=== PATIENT | male | born 1945 | race Caucasian/White ===

== ENCOUNTER 2016-04-25 14:23 | Emergency (ER) ==
[2016-04-25 14:31] VITALS: BP 128/67; TEMP 98.4; BMI 18.6
--- NOTE | 2016-04-25 15:26 | CT ---
EXAM: CT of the chest without contrast History: Right chest wall pain and cough. Comparison: Chest radiograph 02/09/2016, chest CT 02/06/2016 Technique: Multiplanar CT images through the thorax were obtained without the administration of IV contrast. 3-D reconstructions were also provided. Findings: Heart size is within normal limits. No pericardial effusion. Coronary calcifications. Ectatic ascending aorta again noted. No pathologically enlarged axillary or mediastinal lymph nodes . Limited evaluation for hilar lymph nodes without IV contrast but no bulky hilar adenopathy is see n. Calcified granulomas again seen within the thorax. Emphysema again noted. Resolved left lower lobe infiltrate. Interval development of mild right lower lobe infiltrate. No pneumothorax. No pl eural fluid. Within the visualized upper abdomen, calcified granulomas within the liver and spleen. Cholecystect [place]. Left adrenal adenoma again noted. Scattered colonic stool. Tiny hiatal hernia. Mid th oracic compression deformity is not significantly changed and no significant interval change in the compression deformity within the lower thoracic and visualized lumbar spine. A few old healed right -sided rib fractures. Subacute appearing right posterior 11th rib fracture with callus formation. Impression: 1. Interval development of mild right lower lobe infiltrate. Resolved left lower lobe infiltrate. 2. Emphysema. 3. Ectatic ascending aorta. 4. Coronary artery disease. 5. Subacute right posterior 11th rib fracture.
--- NOTE | 2016-04-25 15:34 | ED.PDOC ---
General ED Provider: Dr. AWA OCONNOR-ER Chief Complaint: Chest Wall Injury/Pain Stated Complaint: i coughed and i hurt Time Seen by Physician: 14:30 Mode of Arrival: Walk-In Information Source: Patient Exam Limitations: No limitations [facility] Nursing and Triage Documentation Reviewed and Agree: Yes Trauma/Injury Complaint Exam - Truncal Trauma Complaint/Exam Location of Pain: Reports: Right, Lower, Posterior Onset: 2 days Symptoms Are: Still present Onset of Pain: Reports: Immediate Initial Severity: Mild Current Severity: Mild Mechanism: Reports: Other Aggravating: Reports: Deep breathing, Cough Alleviating: Reports: None Associated Signs and Symptoms: Denies: Short of air, Chest pain, Cough, Hematuria, Abdominal pain, Fever, Nausea, Vomiting Immobilization Removed Post Exam: No Vertebral Tenderness Present: No Vertebral Deformity Present: No Trachial Deviation Present: No JVD Present: No Crepitus Present: No Diminished Breath Sounds: No Reproducible Pain at: right chest wall Muffled Heart Sounds Present: No Paradoxical Chest Wall Movement Present: No Abdominal Guarding Present: No Abdominal Rigidity Present: No Referred Shoulder Pain (Kehr's Sign) Present: No Skin Findings: Present: Normal findings Differential Diagnoses: Chest Wall Contusion, Rib Fracture Review of Systems - Review Of Systems Constitutional: Reports: No symptoms Eyes: Reports: No symptoms Ears, Nose, Mouth, Throat: Reports: No symptoms Respiratory: Reports: Cough Cardiac: Reports: Chest pain (chest wall pain with coughing) GI: Reports: No symptoms : Reports: No symptoms Musculoskeletal: Reports: No symptoms Skin: Reports: No symptoms Neurological: Reports: No symptoms Endocrine: Reports: No symptoms Hematologic/Lymphatic: Reports: No symptoms All Other Systems: Reviewed and Negative Past Medical History - Past Medical History Previously Healthy: No Endocrine: Reports: Dyslipidemia Cardiovascular: Reports: Hypertension Respiratory: Reports: COPD Hematological: Reports: None Gastrointestinal: Reports: GERD Genitourinary: Reports: None Neuro/Psych: Reports: None Musculoskeletal: Reports: Back Pain, Other Cancer: Reports: None Other Pertinent Past Medical History: BACK PROBLEMS, EMPHESEMA: 12/06/15 hospitalized 12/04/15. with back pain. - Surgical History General Surgical History: Reports: Cholecystectomy, Orthopedic (right hipSEVERAL PAST OPERATIONS ON RIGHT HIP IN THE PAST), Back Surgery - Family History Family History: Reports: None - Social History Smoking Status: Current every day smoker, Heavy tobacco smoker Hx Substance Use: No Alcohol Screening: None Lives: With family - Immunizations Influenza Vaccine within 12 Months: No Pneumococcal Vaccine up to Date: Yes (LAST YEAR) Physical Exam - Physical Exam Appearance: Well-appearing Pain Distress: Mild Eyes: NEYDA, EOMI, Conjunctiva clear ENT: Ears normal, Nose normal, Oropharynx normal Neck: Supple Respiratory: Airway patent, Breath sounds clear, Breath sounds equal, Respirations nonlabored Cardiovascular: RRR (noted right chest wall pain to palpation), Pulses normal, No rub, No murmur GI/: Soft Musculoskeletal: Normal strength Skin: Warm, Dry, Normal color Neurological: Sensation intact, Motor intact, Reflexes intact, Cranial nerves intact, Alert, Oriented Psychiatric: Affect appropriate, Mood appropriate Interpretation - Radiology Interpretation Radiology Interpretation By: Radiologist Radiology Results: Negative Exam Interpreted: CT Scan Critical Care Note - Critical Care Note Total Time (mins): 0 Course - Course Orders, Labs, Meds: Orders Category Date Time Status CT CHEST W/O CONTRAST Stat RADS 04/25/16 14:41 Completed Vital Signs: Temp Pulse Resp BP Pulse Ox 04/25/16 14:24 98.4 F 86 20 128/67 96 Departure - Departure Time of Disposition: 15:34 Disposition: HOME SELF-CARE Discharge Problem: Chest wall pain Instructions: Chest Wall Pain (ED) Condition: Good Pt referred to PMD for follow-up: Yes Additional Instructions: norco 7.5mg q 4hrs prn pain #15--levaquin 500mg #7---f/u with pcp Allergies/Adverse Reactions: Allergies No Known Allergies Allergy (Verified 04/25/16 14:35) Home Medications: Ambulatory Orders Morphine Sulfate [Morphine Sulfate ER] 30 mg PO BID PRN #30 cap.er.pel 01/24/16 Gabapentin [Neurontin] 300 mg PO QID #1 02/09/16 Oxycodone-Acetaminophen 10-325 [Percocet 10-325] 1 tab PO Q4H #1 tablet Polyethylene Glycol 3350 [Miralax] 17 gm PO DAILY PRN #1 delmi 03/02/16 Disposition Discussed With: Patient
== END 2016-04-25 15:44 | disposition home or self-care (01) ==
LOC: ED 14:23
DX: R07.89 Other chest pain (principal); R05 Cough; F17.210 Nicotine dependence, cigarettes, uncomplicated
CPT/HCPCS: 99282

== ENCOUNTER 2016-05-03 17:55 | Emergency (ER) | payer OTHER ==
[2016-05-03 18:04] VITALS: BP 160/74; TEMP 98; BMI 19.1
--- NOTE | 2016-05-03 18:17 | ED.PDOC ---
General Stated Complaint: Patient iis a 71 year old male who come to the Er with shortness of breath admits to smoking, He states he was recently treated for pneumonia. Took last antibiotic yesterday. Also c/o swelling both legs x 4 months. Does have rib pain Fracture on the left that happened from couging. Time Seen by Physician: 19:21 Exam Limitations: No limitations Nursing and Triage Documentation Reviewed and Agree: Yes <PAULY BAEZA - Last Filed: 05/03/16 21:45> Mode of Arrival: Walk-In Information Source: Patient <USMAN HERNANDEZ JR - Last Filed: 05/04/16 07:04> ED Provider: Dr. USMAN HERNANDEZ JR (PAULY BAEZA) (USMAN HERNANDEZ JR) Chief Complaint: Respiratory Complaint Primary Care Provider: (PAULY BAEZA) Review of Systems - Review Of Systems Constitutional: Reports: No symptoms Eyes: Reports: No symptoms Ears, Nose, Mouth, Throat: Reports: No symptoms Respiratory: Reports: Cough, Short of air, Wheezing Cardiac: Reports: No symptoms GI: Reports: No symptoms : Reports: No symptoms Musculoskeletal: Reports: Joint swelling Skin: Reports: No symptoms Neurological: Reports: No symptoms Endocrine: Reports: No symptoms Hematologic/Lymphatic: Reports: No symptoms All Other Systems: Reviewed and Negative <PAULY BAEZA - Last Filed: 05/03/16 21:45> Past Medical History - Past Medical History Previously Healthy: No Endocrine: Reports: Dyslipidemia Cardiovascular: Reports: Hypertension Respiratory: Reports: COPD Hematological: Reports: None Gastrointestinal: Reports: GERD Genitourinary: Reports: None Neuro/Psych: Reports: None Musculoskeletal: Reports: Back Pain, Other Cancer: Reports: None Other Pertinent Past Medical History: BACK PROBLEMS, EMPHESEMA: 12/06/15 hospitalized 12/04/15. with back pain. - Surgical History General Surgical History: Reports: Cholecystectomy, Orthopedic (right hipSEVERAL PAST OPERATIONS ON RIGHT HIP IN THE PAST), Back Surgery - Family History Family History: Reports: None - Social History Smoking Status: Current every day smoker Hx Substance Use: No Alcohol Screening: None - Immunizations Tetanus Shot up to Date: (unknown) Influenza Vaccine within 12 Months: No Pneumococcal Vaccine up to Date: Yes (LAST YEAR) <USMAN HERNANDEZ JR - Last Filed: 05/04/16 07:04> Physical Exam - Physical Exam Appearance: Ill-appearing Ill-appearing: Mild Pain Distress: Mild Neck: Supple Respiratory: Airway patent Musculoskeletal: Edema Psychiatric: Affect appropriate, Mood appropriate <USMAN HERNANDEZ JR - Last Filed: 05/04/16 07:04> Interpretation - Radiology Interpretation Radiology Interpretation By: Radiologist Radiology Results: Negative Exam Interpreted: CXR <PAULY BAEZA - Last Filed: 05/03/16 21:45> Re-Evaluation - Re-Evaluation Time of Re-Evaluation: 21:42 Status: Improved (feel better after breathing treatments. ) <PAULY BAEZA - Last Filed: 05/03/16 21:45> Physician Notification - Case Discussed Endorsed To/Discussed With: DR BAEZA Time of Discussion: 19:20 <USMAN HERNANDEZ JR - Last Filed: 05/04/16 07:04> Critical Care Note - Critical Care Note Total Time (mins): 0 <PAULY BAEZA - Last Filed: 05/03/16 21:45> Course - Course Hematology/Chemistry: 05/03/16 19:20 05/03/16 19:30 <PAULY BAEZA - Last Filed: 05/03/16 21:45> - Course Hematology/Chemistry: 05/03/16 19:20 05/03/16 19:30 <USMAN HERNANDEZ JR - Last Filed: 05/04/16 07:04> - Course Orders, Labs, Meds: Lab Review 05/03/16 05/03/16 19:20 19:30 WBC 11.10 H RBC 4.09 L Hgb 11.8 L Hct 37.3 L MCV 91.2 MCH 28.9 MCHC 31.6 L RDW Coeff of Nino 15.7 H Plt Count 371 Immature Gran % (Auto) 0.2 Neut % (Auto) 67.9 Lymph % (Auto) 24.1 [place] % (Auto) 6.9 Eos % (Auto) 0.0 Baso % (Auto) 0.9 Immature Gran # (Auto) 0.0 Neut # 7.5 H Lymph # 2.7 [place] # 0.8 Eos # 0.0 Baso # 0.1 Puncture Site Rb O2 Saturation 94.0 L ABG pH 7.442 ABG pCO2 40.8 ABG pO2 69.0 L ABG HCO3 27.8 H ABG Total CO2 29 H ABG Base Excess 4 H Braulio Test + FiO2 % 21.0 Sodium 137 Potassium 3.8 Chloride 98 Carbon Dioxide 28 Anion Gap 14.8 BUN 20 H Creatinine 0.88 Estimated GFR (MDRD) 85.00 BUN/Creatinine Ratio 22.72 Glucose 90 Calcium 9.6 Total Bilirubin 0.43 AST 23 ALT 14 Alkaline Phosphatase 108 Total Creatine Kinase 329 CK-MB (CK-2) 10.4 H* CK-MB (CK-2) % 3.94282 Troponin I 0.0140 B-Natriuretic Peptide 84 Total Protein 7.9 Albumin 3.8 Globulin 4.1 Albumin/Globulin Ratio 0.93 Orders Category Date Time Status ABG DRAW REQUEST Stat CARDIO 05/03/16 19:12 Completed EKG-(ED ONLY) Stat CARDIO 05/03/16 19:11 Completed NEBULIZER TREATMENT Stat CARDIO 05/03/16 20:11 Completed ED IV/MEDIPORT/POWERPORT .ONCE EMERGENCY 05/03/16 20:11 Active ABG Stat LAB 05/03/16 19:30 Completed B-TYPE NATRIURETIC PEPTIDE Stat LAB 05/03/16 19:30 Completed BLOOD CULTURE Stat LAB 05/03/16 19:30 Received CBC W/ AUTO DIFF Stat LAB 05/03/16 19:20 Completed COMPREHENSIVE METABOLIC PANEL Stat LAB 05/03/16 19:30 Completed CREATINE KINASE Stat LAB 05/03/16 19:30 Completed TROPONIN I Stat LAB 05/03/16 19:30 Completed 0.9 % Sodium Chloride [Saline Flush] MEDS 05/03/16 20:11 Discontinued 1 syr IVF PRN PRN Ipratropium/Albuterol Neb [Duoneb] MEDS 05/03/16 20:11 Discontinued 1 vial NEB ONCE STA Morphine Sulfate [Morphine 2 mg/ml Syringe] MEDS 05/03/16 21:35 Discontinued 2 mg IM ONCE STA CHEST, 1V AP ONLY Stat RADS 05/03/16 19:11 Completed Medications Discontinued Medications Generic Name Dose Route Start Last Admin Trade Name Freq PRN Reason Stop Dose Admin Albuterol/Ipratropium 1 vial 05/03/16 20:11 05/03/16 20:22 Duoneb NEB 05/03/16 20:12 1 vial ONCE STA Administration Morphine Sulfate 2 mg 05/03/16 21:35 05/03/16 21:41 Morphine 2 Mg/Ml Syringe IM 05/03/16 21:36 2 mg ONCE STA Administration Sodium Chloride 1 syr 05/03/16 20:11 Saline Flush IVF PRN PRN To flush IV (PAULY BAEZA) Vital Signs: Temp Pulse Resp BP Pulse Ox 05/03/16 17:56 98 F 85 24 160/74 H 97 (PAULY BAEZA) (USMAN HERNANDEZ JR) Departure - Departure Time of Disposition: 21:36 Disposition Discussed With: Patient <PAULY BAEZA - Last Filed: 05/03/16 21:45> - Departure Pt referred to PMD for follow-up: No (DEFER TO DR BAEZA) <USMAN HERNANDEZ JR - Last Filed: 05/04/16 07:04> - Departure Disposition: HOME SELF-CARE Discharge Problem: Bilateral lower extremity edema, Rib pain on right side Instructions: Rib Contusion (ED), Chest Wall Pain (ED), Leg Edema (ED) Condition: Stable Additional Instructions: increase you Lasix to 40mg daily Call PCP in the morning and let them know that you have increased the Lasix medications Allergies/Adverse Reactions: Allergies No Known Allergies Allergy (Verified 05/03/16 18:07) Home Medications: Ambulatory Orders Morphine Sulfate [Morphine Sulfate ER] 30 mg PO BID PRN #30 cap.er.pel 01/24/16 Gabapentin [Neurontin] 300 mg PO QID #1 02/09/16 Oxycodone-Acetaminophen 10-325 [Percocet 10-325] 1 tab PO Q4H #1 tablet Polyethylene Glycol 3350 [Miralax] 17 gm PO DAILY PRN #1 delmi 03/02/16
[2016-05-03 19:39] LABS: BASOPHILS # (AUTO) 0.1 K/uL (0-0.2); BASOPHILS % (AUTO) 0.9 % (0.0-3.0); HEMATOCRIT 37.3 % (42.0-52.0); HEMOGLOBIN 11.8 g/dl (14.0-18.0); IMMATURE GRANULOCYTE % (AUTO) 0.2 % (0.0-5.0); LYMPHOCYTES # (AUTO) 2.7 K/uL (0.60-3.4); LYMPHOCYTES % (AUTO) 24.1 (10.0-50.0); MEAN CORPUSCULAR HEMOGLOBIN 28.9 pg (27.0-31.0); MEAN CORPUSCULAR HGB CONC 31.6 (31.8-35.4); MEAN CORPUSCULAR VOLUME 91.2 fl (80.0-94.0); MONOCYTES # (AUTO) 0.8 K/uL (0.4-2.0); MONOCYTES % (AUTO) 6.9 (0-10); NEUTROPHILS # (AUTO) 7.5 K/ul (2.0-6.9); NEUTROPHILS % (AUTO) 67.9; PLATELET COUNT 371 10^3/uL (140-440); RED BLOOD COUNT 4.09 10^6/ul (4.70-6.10)
[2016-05-03 19:52] LABS: ABG BASE EXCESS 4 (-2.0-2.0); ABG HCO3 27.8 (22.0-26.0); ABG PCO2 40.8 mmHg (35-45); ABG PH 7.442 (7.35-7.45); ABG TCO2 29 (22.0-28.0)
[2016-05-03] MEDS ORDERED: DUONEB NEB STA (20:11)
[2016-05-03] MEDS ORDERED: MORPHINE 4 MG/ML SYRINGE IVP STA (20:11)
[2016-05-03] MEDS ORDERED: ZOFRAN 4 MG/2 ML IVP STA (20:11)
[2016-05-03 20:25] LABS: ALBUMIN 3.8 g/dL (3.4-5.0); ALBUMIN/GLOBULIN RATIO 0.93; ANION GAP 14.8; BILIRUBIN,TOTAL 0.43 mg/dL (0.00-1.20); BUN/CREATININE RATIO 22.72; CALCIUM 9.6 mg/dL (8.2-10.2); CREATININE 0.88 mg/dL (0.60-1.10); POTASSIUM 3.8 mmol/L (3.5-5.1); TOTAL PROTEIN 7.9 g/dL (5.8-8.1); TROPONIN I 0.014 ng/ml (0.0000-0.4000)
[2016-05-03 20:29] LABS: CREATINE KINASE MB 10.4 ng/ml (0.0-3.6)
--- NOTE | 2016-05-03 20:39 | DI ---
EXAM: Chest two views HISTORY: Shortness of breath COMPARISON: 02/09/2016 TECHNIQUE: Two views of the chest were performed FINDINGS: The lungs are clear. There is no pleural effusion or pneumothorax. The heart is normal in size. The mediastinal contour is normal. Old fourth right rib fracture. There are no acute abno rmalities of the bones. IMPRESSION: 1. No acute cardiopulmonary process. 2. Chronic obstructive pulmonary disease
[2016-05-03] MEDS ORDERED: MORPHINE 2 MG/ML SYRINGE IM STA (21:35)
== END 2016-05-03 22:00 | disposition home or self-care (01) ==
LOC: ED 17:55
DX: R60.0 Localized edema (principal); R07.81 Pleurodynia; R06.02 Shortness of breath; I10 Essential (primary) hypertension; J44.9 Chronic obstructive pulmonary disease, unspecified; F17.210 Nicotine dependence, cigarettes, uncomplicated; E78.5 Hyperlipidemia, unspecified; Z79.899 Other long term (current) drug therapy
CPT/HCPCS: 36415; 80053; 82550; 82553; 82803; 83880; 84484; 85025; 87040; 93005; 93010; 94640; 96372; 99283

== ENCOUNTER 2016-05-23 11:35 | Emergency (ER) ==
[2016-05-23 11:40] VITALS: BP 151/93; TEMP 97.1; BMI 17.9
--- NOTE | 2016-05-23 11:53 | ED.PDOC ---
General ED Provider: Dr. USMAN HERNANDEZ JR Chief Complaint: Chest Wall Injury/Pain Stated Complaint: states he has a fractured posterior lower right rib 2-3 weeks ago. states now having anterior pain to anterior right lower ribs. patient states there is "something in there." states that he coughed and that's what fractured posterior rib. patient thinks now has a fracture in the front. 1 WEEK 97.1 84 16 98% 151/93 10 TOOK PERCOCET. SMOKER Time Seen by Physician: 11:51 Mode of Arrival: Walk-In Information Source: Patient Exam Limitations: No limitations Primary Care Provider: BON LE Nursing and Triage Documentation Reviewed and Agree: No Review of Systems - Review Of Systems Constitutional: Reports: No symptoms Eyes: Reports: No symptoms Ears, Nose, Mouth, Throat: Reports: Throat pain Respiratory: Reports: Cough, Short of air Cardiac: Reports: Chest pain GI: Reports: No symptoms : Reports: No symptoms Musculoskeletal: Reports: Muscle pain, Other (RIGHT RIBS) Skin: Reports: No symptoms Neurological: Reports: No symptoms Endocrine: Reports: No symptoms Hematologic/Lymphatic: Reports: No symptoms All Other Systems: Other Past Medical History - Past Medical History Previously Healthy: No Endocrine: Reports: Dyslipidemia, Other (rheumatic fever as a child) Cardiovascular: Reports: Hypertension, A-Fib Respiratory: Reports: COPD Hematological: Reports: None Gastrointestinal: Reports: GERD, Liver Genitourinary: Reports: None Neuro/Psych: Reports: None, Migraine Musculoskeletal: Reports: Arthritis, Back Pain, Other Cancer: Reports: None Other Pertinent Past Medical History: BACK PROBLEMS, EMPHESEMA: 12/06/15 hospitalized 12/04/15. with back pain. - Surgical History General Surgical History: Reports: Cholecystectomy, Orthopedic (right hipSEVERAL PAST OPERATIONS ON RIGHT HIP IN THE PAST), Back Surgery - Family History Family History: Reports: None - Social History Smoking Status: Current every day smoker Hx Substance Use: No Alcohol Screening: None - Immunizations Influenza Vaccine within 12 Months: No Pneumococcal Vaccine up to Date: Yes (LAST YEAR) Physical Exam - Physical Exam Appearance: Well-appearing Pain Distress: Moderate Eyes: NEYDA, EOMI, Conjunctiva clear ENT: Ears normal, Nose normal, Oropharynx normal Neck: Supple Respiratory: Airway patent, Breath sounds clear, Breath sounds equal, Respirations nonlabored Cardiovascular: RRR, Pulses normal, No rub, No murmur GI/: Soft, Nontender, No masses, Bowel sounds normal, No Organomegaly Musculoskeletal: Normal strength, ROM intact, No edema, No calf tenderness ( [id number] RIGHT CHEST RIB9-10) Skin: Warm, Dry, Normal color Neurological: Sensation intact, Motor intact, Reflexes intact, Cranial nerves intact, Alert, Oriented Psychiatric: Affect appropriate, Mood appropriate Critical Care Note - Critical Care Note Total Time (mins): 0 Course - Course Hematology/Chemistry: 05/23/16 12:20 05/23/16 12:20 Orders, Labs, Meds: Lab Review 05/23/16 05/23/16 12:20 14:10 WBC 9.52 RBC 3.97 L Hgb 11.5 L Hct 35.4 L MCV 89.2 MCH 29.0 MCHC 32.5 RDW Coeff of Nino 15.3 H Plt Count 335 Immature Gran % (Auto) 0.3 Neut % (Auto) 69.8 Lymph % (Auto) 23.3 [place] % (Auto) 5.9 Eos % (Auto) 0.1 Baso % (Auto) 0.6 Immature Gran # (Auto) 0.0 Neut # 6.6 Lymph # 2.2 [place] # 0.6 Eos # 0.0 Baso # 0.1 Sodium 136 Potassium 3.9 Chloride 97 L Carbon Dioxide 26 Anion Gap 16.9 BUN 21 H Creatinine 0.82 Estimated GFR (MDRD) 92.00 BUN/Creatinine Ratio 25.60 Glucose 99 Calcium 9.5 Total Bilirubin 0.31 AST 43 H ALT 25 Alkaline Phosphatase 87 Total Protein 7.3 Albumin 3.6 Globulin 3.7 Albumin/Globulin Ratio 0.97 Amylase 33 Lipase 11 Urine Color Yellow Urine Clarity Clear Urine pH 7.0 Ur Specific [place] 1.015 Urine Protein Negative Urine Glucose (UA) Negative Urine Ketones Negative Urine Blood Trace-intact Urine Nitrite Negative Urine Bilirubin Negative Urine Urobilinogen 0.2 Ur Leukocyte Esterase Negative Urine Microscopic RBC 0-2 Urine Microscopic WBC 0-2 Ur Squamous Epith Cells Not present H. pylori IgG Antibody Negative Orders Category Date Time Status AMYLASE Stat LAB 05/23/16 12:20 Completed CBC W/ AUTO DIFF Stat LAB 05/23/16 12:20 Completed COMPREHENSIVE METABOLIC PANEL Stat LAB 05/23/16 12:20 Completed H. PYLORI SCREEN Stat LAB 05/23/16 12:20 Completed LIPASE Stat LAB 05/23/16 12:20 Completed URINALYSIS C & S IF INDICATED Stat LAB 05/23/16 14:10 Completed Hydromorphone HCl [Dilaudid 1 mg/ml Syringe] MEDS 05/23/16 14:19 Discontinued 1 mg IM ONCE STA Ondansetron HCl/Pf [Zofran 4 mg/2 ml] MEDS 05/23/16 14:20 Discontinued 4 mg IM ONCE STA CT ABDOMEN/PELVIS WO CONTRAST Stat RADS 05/23/16 11:58 Completed Medications Discontinued Medications Generic Name Dose Route Start Last Admin Trade Name Freq PRN Reason Stop Dose Admin Hydromorphone HCl 1 mg 05/23/16 14:19 05/23/16 14:36 Dilaudid 1 Mg/Ml Syringe IM 05/23/16 14:20 1 mg ONCE STA Administration Ondansetron HCl 4 mg 05/23/16 14:20 05/23/16 14:36 Zofran 4 Mg/2 Ml IM 05/23/16 14:21 4 mg ONCE STA Administration Vital Signs: Temp Pulse Resp BP Pulse Ox 05/23/16 11:35 97.1 F L 84 16 151/93 H 98 Departure - Departure Time of Disposition: 14:16 Disposition: HOME SELF-CARE Discharge Problem: Ribs, multiple fractures Instructions: Rib Fracture (ED) Condition: Fair Pt referred to PMD for follow-up: Yes Additional Instructions: CALL PMD FOR REFILL ON PAIN MEDICATION MAY ADD BENADRYL FOR BETTER PAIN CONTROL ADD COUGH MEDICATION FOUR TIMES A DAY (MAY USE ROBITUSSIN WITH CODEINE IF NOT DROWSY) MAY CONTINUE GABAPENTIN FOR PAIN Prescriptions: Diphenhydramine HCl [Benadryl] 25 mg PO QID PRN #30 capsule PRN Reason: Severe Pain Gabapentin 300 mg PO TID PRN #30 capsule PRN Reason: PAIN Guaifenesin/Codeine Phosphate [Robitussin AC Syrup] 10 ml PO Q6H PRN #240 ml PRN Reason: Cough Allergies/Adverse Reactions: Allergies No Known Allergies Allergy (Verified 05/23/16 11:40) Home Medications: Ambulatory Orders Morphine Sulfate [Morphine Sulfate ER] 30 mg PO BID PRN #30 cap.er.pel 01/24/16 Gabapentin [Neurontin] 300 mg PO QID #1 02/09/16 Oxycodone-Acetaminophen 10-325 [Percocet 10-325] 1 tab PO Q4H #1 tablet Polyethylene Glycol 3350 [Miralax] 17 gm PO DAILY PRN #1 delmi 03/02/16 Diphenhydramine HCl [Benadryl] 25 mg PO QID PRN #30 capsule 05/23/16 Gabapentin 300 mg PO TID PRN #30 capsule 05/23/16 Guaifenesin/Codeine Phosphate [Robitussin AC Syrup] 10 ml PO Q6H PRN #240 ml 05/08
[2016-05-23 12:25] LABS: BASOPHILS # (AUTO) 0.1 K/uL (0-0.2); BASOPHILS % (AUTO) 0.6 % (0.0-3.0); EOSINOPHILS % (AUTO) 0.1 % (0.0-7.0); HEMATOCRIT 35.4 % (42.0-52.0); HEMOGLOBIN 11.5 g/dl (14.0-18.0); IMMATURE GRANULOCYTE % (AUTO) 0.3 % (0.0-5.0); LYMPHOCYTES # (AUTO) 2.2 K/uL (0.60-3.4); LYMPHOCYTES % (AUTO) 23.3 (10.0-50.0); MEAN CORPUSCULAR HGB CONC 32.5 (31.8-35.4); MEAN CORPUSCULAR VOLUME 89.2 fl (80.0-94.0); MONOCYTES # (AUTO) 0.6 K/uL (0.4-2.0); MONOCYTES % (AUTO) 5.9 (0-10); NEUTROPHILS # (AUTO) 6.6 K/ul (2.0-6.9); NEUTROPHILS % (AUTO) 69.8; PLATELET COUNT 335 10^3/uL (140-440); RED BLOOD COUNT 3.97 10^6/ul (4.70-6.10); WHITE BLOOD COUNT 9.52 K/ul (4.2-10.2)
[2016-05-23 12:35] LABS: H. PYLORI ANTIBODY NEGATIVE (NEGATIVE); H.PYLORI INTERNAL QC INTERNAL QC VALID
--- NOTE | 2016-05-23 12:39 | CT ---
EXAM: CT abdomen pelvis without contrast HISTORY: Vomiting with right upper quadrant tenderness and right rib tenderness COMPARISON: CT abdomen pelvis 02/06/2016 and 11/21/2012 TECHNIQUE: Serial axial images of the abdomen pelvis were performed from the lung bases through the inferior pelvis without contrast. These were viewed in multiple planes. FINDINGS: The lungs demonstrate mild emphysema and right basilar atelectasis. The heart is unremar kable. There are minimally displaced fractures at the anterior right ninth, tenth and eleventh ribs . Evaluation is limited due to lack of contrast. The liver demonstrates numerous calcified granuloma. There is no focal hepatic lesion identified. There is no evidence of traumatic liver injury or he morrhage. The gallbladder has been removed. The spleen demonstrates numerous calcified granulomas. Low attenuation right adrenal lesion is stable since 2012. The left adrenal gland is normal. The kidneys demonstrate no stones or hydronephrosis or proximal hydroureter. There is artifact from po sterior fusion hardware in the lower lumbar spine and right hip arthroplasty, limiting evaluation of the distal ureters and bladder. The pancreas is unremarkable. The common duct is prominent and un changed. Small bowel in the abdomen and pelvis demonstrates minimal fluid filled loops of small bowel in the abdomen. The colon demonstrates few diverticuli without diverticulitis. The appendix is not identi fied with streak artifact obscuring this region. There is a nonobstructing loop of bowel in the lef t inguinal canal. The osseous structures demonstrate posterior fusion hardware from the L4-S1 with no significant inte rval change or evidence of hardware fracture or loosening. Disc spacer material is present with deg enerative change and postoperative changes present. Compression deformity at L3 is unchanged. L2 v ertebraplasty/kyphoplasty with material in the disc spaces also unchanged. T12 compression fracture is unchanged from prior exam as well. There is a probable subtle left sacral insufficiency fractur e present. IMPRESSION: 1. Acute right-sided rib fractures from the right 9th through 11th ribs. No underlying liver injur y or hemorrhage is identified on this limited evaluation. 2. No change in multiple compression deformities and kyphoplasty/vertebraplasty in the lumbar spine with probable left sacral insufficiency fracture. Posterior spinal hardware and right hip arthropl asty hardware are unchanged and stable in appearance. 3. Nonobstructing loop of bowel is noted in the left inguinal hernia. 4. Stable emphysematous disease and right basilar atelectasis.
[2016-05-23 12:44] LABS: ALBUMIN 3.6 g/dL (3.4-5.0); ALBUMIN/GLOBULIN RATIO 0.97; ANION GAP 16.9; BILIRUBIN,TOTAL 0.31 mg/dL (0.00-1.20); BUN/CREATININE RATIO 25.6; CALCIUM 9.5 mg/dL (8.2-10.2); CREATININE 0.82 mg/dL (0.60-1.10); POTASSIUM 3.9 mmol/L (3.5-5.1); TOTAL PROTEIN 7.3 g/dL (5.8-8.1)
[2016-05-23] MEDS ORDERED: DILAUDID 1 MG/ML SYRINGE IM STA (14:19)
[2016-05-23] MEDS ORDERED: ZOFRAN 4 MG/2 ML IM STA (14:20)
[2016-05-23 14:34] LABS: BILIRUBIN,URINE Negative (NEGATIVE); KETONES,URINE Negative (NEGATIVE); LEUKOCYTE ESTERASE ,URINE Negative (NEGATIVE); NITRITE,URINE Negative (NEGATIVE); PROTEIN,URINE Negative (NEGATIVE); URINE, BLOOD Trace-intact (NEGATIVE)
[2016-05-23 14:39] LABS: ADD URINE MICROSCOPIC YES
== END 2016-05-23 14:58 | disposition home or self-care (01) ==
LOC: ED 11:35
DX: S22.41XA Multiple fractures of ribs, right side, initial encounter for closed fracture (principal); R05 Cough; I10 Essential (primary) hypertension; I48.91 Unspecified atrial fibrillation; F17.210 Nicotine dependence, cigarettes, uncomplicated; X58.XXXA Exposure to other specified factors, initial encounter; Z79.899 Other long term (current) drug therapy
CPT/HCPCS: 36415; 80053; 81001; 82150; 83690; 85025; 86677; 96372; 99283

== ENCOUNTER 2016-06-24 13:01 | Emergency (ER) ==
[2016-06-24 13:06] VITALS: BP 146/77; TEMP 98.8; BMI 17.2
--- NOTE | 2016-06-24 13:12 | ED.PDOC ---
General ED Provider: Dr. USMAN HERNANDEZ JR Chief Complaint: Back Pain Stated Complaint: pt states he has broke his back. denies any injury or fall. states he has been picking walker up to get over doorways and thinks this is what has hurt his back. has pain to right lower lumbar area [End]2 days 98.8 97 20 99% 146/77 01/29 Time Seen by Physician: 13:10 Mode of Arrival: Wheelchair Information Source: Patient Exam Limitations: No limitations Primary Care Provider: B[facility] LE Nursing and Triage Documentation Reviewed and Agree: No Review of Systems - Review Of Systems Constitutional: Reports: Malaise Eyes: Reports: No symptoms Ears, Nose, Mouth, Throat: Reports: No symptoms Respiratory: Reports: No symptoms Cardiac: Reports: No symptoms, Edema (chronic) GI: Reports: No symptoms : Reports: No symptoms Musculoskeletal: Reports: Back pain (worse past three days) Skin: Reports: No symptoms Neurological: Reports: No symptoms Endocrine: Reports: No symptoms Hematologic/Lymphatic: Reports: No symptoms All Other Systems: Other Past Medical History - Past Medical History Previously Healthy: No Endocrine: Reports: Dyslipidemia, Other (rheumatic fever as a child) Cardiovascular: Reports: Hypertension, A-Fib Respiratory: Reports: COPD Hematological: Reports: None, Other (as a child) Gastrointestinal: Reports: GERD, Liver Genitourinary: Reports: None Neuro/Psych: Reports: None, Migraine Musculoskeletal: Reports: Arthritis, Back Pain, Other Cancer: Reports: None Other Pertinent Past Medical History: BACK PROBLEMS, EMPHESEMA: 12/06/15 hospitalized 12/04/15. with back pain. - Surgical History General Surgical History: Reports: Cholecystectomy, Orthopedic (right hipSEVERAL PAST OPERATIONS ON RIGHT HIP IN THE PAST), Back Surgery - Family History Family History: Reports: None - Social History Smoking Status: Current every day smoker, Heavy tobacco smoker Hx Substance Use: No Alcohol Screening: None - Immunizations Influenza Vaccine within 12 Months: No Pneumococcal Vaccine up to Date: Yes (LAST YEAR) Physical Exam - Physical Exam Appearance: Well-appearing, Thin, Cachectic Pain Distress: Moderate Neck: Supple Respiratory: Airway patent Musculoskeletal: No calf tenderness (tender right back "It goes all the way across"), Limited ROM, Limited strength, Edema Critical Care Note - Critical Care Note Total Time (mins): 0 Course - Course Orders, Labs, Meds: Orders Category Date Time Status Hydrocodone Bit/Acetaminophen [[place] 10-325] MEDS 06/24/16 13:43 Discontinued 1 tab PO ONCE STA CT LUMBAR SPINE W/O CONTRAST Stat RADS 06/24/16 13:12 Completed Medications Discontinued Medications Generic Name Dose Route Start Last Admin Trade Name Freq PRN Reason Stop Dose Admin Acetaminophen/Hydrocodone Bitart 1 tab 06/24/16 13:43 06/24/16 14:00 [place] 10-325 PO 06/24/16 13:44 1 tab ONCE STA Administration Vital Signs: Temp Pulse Resp BP Pulse Ox 06/24/16 13:01 98.8 F 97 H 20 146/77 H 99 Departure - Departure Time of Disposition: 14:38 Disposition: HOME SELF-CARE Discharge Problem: Backache Instructions: Chronic Back Pain (ED), Acute Low Back Pain (ED) Condition: Good Pt referred to PMD for follow-up: Yes Additional Instructions: NO FRACTURES SEEN ONE TIME ONLY MEDICATION REFILL MUST FOLLOW UP WITH PMD NO FURTHER PAIN MEDICATIONS FOR THIS PROBLEM THROUGH THE ER Prescriptions: Oxycodone HCl/Acetaminophen [Percocet 10-325 mg Tablet] 1 each PO Q4HR PRN #30 tablet PRN Reason: Severe Pain Morphine Sulfate [Morphine Sulfate ER] 30 mg PO BID PRN #30 cap.er.pel PRN Reason: Severe Pain Allergies/Adverse Reactions: Allergies No Known Allergies Allergy (Verified 06/24/16 13:06) Home Medications: Ambulatory Orders Morphine Sulfate [Morphine Sulfate ER] 30 mg PO BID PRN #30 cap.er.pel 01/24/16 Oxycodone-Acetaminophen 10-325 [Percocet 10-325] 1 tab PO Q4H #1 tablet Polyethylene Glycol 3350 [Miralax] 17 gm PO DAILY PRN #1 delmi 03/02/16 Diphenhydramine HCl [Benadryl] 25 mg PO QID PRN #30 capsule 05/23/16 Gabapentin 300 mg PO TID PRN #30 capsule 05/23/16 Morphine Sulfate [Morphine Sulfate ER] 30 mg PO BID PRN #30 cap.er.pel 06/24/16 Oxycodone HCl/Acetaminophen [Percocet 10-325 mg Tablet] 1 each PO Q4HR PRN #30 tablet 06/24/16
[2016-06-24] MEDS ORDERED: NORCO 10-325 PO STA (13:43)
--- NOTE | 2016-06-24 13:57 | CT ---
EXAM: CT lumbar spine without contrast HISTORY: Pain COMPARISON: 02/06/2016 TECHNIQUE: CT lumbar spine performed without intravenous contrast. Coronal and sagittal reformatte d images obtained. FINDINGS: Bones are markedly demineralized. There is posterior spinal fusion hardware at L4 - L5-S 1. There are. Hardware appears intact. Redemonstration of compression fractures of T12, L2, L3, and L5, ranging from moderate to severe and unchanged with vertebral plasty change at L2. No new compr ession deformity is identified. Redemonstration of bilateral sacral ala fractures and S2 fracture w ith interval partial sclerotic healing changes. No new fracture identified. Grade 1 anterolisthesis L4 on L5 and L5 on S1, unchanged. Redemonstration of severe diffuse chronic discogenic disease and facet arthrosis with multilevel central canal and neural foraminal narrowing that appears unchange d from prior examinations. Right hip arthroplasty, incompletely imaged. Aorta normal in caliber. Extensive atherosclerosis. Small hiatal hernia. Emphysema with fibrotic change at the right lung b ase. Moderate fecal retention. IMPRESSION: 1. Multiple chronic fractures of the lumbar spine and sacrum that appear unchanged. No new fractur e visualized 2. Redemonstration of severe diffuse chronic discogenic disease and facet arthrosis. 3. Posterior spinal fusion L4-S1. 4. Markedly demineralized bones.
== END 2016-06-24 14:53 | disposition home or self-care (01) ==
LOC: ED 13:01
DX: M54.5 Low back pain (principal); F17.210 Nicotine dependence, cigarettes, uncomplicated
CPT/HCPCS: 99282

== ENCOUNTER 2016-07-10 17:20 | Outpatient (CLI) | END 2016-07-10 17:21 | LOC: AMBL 17:20 | PROVIDERS: ATTEND Emergency Medicine | DX: M54.9 Dorsalgia, unspecified (principal); M79.606 Pain in leg, unspecified; M81.0 Age-related osteoporosis without current pathological fracture ==

== ENCOUNTER 2016-07-20 08:04 | Outpatient (CLI) ==
--- NOTE | 2016-07-20 09:29 | CT ---
Examination: Noncontrasted CT imaging of the abdomen pelvis. Comparison: 05/23/2016. Reason for study: Unilateral inguinal hernia. FINDINGS: No pneumothorax, pleural effusion, or focal consolidation. Similar appearing parenchymal changes are seen in the right lung base. There are similar appearing right-sided rib fractures. T he heart is not enlarged. Image interpretation is limited by the lack of intravenous contrast. Granulomatous disease is seen throughout the liver and spleen without focal lesion. The gallbladder has been removed. Atherosclerotic disease is seen within the aorta and distal arterial vasculature . Low-density right adrenal nodule is unchanged. The left adrenal gland is unremarkable. No hydronephrosis, hydroureter, or nephrolithiasis. The common bile duct is prominent in size but not significantly changed from the prior study. Similar appearing operative changes are seen after L2 vertebral plasties/kyphoplasty with interverte bral body graft spacer and pedicle screw and rita fixation spanning L4-S1. Similar appearing healing /healed fracture of the sacrum. Left-sided bowel containing inguinal hernia without evidence of obstruction. No focal small bowel d ilatation or transition point. No intra-abdominal free air. Operative changes after right hip arthroplasty obscure the fine detail in the pelvis. Impression: 1. Uncomplicated bowel containing left inguinal hernia. 2. Healing right-sided rib fractures. 3. Similar appearing compression deformities and operative changes in the lumbar spine. 4. Similar appearing emphysematous disease.
== END 2016-07-20 08:05 | disposition home or self-care (01) ==
LOC: RAD 08:04
PROVIDERS: ATTEND Nurse Practitioner Family
DX: K40.90 Unilateral inguinal hernia, without obstruction or gangrene, not specified as recurrent (principal); R30.0 Dysuria; Z12.5 Encounter for screening for malignant neoplasm of prostate
CPT/HCPCS: 36415

== ENCOUNTER 2016-08-11 12:13 | Emergency (ER) ==
[2016-08-11 12:13] VITALS: BMI 17.2
[2016-08-11 12:43] VITALS: BP 165/81; TEMP 96.2
[2016-08-11] MEDS ORDERED: TORADOL IM STA (13:36)
[2016-08-11] MEDS ORDERED: MORPHINE 4 MG/ML SYRINGE IM STA (13:36)
--- NOTE | 2016-08-11 13:41 | ED.PDOC ---
General ED Provider: Dr. PAULY BAEZA Chief Complaint: Back Pain Stated Complaint: Patient compaints of chronic back pain with history of multiple lumber fractures. Has not been able to get to the pain managment clinic. Time Seen by Physician: 13:00 Mode of Arrival: Walk-In Information Source: Patient Primary Care Provider: BON LE Nursing and Triage Documentation Reviewed and Agree: Yes Musculoskeletal Complaint Exam - Back Pain Complaint/Exam Mechanism of Injury: Reports: No known trauma Onset/Duration: Chronic weeks to months Symptoms Are: Still present Timing: Constant Initial Severity: Moderate Current Severity: Severe Location: Reports: Diffuse (lower back ) Character: Reports: Dull, Aching, Throbbing Aggravating: Reports: Movements, Lifting, Bending, Walking Associated Signs and Symptoms: Denies: Swelling, Numbness, Bladder incontinence , Bowel incontinence Related History: Reports: Similar episode TAD Risk Factors: Reports: None AAA Risk Factors: Reports: None Focal Tenderness: Yes Paraspinal Muscle Tenderness: Yes Paraspinal Muscle Spasm: Yes Scoliosis: No Lordosis: No Kyphosis: No SLR Test: Right Negative, Left Negative Hip Motion Testing Pain: Right Negative, Left Negative Focal Weakness: Present: None Focal Sensory Loss: Present: None Gait: Present: Normal Back Picture: 1 - back tenderness Differential Diagnoses: Strain, Sprain Review of Systems - Review Of Systems Constitutional: Reports: No symptoms Eyes: Reports: No symptoms Ears, Nose, Mouth, Throat: Reports: No symptoms Respiratory: Reports: No symptoms Cardiac: Reports: No symptoms GI: Reports: No symptoms : Reports: Other (Left inguinal hernia. Not strangulating. ) Musculoskeletal: Reports: Back pain, Joint pain Skin: Reports: No symptoms Neurological: Reports: Anxiety Endocrine: Reports: No symptoms Hematologic/Lymphatic: Reports: No symptoms All Other Systems: Reviewed and Negative Past Medical History - Past Medical History Previously Healthy: No Endocrine: Reports: Dyslipidemia, Other (rheumatic fever as a child) Cardiovascular: Reports: Hypertension, A-Fib Respiratory: Reports: COPD Hematological: Reports: None, Other (as a child) Gastrointestinal: Reports: GERD, Liver Genitourinary: Reports: None Neuro/Psych: Reports: None, Migraine Musculoskeletal: Reports: Arthritis, Back Pain, Other Cancer: Reports: None Other Pertinent Past Medical History: BACK PROBLEMS, EMPHESEMA: 12/06/15 hospitalized 12/04/15. with back pain. - Surgical History General Surgical History: Reports: Cholecystectomy, Orthopedic (right hipSEVERAL PAST OPERATIONS ON RIGHT HIP IN THE PAST), Back Surgery - Family History Family History: Reports: None - Social History Smoking Status: Current every day smoker, Heavy tobacco smoker Hx Substance Use: No Alcohol Screening: None - Immunizations Tetanus Shot up to Date: Yes Influenza Vaccine within 12 Months: No Pneumococcal Vaccine up to Date: Yes (LAST YEAR) Physical Exam - Physical Exam Appearance: Well-appearing, No pain distress, Well-nourished Eyes: NEYDA, EOMI, Conjunctiva clear ENT: Ears normal, Nose normal, Oropharynx normal Respiratory: Airway patent, Breath sounds clear, Breath sounds equal, Respirations nonlabored Cardiovascular: RRR, Pulses normal, No rub, No murmur GI/: Soft, Nontender, No masses, Bowel sounds normal, No Organomegaly Musculoskeletal: Normal strength, ROM intact, No edema, No calf tenderness, Limited ROM (straight leg raising ) Skin: Warm, Dry, Normal color Neurological: Sensation intact, Motor intact, Reflexes intact, Cranial nerves intact, Alert, Oriented Psychiatric: Affect appropriate, Mood appropriate, Anxious Critical Care Note - Critical Care Note Total Time (mins): 0 Course - Course Orders, Labs, Meds: Orders Category Date Time Status Ketorolac Tromethamine [Toradol] MEDS 08/11/16 13:36 Discontinued 30 mg IM ONCE STA Morphine Sulfate [Morphine 4 mg/ml Syringe] MEDS 08/11/16 13:36 Discontinued 4 mg IM ONCE STA Medications Discontinued Medications Generic Name Dose Route Start Last Admin Trade Name Freq PRN Reason Stop Dose Admin Ketorolac Tromethamine 30 mg 08/11/16 13:36 08/11/16 13:48 Toradol IM 08/11/16 13:37 30 mg ONCE STA Administration Morphine Sulfate 4 mg 08/11/16 13:36 08/11/16 13:49 Morphine 4 Mg/Ml Syringe IM 08/11/16 13:37 4 mg ONCE STA Administration Vital Signs: Temp Pulse Resp BP Pulse Ox 08/11/16 12:14 96.2 F L 88 16 165/81 H 98 Departure - Departure Time of Disposition: 13:59 Disposition: HOME SELF-CARE Discharge Problem: Backache, Chronic back pain Instructions: Inguinal Hernia (ED), Lower Back Exercises (ED), Chronic Back Pain (ED) Condition: Stable Pt referred to PMD for follow-up: Yes Additional Instructions: continue home medications Follow up with PCP in 3 days. Stop taking Benadryl Prescriptions: Hydrocodone Bit/Acetaminophen [[place] 5-325] 1 each PO Q4HR #15 tablet Allergies/Adverse Reactions: Allergies No Known Allergies Allergy (Verified 06/24/16 13:06) Home Medications: Ambulatory Orders Gabapentin 300 mg PO TID PRN #30 capsule 05/23/16 Morphine Sulfate [Morphine Sulfate ER] 30 mg PO BID PRN #30 cap.er.pel 06/24/16 Ipratropium/Albuterol Sulfate [Iprat-Albut 0.5-3(2.5) Mg/3 Ml] 3 ml IH PRN PRN 07/17/16 Prednisone 10 mg PO DIRECTED 07/17/16 Diphenhydramine HCl [Benadryl] 25 mg PO PRN PRN 08/11/16 Hydrocodone Bit/Acetaminophen [[place] 5-325] 1 each PO Q4HR #15 tablet 08/11/16 Disposition Discussed With: Patient, Family
== END 2016-08-11 15:22 | disposition home or self-care (01) ==
LOC: ED 12:13
DX: M54.5 Low back pain (principal); G89.29 Other chronic pain; K40.90 Unilateral inguinal hernia, without obstruction or gangrene, not specified as recurrent; F17.210 Nicotine dependence, cigarettes, uncomplicated
CPT/HCPCS: 96372; 99282

== ENCOUNTER 2016-08-16 16:39 | Outpatient (CLI) ==
[2016-08-16 16:50] VITALS: BMI 17.2
== END 2016-08-16 16:40 | disposition home or self-care (01) ==
LOC: AMBL 16:39
PROVIDERS: ATTEND Family Medicine
DX: R06.9 Unspecified abnormalities of breathing (principal); M54.5 Low back pain

== ENCOUNTER 2016-08-16 16:48 | Emergency (ER) ==
[2016-08-16 16:50] VITALS: BMI 17.2
[2016-08-16 17:02] VITALS: BP 145/76; TEMP 98
[2016-08-16] MEDS ORDERED: ZOFRAN 4 MG/2 ML IM STA (17:16)
[2016-08-16] MEDS ORDERED: DILAUDID 1 MG/ML SYRINGE IM STA (17:16)
--- NOTE | 2016-08-16 17:18 | ED.PDOC ---
General ED Provider: Dr. AWA OCONNOR-ER Chief Complaint: Back Pain Stated Complaint: my back hurts--im waiting on a call from pain managment Time Seen by Physician: 16:55 Mode of Arrival: Stretcher Information Source: Patient Exam Limitations: No limitations [facility] T[facility] Documentation Reviewed and Agree: Yes Musculoskeletal Complaint Exam - Back Pain Complaint/Exam Mechanism of Injury: Reports: No known trauma Onset/Duration: several weeks Symptoms Are: Still present Timing: Constant Initial Severity: Mild Current Severity: Moderate Location: Reports: Discrete Character: Reports: Dull, Aching Aggravating: Reports: Movements, Lifting, Bending, Walking Alleviating: Reports: None Associated Signs and Symptoms: Denies: Swelling, Redness, Bruising, Fever, Weakness, Numbness, Tingling, Abdominal pain, Flank pain, Bladder incontinence, Bowel incontinence, Weight loss, Pain with weight bearing Related History: Reports: Previous back injury TAD Risk Factors: Reports: Hypertension AAA Risk Factors: Reports: None Cauda Equina Risk Factors: Reports: None Epidural Abcess Risk Factors: Reports: None Focal Tenderness: Yes Paraspinal Muscle Tenderness: Yes Paraspinal Muscle Spasm: No Scoliosis: No Lordosis: No Kyphosis: No SLR Test: Right Negative, Left Negative Hip Motion Testing Pain: Right Negative, Left Negative Focal Weakness: Present: None Focal Sensory Loss: Present: None Gait: Present: Normal Differential Diagnoses: Fracture, Strain, Sprain, Other Review of Systems - Review Of Systems Constitutional: Reports: No symptoms Eyes: Reports: No symptoms Ears, Nose, Mouth, Throat: Reports: No symptoms Respiratory: Reports: No symptoms Cardiac: Reports: No symptoms GI: Reports: No symptoms : Reports: No symptoms Musculoskeletal: Reports: Back pain, Muscle stiffness Skin: Reports: No symptoms Neurological: Reports: No symptoms Endocrine: Reports: No symptoms Hematologic/Lymphatic: Reports: No symptoms All Other Systems: Reviewed and Negative Past Medical History - Past Medical History Previously Healthy: No Endocrine: Reports: Dyslipidemia, Other (rheumatic fever as a child) Cardiovascular: Reports: Hypertension, A-Fib Respiratory: Reports: COPD Hematological: Reports: None, Other (as a child) Gastrointestinal: Reports: GERD, Liver Genitourinary: Reports: None Neuro/Psych: Reports: None, Migraine Musculoskeletal: Reports: Arthritis, Back Pain, Other Cancer: Reports: None Other Pertinent Past Medical History: BACK PROBLEMS, EMPHESEMA: 12/06/15 hospitalized 12/04/15. with back pain. - Surgical History General Surgical History: Reports: Cholecystectomy, Orthopedic (right hipSEVERAL PAST OPERATIONS ON RIGHT HIP IN THE PAST), Back Surgery - Family History Family History: Reports: None - Social History Smoking Status: Current every day smoker, Heavy tobacco smoker Hx Substance Use: No Alcohol Screening: None - Immunizations Influenza Vaccine within 12 Months: No Pneumococcal Vaccine up to Date: Yes (LAST YEAR) Physical Exam - Physical Exam Appearance: Well-appearing Pain Distress: Moderate Eyes: NEYDA, EOMI, Conjunctiva clear ENT: Ears normal, Nose normal, Oropharynx normal Neck: Supple Respiratory: Airway patent Cardiovascular: RRR GI/: Soft, Nontender, No masses, Bowel sounds normal, No Organomegaly Musculoskeletal: Limited ROM Skin: Warm Neurological: Sensation intact, Motor intact, Reflexes intact, Cranial nerves intact, Alert, Oriented Psychiatric: Affect appropriate Critical Care Note - Critical Care Note Total Time (mins): 0 Course - Course Orders, Labs, Meds: Orders Category Date Time Status Hydromorphone HCl [Dilaudid 1 mg/ml Syringe] MEDS 08/16/16 17:16 Stat 1 mg IM ONCE STA Ondansetron HCl/Pf [Zofran 4 mg/2 ml] MEDS 08/16/16 17:16 Stat 4 mg IM ONCE STA Vital Signs: Temp Pulse Resp BP Pulse Ox 08/16/16 16:51 98 F 84 20 145/76 H 99 Departure - Departure Time of Disposition: 17:18 Disposition: HOME SELF-CARE Discharge Problem: Chronic back pain Qualifiers: Back pain location: low back pain Back pain laterality: midline Sciatica presence: without sciatica Qualifier Code: (M54.5) Low back pain Instructions: Chronic Back Pain (ED) Condition: Good Pt referred to PMD for follow-up: Yes Additional Instructions: percocet 5mg q 4hrs prn pain #10--f/u with pcp Allergies/Adverse Reactions: Allergies No Known Allergies Allergy (Verified 08/16/16 17:04) Home Medications: Ambulatory Orders Gabapentin 300 mg PO TID PRN #30 capsule 05/23/16 Ipratropium/Albuterol Sulfate [Iprat-Albut 0.5-3(2.5) Mg/3 Ml] 3 ml IH PRN PRN 07/17/16 Prednisone 10 mg PO DIRECTED 07/17/16 Diphenhydramine HCl [Benadryl] 25 mg PO PRN PRN 08/11/16 Disposition Discussed With: Patient
== END 2016-08-16 18:37 | disposition home or self-care (01) ==
LOC: ED 16:48
DX: M54.5 Low back pain (principal); G89.29 Other chronic pain; I10 Essential (primary) hypertension; F17.210 Nicotine dependence, cigarettes, uncomplicated
CPT/HCPCS: 96372; 99282

== ENCOUNTER 2016-09-05 19:06 | Inpatient (IN) ==
[2016-09-05] MEDS ORDERED: PERCOCET 7.5-325 PO STA (19:10)
--- NOTE | 2016-09-05 19:57 | CT ---
EXAM: CT lumbar spine without intravenous contrast 09/05/2016. Sagittal and coronal reformatted im ages obtained HISTORY: Back pain COMPARISON: 06/24/2016 FINDINGS: Posterior lumbar interbody fusion is present at L4-L5-S1. Stable partial compression fracture of L3. Stable post kyphoplasty appearance of L2. Stable partial compression fracture of T12. There is a new compression fracture at the L1 level. There is depression at the superior and inferi or end plate with internal sclerosis. There is approximately 30% loss of vertebral body height. Partial compression fracture within the S2 level appears chronic. Stable sclerosis within the sacru m. IMPRESSION: 1. There is a new partial compression fracture of the L1 vertebral body with approximately 30% loss of vertebral body height. 2. Loss vertebral body height at T12, L2 and L3 appears stable. 3. Stable postoperative changes at L4-S1.
--- NOTE | 2016-09-05 20:01 | CT ---
Examination: CT thoracic spine without contrast 09/05/2016 Clinical information: Thoracic back pain. Comparison: 02/06/2016. TECHNIQUE: Noncontrast helical imaging was performed through the thoracic spine. 2 mm sagittal, 2 mm coronal and 3 mm axial images are submitted for review. FINDINGS: The osseous structures are diffusely demineralized. There are mild chronic superior T1 an d T2 endplate depressions. There is a mild chronic superior T4 vertebral body endplate compression fracture. There is a moderate chronic anterior wedge compression fracture of T7. There is a modera te chronic biconcave T12 vertebral body compression fracture. There is an acute L1 vertebral body c ompression fracture with posterior cortical buckling. The L1 vertebral body compression fracture is new when compared to the 02/06/2016 exam. The other chronic compression deformities were present p reviously. The thoracic vertebrae are otherwise normal in height and AP alignment. There is an acc entuated thoracic kyphosis. There is a minimal S-shaped thoracic scoliosis. There is lower cervica l degenerative spondylosis. There is right greater than left T2-T3, T3-T4 and T4-T5 hypertrophic facet arthropathy. There is no osseous central spinal canal stenosis. There is T7-T8 through T12-L1 foraminal stenosis. There is a chronic L2 vertebral body compression fracture with post vertebral augmentation treatment changes . There are emphysematous changes within both lungs. There is atherosclerotic calcification of the thoracoabdominal aorta. There is a granulomatous calcification within the posterior right upper lo be. There are granulomatous calcifications within the liver and spleen. There are cholecystectomy clips within the gallbladder fossa. Impression: 1. Chronic osteoporotic T1, T2, T4, T7, T12 and L1 vertebral body compression fractures without ret ropulsion. Acute L1 vertebral body compression fracture. Chronic L2 vertebral body compression fra cture with post vertebral augmentation treatment changes. 2. Accentuated thoracic kyphosis. 3. No significant central spinal canal stenosis. 4. Multilevel foraminal stenosis. 5. ASVD. 6. Emphysema.
--- NOTE | 2016-09-05 20:09 | ED.PDOC ---
General ED Provider: Dr. AWA OCONNOR-ER Chief Complaint: Back Pain Stated Complaint: my back hurts and i cant move Time Seen by Physician: 19:10 Mode of Arrival: Walk-In Information Source: Patient Exam Limitations: No limitations [facility] and Triage Documentation Reviewed and Agree: Yes Musculoskeletal Complaint Exam - Back Pain Complaint/Exam Mechanism of Injury: Reports: No known trauma Onset/Duration: 12hrs Symptoms Are: Still present Timing: Constant Episodes Lasting: Hours Initial Severity: Mild Current Severity: Moderate Location: Reports: Discrete (lower back) Character: Reports: Aching, Throbbing, Spasmodic, Stiffness Aggravating: Reports: Movements, Lifting Alleviating: Reports: None Associated Signs and Symptoms: Denies: Swelling, Redness, Bruising, Fever, Weakness, Numbness, Tingling, Abdominal pain, Flank pain, Bladder incontinence, Bowel incontinence, Weight loss, Pain with weight bearing Related History: Reports: Previous back injury Focal Tenderness: Yes Paraspinal Muscle Tenderness: Yes Paraspinal Muscle Spasm: No Scoliosis: No Lordosis: No Kyphosis: No SLR Test: Right Negative, Left Negative Hip Motion Testing Pain: Right Negative, Left Negative Focal Weakness: Present: None Focal Sensory Loss: Present: None Gait: Present: Abnormal Differential Diagnoses: Fracture Review of Systems - Review Of Systems Constitutional: Reports: No symptoms Eyes: Reports: No symptoms Ears, Nose, Mouth, Throat: Reports: No symptoms Respiratory: Reports: No symptoms Cardiac: Reports: No symptoms GI: Reports: No symptoms : Reports: No symptoms Musculoskeletal: Reports: Back pain Skin: Reports: No symptoms Neurological: Reports: No symptoms Endocrine: Reports: No symptoms Hematologic/Lymphatic: Reports: No symptoms All Other Systems: Reviewed and Negative Past Medical History - Past Medical History Previously Healthy: No Endocrine: Reports: Dyslipidemia, Other (rheumatic fever as a child) Cardiovascular: Reports: Hypertension, A-Fib Respiratory: Reports: COPD Hematological: Reports: None, Other (as a child) Gastrointestinal: Reports: GERD, Liver Genitourinary: Reports: None Neuro/Psych: Reports: None, Migraine Musculoskeletal: Reports: Arthritis, Back Pain, Other Cancer: Reports: None Other Pertinent Past Medical History: BACK PROBLEMS, EMPHESEMA: 12/06/15 hospitalized 12/04/15. with back pain. - Surgical History General Surgical History: Reports: Cholecystectomy, Orthopedic (right hipSEVERAL PAST OPERATIONS ON RIGHT HIP IN THE PAST), Back Surgery - Family History Family History: Reports: None - Social History Smoking Status: Current every day smoker, Heavy tobacco smoker Hx Substance Use: No Alcohol Screening: None Lives: With family - Immunizations Tetanus Shot up to Date: No Influenza Vaccine within 12 Months: No Pneumococcal Vaccine up to Date: Yes (LAST YEAR) Physical Exam - Physical Exam Appearance: Well-appearing, No pain distress, Well-nourished Pain Distress: Moderate Eyes: NEYDA, EOMI, Conjunctiva clear ENT: Ears normal, Nose normal, Oropharynx normal Neck: Supple Respiratory: Airway patent Cardiovascular: RRR GI/: Soft, Nontender, No masses, Bowel sounds normal, No Organomegaly Musculoskeletal: Normal strength Skin: Warm, Dry, Normal color Neurological: Sensation intact, Motor intact, Reflexes intact, Cranial nerves intact, Alert, Oriented Psychiatric: Affect appropriate, Mood appropriate Interpretation - Radiology Interpretation Radiology Interpretation By: Radiologist Radiology Results: Positive Exam Interpreted: CT Scan Physician Notification - Case Discussed Physician Notified: dr paul Time of Notification: 20:12 Critical Care Note - Critical Care Note Total Time (mins): 0 Course - Course Orders, Labs, Meds: Orders Category Date Time Status Oxycodone-Acetaminophe 7.5-325 [Percocet 7.5-325] MEDS 09/05/16 19:10 Discontinued 1 tab PO ONCE STA CT LUMBAR SPINE W/O CONTRAST Stat RADS 09/05/16 19:[address] THORACIC SPINE W/O CONTRAST Stat RADS 09/05/16 19:11 Completed Medications Discontinued Medications Generic Name Dose Route Start Last Admin Trade Name Freq PRN Reason Stop Dose Admin Oxycodone/Acetaminophen 1 tab 09/05/16 19:10 Percocet 7.5-325 PO 09/05/16 19:11 ONCE STA Vital Signs: Temp Pulse Resp BP Pulse Ox 09/05/16 19:07 99.2 F 100 H 16 171/83 H 95 Departure - Departure Time of Disposition: 20:12 Disposition: HOME SELF-CARE Discharge Problem: Compression fracture Instructions: Vertebral Compression Fracture (ED) Condition: Stable Pt referred to PMD for follow-up: No Allergies/Adverse Reactions: Allergies No Known Allergies Allergy (Verified 09/05/16 19:12) Home Medications: Ambulatory Orders Gabapentin 300 mg PO TID PRN #30 capsule 05/23/16 Diphenhydramine HCl [Benadryl] 25 mg PO PRN PRN 08/11/16 Disposition Discussed With: Patient
[2016-09-05] MEDS ORDERED: ZOFRAN 4 MG/2 ML IVP PRN (20:17)
[2016-09-05] MEDS ORDERED: ALBUTEROL 0.083% NEB NEB PRN (20:18)
[2016-09-05] MEDS: SODIUM CHLORIDE 1,000 ML IV SCH (20:31)
[2016-09-05 20:33] LABS: BASOPHILS # (AUTO) 0.1 K/uL (0-0.2); BASOPHILS % (AUTO) 0.8 % (0.0-3.0); HEMATOCRIT 37.8 % (42.0-52.0); HEMOGLOBIN 12.6 g/dl (14.0-18.0); IMMATURE GRANULOCYTE % (AUTO) 0.4 % (0.0-5.0); LYMPHOCYTES # (AUTO) 2.1 K/uL (0.60-3.4); LYMPHOCYTES % (AUTO) 18.8 (10.0-50.0); MEAN CORPUSCULAR HEMOGLOBIN 29.6 pg (27.0-31.0); MEAN CORPUSCULAR HGB CONC 33.3 (31.8-35.4); MEAN CORPUSCULAR VOLUME 88.7 fl (80.0-94.0); MONOCYTES # (AUTO) 1.3 K/uL (0.4-2.0); MONOCYTES % (AUTO) 11.2 (0-10); NEUTROPHILS # (AUTO) 7.7 K/ul (2.0-6.9); NEUTROPHILS % (AUTO) 68.8; PLATELET COUNT 295 10^3/uL (140-440); RED BLOOD COUNT 4.26 10^6/ul (4.70-6.10); WHITE BLOOD COUNT 11.16 K/ul (4.2-10.2)
[2016-09-05 20:53] LABS: ALBUMIN 3.6 g/dL (3.4-5.0); ALBUMIN/GLOBULIN RATIO 1.09; ANION GAP 14.7; BILIRUBIN,TOTAL 0.4 mg/dL (0.00-1.20); BUN/CREATININE RATIO 21.68; CALCIUM 8.3 mg/dL (8.2-10.2); CREATININE 0.83 mg/dL (0.60-1.10); POTASSIUM 3.7 mmol/L (3.5-5.1); TOTAL PROTEIN 6.9 g/dL (5.8-8.1)
--- NOTE | 2016-09-05 20:57 | DI ---
EXAM: PA and lateral views of the chest HISTORY: Back pain COMPARISON: 05/03/2016 FINDINGS: The lungs are hyperexpanded. A right upper lung zone calcified granuloma is present. No focal consol idation, pleural effusion or pneumothorax is identified. The cardiomediastinal silhouette is within normal limits. Calcified mediastinal lymph nodes are see n. Remote right rib fractures are seen. IMPRESSION: No acute cardiopulmonary findings. Evidence of prior granulomatous infection. Hyperexpanded lungs suggesting chronic obstructive pulmonary disease. Please see spine CT report for spinal findings.
[2016-09-05] MEDS: MORPHINE 2 MG/ML SYRINGE IVP PRN (21:08)
[2016-09-05] MEDS: NICODERM 21 MG TD SCH (21:14)
[2016-09-05 21:48] VITALS: BMI 19.0
[2016-09-05 23:21] LABS: BILIRUBIN,URINE Negative (NEGATIVE); KETONES,URINE Trace (NEGATIVE); LEUKOCYTE ESTERASE ,URINE Negative (NEGATIVE); NITRITE,URINE Negative (NEGATIVE); PH,URINE 5.5 (5-9); PROTEIN,URINE Negative (NEGATIVE); URINE, BLOOD Negative (NEGATIVE)
[2016-09-05 23:22] LABS: ADD URINE MICROSCOPIC NO
[2016-09-05] MEDS: PERCOCET 7.5-325 PO PRN (23:42)
[2016-09-05] MEDS: NEURONTIN PO PRN (23:42)
[2016-09-06 04:41] LABS: BASOPHILS # (AUTO) 0.1 K/uL (0-0.2); BASOPHILS % (AUTO) 1.5 % (0.0-3.0); HEMATOCRIT 34.3 % (42.0-52.0); HEMOGLOBIN 11.2 g/dl (14.0-18.0); IMMATURE GRANULOCYTE % (AUTO) 0.6 % (0.0-5.0); LYMPHOCYTES # (AUTO) 1.7 K/uL (0.60-3.4); LYMPHOCYTES % (AUTO) 24.7 (10.0-50.0); MEAN CORPUSCULAR HEMOGLOBIN 28.9 pg (27.0-31.0); MEAN CORPUSCULAR HGB CONC 32.7 (31.8-35.4); MEAN CORPUSCULAR VOLUME 88.6 fl (80.0-94.0); MONOCYTES # (AUTO) 1.1 K/uL (0.4-2.0); MONOCYTES % (AUTO) 15.6 (0-10); NEUTROPHILS # (AUTO) 3.9 K/ul (2.0-6.9); NEUTROPHILS % (AUTO) 57.6; PLATELET COUNT 241 10^3/uL (140-440); RED BLOOD COUNT 3.87 10^6/ul (4.70-6.10); WHITE BLOOD COUNT 6.84 K/ul (4.2-10.2)
[2016-09-06] MEDS: MORPHINE 2 MG/ML SYRINGE IVP PRN ×5 (04:45→22:57)
[2016-09-06 04:57] LABS: ALBUMIN 3.4 g/dL (3.4-5.0); ALBUMIN/GLOBULIN RATIO 1.17; ANION GAP 13.6; BILIRUBIN,TOTAL 0.67 mg/dL (0.00-1.20); CREATININE 0.8 mg/dL (0.60-1.10); POTASSIUM 3.6 mmol/L (3.5-5.1); TOTAL PROTEIN 6.3 g/dL (5.8-8.1)
[2016-09-06] MEDS: PRILOSEC PO SCH ×2 (05:31→18:15)
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
[2016-09-06] MEDS ORDERED: VITAMIN D PO SCH (09:00)
--- NOTE | 2016-09-06 09:01 | PN ---
DATE OF VISIT: 09/06/16 The patient is in bed asleep. I did call his name and he did wake up and movement did cause pain. He still has the pain with movement, which I expect would be there at least for the next several days. VITAL SIGNS: At 5:00 a.m. showed a temperature of 96.3, pulse 70, blood pressure 139/76, respiratory rate 20, oxygen saturation 96 at room air. HEART: Normal sinus rhythm. ABDOMEN: Soft. It is painful for him to sit up and so I did not listen to his lungs posteriorly. CBC showed normal WBC 6,840 from 11,160. Hemoglobin is down to 11.2, RDW 22.1. MCV and MCH towards the lower end of normal. CMP normal. No results of the 25 Hydroxy Vitamin D that was ordered. PLAN: We will start him on Vitamin D 50,000 weekly. We will discontinue if his Vitamin D level is high. This patient is advised to stop smoking, since smoking does not help with the osteoporosis. He is given 50,000 units weekly of Vitamin D3 PL. MTDD
[2016-09-06] MEDS: HYDROCHLOROTHIAZIDE PO SCH (09:14)
[2016-09-06] MEDS: ZESTRIL PO SCH (09:14)
[2016-09-06] MEDS: LOVENOX SUBCUT SCH (09:15)
[2016-09-06] MEDS: PERCOCET 7.5-325 PO PRN ×4 (09:29→22:57)
[2016-09-06] MEDS: NEURONTIN PO PRN ×4 (09:29→22:57)
[2016-09-06] MEDS: NICODERM 21 MG TD SCH (11:38)
[2016-09-06] MEDS ORDERED: DRISDOL ONE (11:39)
[2016-09-06] MEDS: SODIUM CHLORIDE 1,000 ML IV SCH (21:11)
[2016-09-07] MEDS: MORPHINE 2 MG/ML SYRINGE IVP PRN ×5 (05:01→23:41)
[2016-09-07 05:07] LABS: BASOPHILS # (AUTO) 0.1 K/uL (0-0.2); BASOPHILS % (AUTO) 1.4 % (0.0-3.0); HEMATOCRIT 37.2 % (42.0-52.0); IMMATURE GRANULOCYTE % (AUTO) 0.3 % (0.0-5.0); LYMPHOCYTES # (AUTO) 1.6 K/uL (0.60-3.4); LYMPHOCYTES % (AUTO) 24.2 (10.0-50.0); MEAN CORPUSCULAR HEMOGLOBIN 29.1 pg (27.0-31.0); MEAN CORPUSCULAR HGB CONC 32.3 (31.8-35.4); MEAN CORPUSCULAR VOLUME 90.3 fl (80.0-94.0); NEUTROPHILS # (AUTO) 3.9 K/ul (2.0-6.9); NEUTROPHILS % (AUTO) 59.1; PLATELET COUNT 268 10^3/uL (140-440); RED BLOOD COUNT 4.12 10^6/ul (4.70-6.10); WHITE BLOOD COUNT 6.61 K/ul (4.2-10.2)
[2016-09-07 05:35] LABS: ALBUMIN 3.3 g/dL (3.4-5.0); ALBUMIN/GLOBULIN RATIO 1.06; ANION GAP 13.1; BILIRUBIN,TOTAL 0.49 mg/dL (0.00-1.20); BUN/CREATININE RATIO 18.82; CREATININE 0.85 mg/dL (0.60-1.10); POTASSIUM 4.1 mmol/L (3.5-5.1); TOTAL PROTEIN 6.4 g/dL (5.8-8.1)
[2016-09-07] MEDS: PRILOSEC PO SCH ×2 (05:39→17:32)
[2016-09-07] MEDS: PERCOCET 7.5-325 PO PRN ×2 (07:06→21:22)
[2016-09-07] MEDS: HYDROCHLOROTHIAZIDE PO SCH (09:32)
[2016-09-07] MEDS: LOVENOX SUBCUT SCH (09:33)
[2016-09-07] MEDS: NICODERM 21 MG TD SCH (09:34)
[2016-09-07] MEDS: ZESTRIL PO SCH (09:34)
[2016-09-07] MEDS: NEURONTIN PO PRN (09:42)
--- NOTE | 2016-09-07 12:51 | RS.PTINEVL ---
Subjective - Patient information Date of Evaluation: 09/07/16 Date of Arrival on Unit: 09/05/16 Usual Living Arrangement: Alone Home Environment: Apartment, Level/No stairs Surgical History Comments:: Right DELFINO 2-3 months ago Subjective Information/ Patient Comments:: Patient reports he has had a history of back pain and spinal fractures due to having Osteoporosis. States "I can get in and out of bed". Reports he has help at home 5 days a week for homemaker services. - Level of function Prior to this admission, the patient could do the following:: Independent Selfcare, Independent ADL's, Independent Ambulation Current Equipment Used at Home: rolling walker, nebulizer, hospital bed, wheelchair Interventions - Objective Patient Orientation: Person, Place, Time, Situation Current Interventions: IV's Range of Motion - ROM Right Upper Extremity AROM: WFL's Left Upper Extremity AROM: WFL's Right Lower Extremity AROM: WFL's Left Lower Extremity AROM: WFL's Muscle Strength - Muscle Strength Comments:: Muscle strength throughout bilateral LE's is at least 4-/5. Balance - Sitting Balance and Reactions Static Sitting Balance: Good Dynamic Sitting Balance: Good - Standing Balance and Reactions Static Standing Balance: Good (-) Dynamic Standing Balance: Good (-) Functional Mobility - Bed Mobility Scooting: Independent Supine to Sit: Independent Sit to Supine: Independent - Transfers Sit to Stand: Independent, Supervision Stand to Sit: Independent, Supervision Stand Pivot Transfers: Independent, Supervision - Safety Awareness Safety Awareness: Fair Ambulation - Ambulation Weight Bearing Status: FWB Assistive Device Used: Rollator Distance: 150 feet Assistance needed with Ambulation: Supervision Gait Deviations: Forward posture, Short stride Factors Affecting Ambulation: Breathing/O2 Saturation, Pain Treatment time - Time with patient Total treatment time: 17 (mins) Assessment - Assessment Further Therapy Indicated?: No Plan Duration of Treatment: One Time Treatment Anticipated Discharge Destination: Home
[2016-09-07] MEDS: SODIUM CHLORIDE 1,000 ML IV SCH (19:50)
[2016-09-08] MEDS: MORPHINE 2 MG/ML SYRINGE IVP PRN ×3 (05:14→13:35)
[2016-09-08] MEDS: PRILOSEC PO SCH ×2 (05:42→16:18)
[2016-09-08] MEDS: SODIUM CHLORIDE 1,000 ML IV SCH (07:30)
[2016-09-08] MEDS: HYDROCHLOROTHIAZIDE PO SCH (08:38)
[2016-09-08] MEDS: LOVENOX SUBCUT SCH (08:39)
[2016-09-08] MEDS: NICODERM 21 MG TD SCH (08:40)
[2016-09-08] MEDS: ZESTRIL PO SCH (09:24)
[2016-09-08] MEDS: NORCO 7.5-325 PO PRN (17:51)
[2016-09-08] MEDS: NEURONTIN PO PRN (22:07)
[2016-09-09] MEDS: NORCO 7.5-325 PO PRN ×4 (00:23→20:34)
[2016-09-09] MEDS: PRILOSEC PO SCH (06:29)
[2016-09-09] MEDS: HYDROCHLOROTHIAZIDE PO SCH (08:03)
[2016-09-09] MEDS: ZESTRIL PO SCH (08:04)
[2016-09-09] MEDS: LOVENOX SUBCUT SCH (08:04)
[2016-09-09] MEDS: NICODERM 21 MG TD SCH (08:05)
[2016-09-10] MEDS: NORCO 7.5-325 PO PRN ×3 (03:10→15:54)
[2016-09-10 04:20] LABS: BASOPHILS # (AUTO) 0.1 K/uL (0-0.2); BASOPHILS % (AUTO) 1.1 % (0.0-3.0); HEMATOCRIT 36.4 % (42.0-52.0); IMMATURE GRANULOCYTE % (AUTO) 0.2 % (0.0-5.0); LYMPHOCYTES # (AUTO) 2.1 K/uL (0.60-3.4); LYMPHOCYTES % (AUTO) 25.1 (10.0-50.0); MEAN CORPUSCULAR HEMOGLOBIN 29.8 pg (27.0-31.0); MEAN CORPUSCULAR VOLUME 90.3 fl (80.0-94.0); MONOCYTES # (AUTO) 1.1 K/uL (0.4-2.0); MONOCYTES % (AUTO) 13.6 (0-10); PLATELET COUNT 280 10^3/uL (140-440); RED BLOOD COUNT 4.03 10^6/ul (4.70-6.10); WHITE BLOOD COUNT 8.38 K/ul (4.2-10.2)
[2016-09-10 04:43] LABS: ALBUMIN 3.3 g/dL (3.4-5.0); ALBUMIN/GLOBULIN RATIO 1.03; ANION GAP 12.9; BILIRUBIN,TOTAL 0.46 mg/dL (0.00-1.20); BUN/CREATININE RATIO 31.32; CALCIUM 9.2 mg/dL (8.2-10.2); CREATININE 0.83 mg/dL (0.60-1.10); POTASSIUM 3.9 mmol/L (3.5-5.1); TOTAL PROTEIN 6.5 g/dL (5.8-8.1)
[2016-09-10] MEDS: ZESTRIL PO SCH (09:10)
[2016-09-10] MEDS: HYDROCHLOROTHIAZIDE PO SCH (09:11)
[2016-09-10] MEDS: LOVENOX SUBCUT SCH (09:12)
[2016-09-10] MEDS: NICODERM 21 MG TD SCH (09:13)
--- NOTE | 2016-09-10 11:49 | PN ---
DATE OF VISIT: 09/07/2016 The patient is still complaining of pain, but he doesn't look miserable or in pain while he is lying down. He does have pain with movement. The nurse had told me that he had taken a shower and after that he had walked around. He does tell me that the pain medication is not controlling the pain. I again emphasized and reemphasized to Mr. Amezquita that the pain that he experiences with changes of position will continue to be uncontrolled. That would subside over several days and weeks. He is medicated where he would be obtunded, but then he probably would not experience very much of the pain that he does when he is moving. I did indicate to him that he may have to go to the assisted to continue his rehabilitation. However, the patient refuses completely the idea of going to the assisted. He told me that he has people coming there five days a weeks, Saturday through Saturday and then his relatives are there during the weekend. I did tell him that is his choice. I also emphasized to him that we could not medicate him more since I would give the propensity to falling and probably a fracture. He does tell me that the medication doesn't effect him. He claims not to be drowsy with the medication. His vital signs at 5:49 p.m. on 09/07/2016 showed a temperature of 98.7, pulse 76, blood pressure 158/96, respiratory rate 18, oxygen saturation 96 at room air. The WBC is normal. His hemoglobin is more or less stable at 12. RDW is markedly elevated at 22.1, monocytes elevated at 15. No immature granulocytes. His CMP is normal. Vitamin D 25 Hydroxy level is still pending. I did advise him to stop smoking since smoking does not help with his osteoporosis. LUNGS: Still has rales at both bases, left more than right. No wheezing. HEART: Normal sinus rhythm. ABDOMEN: Unremarkable. CONDITION: Stable. The pain maybe less. This patient needs to stop smoking and probably not take any PPI's. He is given 50,000 units of Vitamin D3 every week. This should last for about 16 weeks and should have another Vitamin D 25 level. This patient is urged to follow with his primary care provider as scheduled. HUE
--- NOTE | 2016-09-10 11:58 | PN ---
DATE OF VISIT: 09/08/16 The patient is alert, oriented times four, not dyspneic, nor tachypneic. He is in a semi-recumbent position. He appears to be comfortable. He does have pain with changes of position, which is expected with a new compression fracture of L1. He has an old compression fracture of L2. He denies any chest pain today or any abdominal pain. VITALS SIGNS: At 5:48 p.m. on 09/08/2016 showed a temperature of 98.3, pulse 77 , blood pressure 138/82, respiratory rate 20, it varies between 14 to 20 and oxygen saturation 97 at room air. GENERAL APPEARANCE: Hasn't changed. LUNGS: Still has bilateral rales, which is a chronic problem probably from chronic smoking-chronic bronchitis. Again I advised him to stop smoking, but he indicated that he is not going to. He again told me that he will go home and will make arrangements. His appetite seemed to be good eating 100% of the meals. His medications-Morphine was discontinued, as well as Oxycodone. It is changed to Lortab 7.5/325 mg. His primary provider is at the clinic with Dr. Ferrer. I reiterated to him that he needs to follow on a regular basis. He needs to stop smoking and stop taking the PPI, which he is taking twice a day. I still do not have the results of the Vitamin D level. HUE
--- NOTE | 2016-09-10 14:17 | DI ---
EXAM: Three views of the lumbar spine. History: Follow-up compression fracture of L1. Comparison: Lumbar spine CT 09/05/2016 Findings / impression: The severe osteopenia limits evaluation for subtle fracture. Atheroscleroti c vascular calcifications. This is stable posterior fusion hardware. Kyphoplasty material again see n at L2. Probably no significant interval change in the L1 compression fracture. Spinal alignment i s stable. Probable sacral insufficiency fracture on the left.
[2016-09-10 18:52] VITALS: BP 107/56; TEMP 98.1
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
== END 2016-09-10 19:21 | disposition home or self-care (01) | DRG 544 ==
LOC: ED 19:06 → MEDSURG B 20:15
PROVIDERS: ADMIT General Practice; ATTEND General Practice
DX: M48.56XA Collapsed vertebra, not elsewhere classified, lumbar region, initial encounter for fracture (principal); M85.88 Other specified disorders of bone density and structure, other site; I10 Essential (primary) hypertension; R60.0 Localized edema; J44.9 Chronic obstructive pulmonary disease, unspecified; K21.9 Gastro-esophageal reflux disease without esophagitis; F10.21 Alcohol dependence, in remission; F17.210 Nicotine dependence, cigarettes, uncomplicated; Z87.39 Personal history of other diseases of the musculoskeletal system and connective tissue; Z98.1 Arthrodesis status; Z87.311 Personal history of (healed) other pathological fracture; Z79.899 Other long term (current) drug therapy
CPT/HCPCS: 36415; 80053; 81001; 82607; 82652; 84425; 85025; 93005; 93010; 99285

== ENCOUNTER 2016-10-24 13:16 | Emergency (ER) ==
[2016-10-24 13:23] VITALS: BP 152/72; TEMP 98.9; BMI 18.4
[2016-10-24] MEDS ORDERED: NORFLEX IM STA (13:37)
[2016-10-24] MEDS ORDERED: TORADOL IM STA (13:38)
--- NOTE | 2016-10-24 13:43 | ED.PDOC ---
General ED Provider: Dr. SPENCER GARIBAY Chief Complaint: Hip Pain/Injury Stated Complaint: R HIP PAIN CHRONIC Time Seen by Physician: 13:17 (SEEN WITH BETH BEE STUDENT ) Mode of Arrival: Walk-In Information Source: Patient Exam Limitations: No limitations Primary Care [facility] Nursing and Triage Documentation Reviewed and Agree: Yes Review of Systems - Review Of Systems Constitutional: Reports: No symptoms Eyes: Reports: No symptoms Ears, Nose, Mouth, Throat: Reports: No symptoms Respiratory: Reports: No symptoms Cardiac: Reports: No symptoms GI: Reports: No symptoms : Reports: No symptoms Musculoskeletal: Reports: Joint pain (RIGHT HIP) Skin: Reports: No symptoms Neurological: Reports: No symptoms Endocrine: Reports: No symptoms Hematologic/Lymphatic: Reports: No symptoms All Other Systems: Reviewed and Negative Past Medical History - Past Medical History Previously Healthy: No Endocrine: Reports: Dyslipidemia, Other (rheumatic fever as a child) Cardiovascular: Reports: Hypertension, A-Fib Respiratory: Reports: COPD Hematological: Reports: None, Other (as a child) Gastrointestinal: Reports: GERD, Liver Genitourinary: Reports: None Neuro/Psych: Reports: None, Migraine Musculoskeletal: Reports: Arthritis, Back Pain, Other Cancer: Reports: None Other Pertinent Past Medical History: BACK PROBLEMS, EMPHESEMA: 12/06/15 hospitalized 12/04/15. with back pain. - Surgical History General Surgical History: Reports: Cholecystectomy, Orthopedic (right hipSEVERAL PAST OPERATIONS ON RIGHT HIP IN THE PAST), Back Surgery - Family History Family History: Reports: None - Social History Smoking Status: Current every day smoker, Heavy tobacco smoker Hx Substance Use: No Alcohol Screening: None - Immunizations Influenza Vaccine within 12 Months: No Pneumococcal Vaccine up to Date: Yes (LAST YEAR) Physical Exam - Physical Exam Appearance: Well-appearing, No pain distress, Well-nourished Eyes: NEYDA, EOMI, Conjunctiva clear ENT: Ears normal, Nose normal, Oropharynx normal Respiratory: Airway patent, Breath sounds clear, Breath sounds equal, Respirations nonlabored Cardiovascular: RRR, Pulses normal, No rub, No murmur GI/: Soft, Nontender, No masses, Bowel sounds normal, No Organomegaly Musculoskeletal: Normal strength, ROM intact, No edema, No calf tenderness Skin: Warm, Dry, Normal color Neurological: Sensation intact, Motor intact, Reflexes intact, Cranial nerves intact, Alert, Oriented Psychiatric: Affect appropriate, Mood appropriate Critical Care Note - Critical Care Note Total Time (mins): 0 Course - Course Vital Signs: Temp Pulse Resp BP Pulse Ox 10/24/16 13:17 98.9 F 83 20 152/72 H 96 Departure - Departure Time of Disposition: 13:42 (SEEN WITH NURSING STAFF AT [facility] NO FALL OR INJURY ,PAIN LIMITED TO RIGHT HIP ATRAUMATIC ) Disposition: HOME SELF-CARE Discharge Problem: Hip pain Instructions: Arthralgia (ED), Hip Pain (ED) Condition: Good Pt referred to PMD for follow-up: Yes Additional Instructions: Please call your Family Physician as soon as possible to schedule a follow-up appointment. Prescriptions: Hydrocodone/Acetaminophen [[place] 10-325 Tablet] 1 each PO Q8HR #14 tablet Allergies/Adverse Reactions: Allergies No Known Allergies Allergy (Verified 10/24/16 13:27) Home Medications: Ambulatory Orders Gabapentin 300 mg PO TID PRN #30 capsule 05/23/16 Diphenhydramine HCl [Benadryl] 25 mg PO PRN PRN 08/11/16 Cholecalciferol (Vitamin D3) [Vitamin D] 50,000 unit PO WEEKLY #12 capsule 09/10 Hydrocodone/Acetaminophen [[place] 10-325 Tablet] 1 each PO Q8HR #14 tablet
== END 2016-10-24 13:56 | disposition home or self-care (01) ==
LOC: ED 13:16
DX: M25.551 Pain in right hip (principal); F17.210 Nicotine dependence, cigarettes, uncomplicated
CPT/HCPCS: 99282

== ENCOUNTER 2016-12-17 13:09 | Outpatient (CLI) ==
[2016-12-17 13:34] LABS: ALBUMIN 4.2 g/dL (3.4-5.0); ALBUMIN/GLOBULIN RATIO 1.17; ANION GAP 15.5; BILIRUBIN,TOTAL 0.4 mg/dL (0.00-1.20); BUN/CREATININE RATIO 29.7; CALCIUM 10.1 mg/dL (8.2-10.2); CHOL/HDL RATIO 3.4 (4.5-6.4); CREATININE 1.01 mg/dL (0.60-1.10); POTASSIUM 4.5 mmol/L (3.5-5.1); TOTAL PROTEIN 7.8 g/dL (5.8-8.1)
== END 2016-12-17 13:10 | disposition home or self-care (01) ==
LOC: LAB 13:09
PROVIDERS: ATTEND Nurse Practitioner Family
DX: R73.9 Hyperglycemia, unspecified (principal); I10 Essential (primary) hypertension
CPT/HCPCS: 36415; 80053; 80061; 83036

== ENCOUNTER 2017-03-28 12:22 | Emergency (ER) ==
[2017-03-28 12:38] VITALS: BP 91/67; TEMP 98.2; BMI 19.9
[2017-03-28] MEDS ORDERED: DUONEB NEB STA (12:43)
[2017-03-28 13:01] LABS: ABG BASE EXCESS -4 (-2.0-2.0); ABG HCO3 21.2 (22.0-26.0); ABG PCO2 34.6 mmHg (35-45); ABG PH 7.394 (7.35-7.45); ABG TCO2 22 (22.0-28.0)
--- NOTE | 2017-03-28 13:17 | ED.PDOC ---
General ED Provider: Dr. USMAN HERNANDEZ JR Chief Complaint: Shortness of Air Stated Complaint: feeling bad SOA x 2 weeks increasing SOA 2 days smoke 1 pack of cigarettes daily for over 50 years using albuterol nebulizer 5-7 times a day past 2 days. pain with cough.[End]98.2 124 24 94% 91/67 12/30[ End ] Time Seen by Physician: 13:17 Mode of Arrival: Walk-In Information Source: Patient Exam Limitations: No limitations Primary Care Provider: [facility] Triage Documentation Reviewed and Agree: No Review of Systems - Review Of Systems Constitutional: Reports: Malaise, Weakness Eyes: Reports: No symptoms Ears, Nose, Mouth, Throat: Reports: No symptoms Respiratory: Reports: Short of air Cardiac: Reports: Chest pain (pleuritic nonfocal) GI: Reports: No symptoms : Reports: No symptoms Musculoskeletal: Reports: No symptoms Skin: Reports: No symptoms Neurological: Reports: No symptoms Endocrine: Reports: No symptoms Hematologic/Lymphatic: Reports: No symptoms All Other Systems: Other Past Medical History - Past Medical History Previously Healthy: No Endocrine: Reports: Dyslipidemia, Other (rheumatic fever as a child) Cardiovascular: Reports: Hypertension, A-Fib Respiratory: Reports: COPD Hematological: Reports: None, Other (rheumatic fever as a child) Gastrointestinal: Reports: GERD, Liver Genitourinary: Reports: None Neuro/Psych: Reports: None, Migraine Musculoskeletal: Reports: Arthritis (Osteoporosis), Back Pain, Other Cancer: Reports: None Other Pertinent Past Medical History: BACK PROBLEMS, EMPHESEMA: 12/06/15 hospitalized 12/04/15. with back pain. - Surgical History General Surgical History: Reports: Cholecystectomy, Orthopedic (SEVERAL PAST OPERATIONS ON RIGHT HIP Right knee pins/rods/plates placed, Rt hip replaced), Back Surgery (multiple lower back sx), Hernia Repair (Hernia (2017)) - Family History Family History: Reports: None - Social History Smoking Status: Current every day smoker, Heavy tobacco smoker Hx Substance Use: No Alcohol Screening: None - Immunizations Influenza Vaccine within 12 Months: No Pneumococcal Vaccine up to Date: Yes (LAST YEAR) Physical Exam - Physical Exam Appearance: Ill-appearing, Thin Ill-appearing: Moderate Pain Distress: Moderate Eyes: NEYDA, EOMI, Conjunctiva clear ENT: Ears normal, Nose normal, Oropharynx normal Neck: Supple Respiratory: Airway patent, Breath sounds diminished, Rhonchi, Wheezes Cardiovascular: RRR, Pulses normal, No rub, No murmur GI/: Soft, Nontender, No masses, Bowel sounds normal, No Organomegaly Musculoskeletal: Normal strength, ROM intact, No edema, No calf tenderness Skin: Warm, Dry, Normal color Neurological: Sensation intact, Motor intact, Reflexes intact, Cranial nerves intact, Alert, Oriented Psychiatric: Affect appropriate, Mood appropriate, Anxious Physician Notification - Case Discussed Physician Notified: dr conway Time of Notification: 14:20 (admit- calls back request transfer for cardiology) Physician Notified: dr Castelan Time of Notification: 16:43 (accept request solumedrol and antibiotics) Critical Care Note - Critical Care Note Total Time (mins): 20 Course - Course Hematology/Chemistry: 03/28/17 13:05 03/28/17 13:05 Orders, Labs, Meds: Lab Review 03/28/17 03/28/17 03/28/17 12:55 13:05 13:05 WBC 10.06 RBC 4.31 L Hgb 13.2 L Hct 38.8 L MCV 90.0 MCH 30.6 MCHC 34.0 RDW Coeff of Nino 14.0 Plt Count 219 Immature Gran % (Auto) 0.4 Neut % (Auto) 86.1 Lymph % (Auto) 7.4 L Jerome % (Auto) 5.3 Eos % (Auto) 0.0 Baso % (Auto) 0.8 Immature Gran # (Auto) 0.0 Neut # 8.7 H Lymph # 0.7 Jerome # 0.5 Eos # 0.0 Baso # 0.1 D-Dimer (Manual) Puncture Site R rad O2 Saturation 97.0 ABG pH 7.394 ABG pCO2 34.6 L ABG pO2 87.0 ABG HCO3 21.2 L ABG Total CO2 22 ABG Base Excess -4 L Braulio Test + FiO2 % 21.0 Sodium 133 L Potassium 4.1 Chloride 100 Carbon Dioxide 20 L Anion Gap 17.1 BUN 26 H Creatinine 0.86 Estimated GFR (MDRD) 87.00 BUN/Creatinine Ratio 30.23 Glucose 141 H Calcium 9.1 Total Bilirubin 0.36 AST 23 ALT 14 Alkaline Phosphatase 92 Total Creatine Kinase 195 CK-MB (CK-2) 8.1 H* CK-MB (CK-2) % 4.32716 Troponin I 0.4250 H B-Natriuretic Peptide Total Protein 7.5 Albumin 3.6 Globulin 3.9 Albumin/Globulin Ratio 0.92 03/28/17 03/28/17 13:05 13:05 WBC RBC Hgb Hct MCV MCH MCHC RDW Coeff of Nino Plt Count Immature Gran % (Auto) Neut % (Auto) Lymph % (Auto) [place] % (Auto) Eos % (Auto) Baso % (Auto) Immature Gran # (Auto) Neut # Lymph # Jerome # Eos # Baso # D-Dimer (Manual) 1957.45 Puncture Site O2 Saturation ABG pH ABG pCO2 ABG pO2 ABG HCO3 ABG Total CO2 ABG Base Excess Braulio Test FiO2 % Sodium Potassium Chloride Carbon Dioxide Anion Gap BUN Creatinine Estimated GFR (MDRD) BUN/Creatinine Ratio Glucose Calcium Total Bilirubin AST ALT Alkaline Phosphatase Total Creatine Kinase CK-MB (CK-2) CK-MB (CK-2) % Troponin I B-Natriuretic Peptide 79 Total Protein Albumin Globulin Albumin/Globulin Ratio Orders Category Date Time Status ABG DRAW REQUEST Stat CARDIO 03/28/17 12:41 Completed EKG-(ED ONLY) Stat CARDIO 03/28/17 12:41 Completed NEBULIZER TREATMENT Stat CARDIO 03/28/17 12:43 Completed NPO REMINDER: IMAGING ONCE CARE 03/28/17 14:21 Completed ED APPLY O2 .ONCE EMERGENCY 03/28/17 12:41 Active ED IV/MEDIPORT/POWERPORT .ONCE EMERGENCY 03/28/17 12:41 Active ABG Stat LAB 03/28/17 12:55 Completed B-TYPE NATRIURETIC PEPTIDE Stat LAB 03/28/17 13:05 Completed BLOOD CULTURE Stat LAB 03/28/17 13:20 Received CBC W/ AUTO DIFF Stat LAB 03/28/17 13:05 Completed COMPREHENSIVE METABOLIC PANEL Stat LAB 03/28/17 13:05 Completed CREATINE KINASE Stat LAB 03/28/17 13:05 Completed D-DIMER Stat LAB 03/28/17 13:05 Completed TROPONIN I Stat LAB 03/28/17 13:05 Completed 0.9 % Sodium Chloride [Saline Flush] MEDS 03/28/17 12:41 Active 1 syr IVF PRN PRN Ipratropium/Albuterol Neb [Duoneb] MEDS 03/28/17 12:43 Discontinued 1 vial NEB ONCE STA Levofloxacin/D5w [Levaquin] 750 mg MEDS 03/28/17 16:41 Active Premix 150 ml D5w 1 bag IV ONCE Methylprednisolone Sod Succ/Pf [Solu-Medrol 125 mg] MEDS 03/28/17 16:40 Discontinued 125 mg IVP ONCE STA Tramadol HCl [Ultram] MEDS 03/28/17 13:35 Discontinued 100 mg PO ONCE STA CHEST, 1V AP ONLY Stat RADS 03/28/17 12:[address] CHEST PE PROTOCOL Stat RADS 03/28/17 14:20 Completed Medications Generic Name Dose Route Start Last Admin Trade Name Freq PRN Reason Stop Dose Admin Levofloxacin/Dextrose 750 mg/ 150 mls @ 100 mls/hr 03/28/17 16:41 Dextrose IV 03/28/17 18:10 ONCE STA Sodium Chloride 1 syr 03/28/17 12:41 03/28/17 14:54 Saline Flush IVF 1 syr PRN PRN Administration To flush IV Discontinued Medications Generic Name Dose Route Start Last Admin Trade Name Freq PRN Reason Stop Dose Admin Albuterol/Ipratropium 1 vial 03/28/17 12:43 03/28/17 12:56 Duoneb NEB 03/28/17 12:44 1 vial ONCE STA Administration Methylprednisolone Sodium Succinate 125 mg 03/28/17 16:40 Solu-Medrol 125 Mg IVP 03/28/17 16:41 ONCE STA Tramadol HCl 100 mg 03/28/17 13:35 03/28/17 14:01 Ultram PO 03/28/17 13:36 100 mg ONCE STA Administration Vital Signs: Temp Pulse Resp BP Pulse Ox 03/28/17 12:27 98.2 F 124 H 24 91/67 94 L Departure - Departure Time of Disposition: 16:53 Disposition: [facility] Discharge Problem: COPD exacerbation, Cardiac enzymes elevated Condition: Fair Pt referred to PMD for follow-up: Yes Allergies/Adverse Reactions: Allergies No Known Allergies Allergy (Verified 03/28/17 12:36) Home Medications: Ambulatory Orders Gabapentin 300 mg PO TID PRN #30 capsule 05/23/16 Diphenhydramine HCl [Benadryl] 25 mg PO PRN PRN 08/11/16 Cholecalciferol (Vitamin D3) [Vitamin D] 50,000 unit PO WEEKLY #12 capsule 09/10 Hydrocodone/Acetaminophen [[place] 10-325 Tablet] 1 each PO Q8HR #14 tablet
[2017-03-28 13:23] LABS: BASOPHILS # (AUTO) 0.1 K/uL (0-0.2); BASOPHILS % (AUTO) 0.8 % (0.0-3.0); HEMATOCRIT 38.8 % (42.0-52.0); HEMOGLOBIN 13.2 g/dl (14.0-18.0); IMMATURE GRANULOCYTE % (AUTO) 0.4 % (0.0-5.0); LYMPHOCYTES # (AUTO) 0.7 K/uL (0.60-3.4); LYMPHOCYTES % (AUTO) 7.4 (10.0-50.0); MEAN CORPUSCULAR HEMOGLOBIN 30.6 pg (27.0-31.0); MONOCYTES # (AUTO) 0.5 K/uL (0.4-2.0); MONOCYTES % (AUTO) 5.3 (0-10); NEUTROPHILS # (AUTO) 8.7 K/ul (2.0-6.9); NEUTROPHILS % (AUTO) 86.1; PLATELET COUNT 219 10^3/uL (140-440); RED BLOOD COUNT 4.31 10^6/ul (4.70-6.10); WHITE BLOOD COUNT 10.06 K/ul (4.2-10.2)
[2017-03-28] MEDS ORDERED: ULTRAM PO STA (13:35)
--- NOTE | 2017-03-28 13:57 | DI ---
Exam: Single x-ray of the chest. Comparison: 09/05/2016. Reason for exam: Chest pain. FINDINGS: The lungs are hyperexpanded. Similar appearing nodular density in the right upper lobe no t significantly changed from the previous exam. There is blunting of the costophrenic angles with fl attening of the hemidiaphragms. The cardiac silhouette is not enlarged Impression: No acute cardiopulmonary process in the setting of chronic obstructive pulmonary disease.
[2017-03-28 14:11] LABS: ALBUMIN 3.6 g/dL (3.4-5.0); ALBUMIN/GLOBULIN RATIO 0.92; ANION GAP 17.1; BILIRUBIN,TOTAL 0.36 mg/dL (0.00-1.20); BUN/CREATININE RATIO 30.23; CALCIUM 9.1 mg/dL (8.2-10.2); CREATININE 0.86 mg/dL (0.60-1.10); POTASSIUM 4.1 mmol/L (3.5-5.1); TOTAL PROTEIN 7.5 g/dL (5.8-8.1); TROPONIN I 0.425 ng/ml (0.0000-0.4000)
[2017-03-28 14:13] LABS: CREATINE KINASE MB 8.1 ng/ml (0.0-3.6)
--- NOTE | 2017-03-28 15:44 | CT ---
EXAM: CTA CHEST (PE PROTOCOL) HISTORY: Shortness of breath, positive D-dimer TECHNIQUE: CTA chest with intravenous contrast. Multiplanar images were provided with 3-D reconstru ctions. 125 mL Omnipaque. COMPARISON: 04/25/2016 FINDINGS: No pulmonary arterial filling defect identified. There is moderate atherosclerotic disease of the ao rta. Aneurysmal caliber of the tubular ascending aorta at 4 cm. Heart size is normal. No pericardi al effusion. Lungs are hyperinflated. There is evidence of moderate pulmonary emphysema. Scattered scarring and ca lcifications. There is a focal region of pleural thickening in the posteriolateral right upper lung a t 0.56 cm which is stable. In the anterior right costophrenic angle, there is a stellate opacity sahra suring 0.9 cm which may represent residual scarring from previous pneumonia. Cannot exclude subtle a nterior right base pneumonia. There is no vascular congestion, central interstitial edema or pneumot horax. Bones reveal stable compression fractures of the thoracolumbar spine. There is a sliding hiatal ancelmo ia. Multiple splenic and liver calcifications consistent with old granulomatous disease. IMPRESSION: 1. No pulmonary arterial thromboembolism is identified. 2. Moderate to severe chronic obstructive pulmonary disease/pulmonary emphysema. Scattered fibrosis . Questionable subtle pneumonitis in the anterior right lung base. Stable areas of pleuroparenchymal thickening. 3. Stable aneurysmal caliber of the tubular ascending aorta at 4 cm. Moderate atherosclerotic diseas e. 4. Hiatal hernia. 5. Stable vertebral body compression fractures.
[2017-03-28] MEDS ORDERED: SOLU-MEDROL 125 MG IVP STA (16:40)
[2017-03-28] MEDS ORDERED: LEVAQUIN 750 MG in PREMIX 150 ML D5W 1 BAG IV STA (16:41)
[2017-03-28] MEDS ORDERED: TYLENOL PO STA (17:03)
[2017-03-28] MEDS ORDERED: NICODERM 21 MG TD STA (17:04)
[2017-03-28] MEDS ORDERED: LEVAQUIN PO STA (17:09)
== END 2017-03-28 17:17 | disposition short-term general hospital (02) ==
LOC: ED 12:22
DX: J44.1 Chronic obstructive pulmonary disease with (acute) exacerbation (principal); R74.8 Abnormal levels of other serum enzymes; R06.02 Shortness of breath; F17.210 Nicotine dependence, cigarettes, uncomplicated; E78.5 Hyperlipidemia, unspecified; I10 Essential (primary) hypertension
CPT/HCPCS: 36415; 80053; 82550; 82553; 82803; 83880; 84484; 85025; 85379; 87040; 93005; 93010; 94640; 96375; 99285

== ENCOUNTER 2017-04-20 19:18 | Emergency (ER) ==
[2017-04-20 19:30] VITALS: BMI 19.2
[2017-04-20] MEDS ORDERED: ZOFRAN 4 MG/2 ML IM STA (19:45)
[2017-04-20] MEDS ORDERED: DEMEROL 25 MG/ML VIAL IM STA (19:45)
[2017-04-20] MEDS ORDERED: GI COCKTAIL PO STA (19:45)
--- NOTE | 2017-04-20 19:49 | ED.PDOC ---
General ED Provider: Dr. KATELYN MORA Chief Complaint: Abdominal Pain Stated Complaint: Been hurting in the left upper belly, vomiting, nausea. Time Seen by Physician: 19:46 Mode of Arrival: Walk-In Information Source: Patient Primary Care Provider: KATELYN MORA-[facility] Nursing and Triage Documentation Reviewed and Agree: Yes Reviewed sepsis parameters & appropriate labs ordered?: Yes System Inflammatory Response Syndrome: Not Applicable Sepsis Protocol: For patient's 13 years and over: Temp is 96.8 and below OR 101 and greater Pulse >90 BPM Resp >20/minute Acutely Altered Mental Status Are patient's symptoms suggestive of a new infection, such as: -Pneumonia -Skin, Soft Tissue -Endocarditis -UTI -Bone, Joint Infection -Implantable Device -Acute Abdominal Infection -Wound Infection -Meningitis -Blood Stream Catheter Infection -Unknown GI Complaint Exam - Abdominal Pain Complaint/Exam Onset: Gradual Symptoms Are: Still present Timing: Constant Initial Severity: Moderate Current Severity: Severe Location of Pain: LUQ Radiates To: Reports: Back Character: Reports: Aching, Throbbing Aggravating: Reports: Food Alleviating: Reports: None Associated Signs and Symptoms: Reports: Nausea, Vomiting. Denies: Diaphoresis, Fever, Cough, Chest pain, Dizziness, Back pain, Constipation, Blood in stool, Dysuria, Urinary frequency, Decreased urine output, Decreased appetite, Discharge, Diarrhea, Decreased activity Related History: Reports: Similar episode AAA Risk Factors: Reports: None Cardiac Risk Factors: Reports: None Testicular Torsion Risk Factors: Reports: None Surgical Obstruction Risk Factors: Reports: None Related Surgical History: Reports: None Abdominal Findings: Absent: Pulsatile mass, Abdominal distention, Unequal femoral pulses Differential Diagnoses: Gastroenteritis, PUD Review of Systems - Review Of Systems Constitutional: Reports: Malaise Eyes: Reports: No symptoms Ears, Nose, Mouth, Throat: Reports: No symptoms Respiratory: Reports: No symptoms Cardiac: Reports: No symptoms GI: Reports: Abdominal pain, Nausea, Vomiting : Reports: No symptoms Musculoskeletal: Reports: No symptoms Skin: Reports: No symptoms Neurological: Reports: No symptoms Endocrine: Reports: No symptoms Hematologic/Lymphatic: Reports: No symptoms All Other Systems: Reviewed and Negative Past Medical History - Past Medical History Previously Healthy: No Endocrine: Reports: Dyslipidemia, Other (rheumatic fever as a child) Cardiovascular: Reports: Hypertension, A-Fib Respiratory: Reports: COPD Hematological: Reports: None, Other (rheumatic fever as a child) Gastrointestinal: Reports: GERD, Liver Genitourinary: Reports: None Neuro/Psych: Reports: None, Migraine Musculoskeletal: Reports: Arthritis (Osteoporosis), Back Pain, Other Cancer: Reports: None Other Pertinent Past Medical History: BACK PROBLEMS, EMPHESEMA: 12/06/15 hospitalized 12/04/15. with back pain. - Surgical History General Surgical History: Reports: Cholecystectomy, Orthopedic (SEVERAL PAST OPERATIONS ON RIGHT HIP Right knee pins/rods/plates placed, Rt hip replaced), Back Surgery (multiple lower back sx), Hernia Repair (Hernia (2017)) - Family History Family History: Reports: None - Social History Smoking Status: Current every day smoker, Heavy tobacco smoker Smoking Cessation Counseling Time: > 3 min - 10 min Hx Substance Use: No Alcohol Screening: None - Immunizations Influenza Vaccine within 12 Months: No Pneumococcal Vaccine up to Date: Yes (LAST YEAR) Physical Exam - Physical Exam Appearance: Ill-appearing, Thin Pain Distress: Moderate Eyes: EOMI, Conjunctiva clear ENT: Ears normal, Nose normal, Oropharynx normal Respiratory: Airway patent, Breath sounds clear, Breath sounds equal, Respirations nonlabored Cardiovascular: RRR, Pulses normal, No rub, No murmur GI/: Tender Musculoskeletal: Normal strength, ROM intact, No edema, No calf tenderness Skin: Warm, Dry, Normal color Neurological: Sensation intact, Motor intact, Reflexes intact, Cranial nerves intact, Alert, Oriented Psychiatric: Affect appropriate, Mood appropriate Interpretation - Radiology Interpretation Radiology Interpretation By: Radiologist Radiology Results: Negative Exam Interpreted: CT Scan Critical Care Note - Critical Care Note Total Time (mins): 20 Course - Course Hematology/Chemistry: 04/20/17 19:59 04/20/17 19:59 Orders, Labs, Meds: Lab Review 04/20/17 04/20/17 19:59 19:59 WBC 10.46 H RBC 3.98 L Hgb 12.4 L Hct 37.4 L MCV 94.0 MCH 31.2 H MCHC 33.2 RDW Coeff of Nino 15.8 H Plt Count 267 Immature Gran % (Auto) 0.3 Neut % (Auto) 60.9 Lymph % (Auto) 31.5 [place] % (Auto) 6.5 Eos % (Auto) 0.0 Baso % (Auto) 0.8 Immature Gran # (Auto) 0.0 Neut # 6.4 Lymph # 3.3 [place] # 0.7 Eos # 0.0 Baso # 0.1 Sodium 136 Potassium 4.0 Chloride 102 Carbon Dioxide 24 Anion Gap 14.0 BUN 25 H Creatinine 0.87 Estimated GFR (MDRD) 86.00 BUN/Creatinine Ratio 28.73 Glucose 128 H Calcium 9.0 Total Bilirubin 0.4 AST 14 L ALT 14 Alkaline Phosphatase 75 Total Protein 6.9 Albumin 3.6 Globulin 3.3 Albumin/Globulin Ratio 1.09 Amylase 51 Lipase 17 Orders Category Date Time Status AMYLASE Stat LAB 04/20/17 19:59 Completed CBC W/ AUTO DIFF Stat LAB 04/20/17 19:59 Completed COMPREHENSIVE METABOLIC PANEL Stat LAB 04/20/17 19:59 Completed LIPASE Stat LAB 04/20/17 19:59 Completed Mag-Al Plus//Lidocaine [Gi Cocktail] MEDS 04/20/17 19:45 Discontinued 30 ml PO ONCE STA Meperidine HCl/Pf [Demerol 25 mg/ml Vial] MEDS 04/20/17 19:45 Discontinued 25 mg IM ONCE STA Ondansetron HCl/Pf [Zofran 4 mg/2 ml] MEDS 04/20/17 19:45 Discontinued 4 mg IM ONCE STA CT ABDOMEN/PELVIS WO CONTRAST Stat RADS 04/20/17 19:45 Completed Medications Discontinued Medications Generic Name Dose Route Start Last Admin Trade Name Freq PRN Reason Stop Dose Admin Al Hydroxide/Mg Hydroxide 30 ml 04/20/17 19:45 04/20/17 20:46 Gi Cocktail PO 04/20/17 19:46 30 ml ONCE STA Administration Meperidine HCl 25 mg 04/20/17 19:45 04/20/17 20:47 Demerol 25 Mg/Ml Vial IM 04/20/17 19:46 25 mg ONCE STA Administration Ondansetron HCl 4 mg 04/20/17 19:45 04/20/17 20:47 Zofran 4 Mg/2 Ml IM 04/20/17 19:46 4 mg ONCE STA Administration Vital Signs: Temp Pulse Resp BP Pulse Ox 04/20/17 19:21 98.3 F 95 H 24 136/73 96 Departure - Departure Time of Disposition: 20:57 Disposition: HOME SELF-CARE Discharge Problem: Hiatal hernia Instructions: Gastroesophageal Reflux Disease (ED) Condition: Good Pt referred to PMD for follow-up: Yes Additional Instructions: SOFT DIET INCREASE HYDRATION F/U AT [facility] Prescriptions: Pantoprazole Sodium [Protonix] 40 mg PO BIDAC #60 tablet. Sucralfate Susp [Carafate] 1 gm PO ACHS #1 bottle Allergies/Adverse Reactions: Allergies No Known Allergies Allergy (Verified 04/20/17 19:37) Home Medications: Ambulatory Orders Aspirin 81 mg PO DAILY tab-cap 04/02/17 Metoprolol Kaur/Hydrochlorothiaz [Metoprolol Er-Hctz 25-12.5 Mg] 1 each PO BID tab-cap 04/02/17 Albuterol Sulfate 0.083% Neb [Albuterol 0.083% Neb] 1 vial NEB RTQ4H 04/20/17 Atorvastatin Calcium [Lipitor] 20 mg PO BEDTIME 04/20/17 Isosorbide Mononitrate [Isosorbide Mononitrate ER] 30 mg PO DAILY 04/20/17 Lisinopril/Hydrochlorothiazide [Lisinopril-Hctz 10-12.5 mg Tab] 1 each PO DAILY 04/20/17 Mometasone/Formoterol [Dulera 100 Mcg/5 Mcg Inhaler] 2 inh IH BID 04/20/17 Mometasone/Formoterol [Dulera 100 Mcg/5 Mcg Inhaler] 13 gm IH 04/20/17 Nitroglycerin 0.4 mg SL DIRECTED PRN 04/20/17 Omeprazole [Prilosec] 20 mg PO BIDAC 04/20/17 Pantoprazole Sodium [Protonix] 40 mg PO BIDAC #60 tablet. 04/20/17 Sucralfate Susp [Carafate] 1 gm PO ACHS #1 bottle 04/20/17 Disposition Discussed With: Patient
--- NOTE | 2017-04-20 20:34 | CT ---
EXAM: CT abdomen pelvis without contrast TECHNIQUE: Helical axial CT of the abdomen and pelvis was performed without contrast with coronal an d sagittal reconstructions. COMPARISON: CT abdomen pelvis from 07/20/2016 HISTORY: Left upper quadrant pain FINDINGS: There is no acute abnormality. Specifically there is no mesenteric inflammation, free air, free fluid or bowel wall thickening or edema or pathologic lymph nodes or obstruction or ileus. The liver, spleen, pancreas,and adrenal glands show no acute abnormality. There is very extensive old granulomatous disease in the liver and spleen. Lung bases are well-aerated. There is extremely advan ruth emphysematous change in the lung bases. There is a hiatal hernia. There has been prior cholecyste ctomy. There is no biliary or pancreatic ductal dilatation. There are no suspicious renal masses or large cysts and no hydronephrosis. There are no kidney stones . Both ureters demonstrate normal course and caliber. There is no filling defect in the urinary blad cori. There is a left inguinal hernia which contains several loops of bowel. There is no definite inc arceration or obstruction. The appendix is unremarkable There are no significant colonic diverticula. There is extremely advan ruth calcific atherosclerosis. There are no acute osseous abnormalities. There are extensive chronic p ostoperative changes in the lumbar spine and chronic compression fractures. There has been prior tot al hip arthroplasty on the right. There are old right-sided rib fractures which are healed. IMPRESSION: 1. Left inguinal hernia with no evidence for incarceration or obstruction. 2. Stable appearing hiatal hernia. 3. No definite acute abnormality in the abdomen or pelvis. 4. Multiple other miscellaneous findings as above.
[2017-04-20 21:38] VITALS: BP 120/80; TEMP 99.4
== END 2017-04-20 21:29 | disposition home or self-care (01) ==
LOC: ED 19:18
DX: K44.9 Diaphragmatic hernia without obstruction or gangrene (principal); E78.5 Hyperlipidemia, unspecified; I10 Essential (primary) hypertension; K21.9 Gastro-esophageal reflux disease without esophagitis; F17.210 Nicotine dependence, cigarettes, uncomplicated; Z79.899 Other long term (current) drug therapy
CPT/HCPCS: 36415; 80053; 82150; 83690; 85025; 96372; 99283

== ENCOUNTER 2017-04-23 14:31 | Emergency (ER) | payer OTHER ==
[2017-04-23 14:44] VITALS: BP 181/96; TEMP 96.8; BMI 20.7
[2017-04-23] MEDS ORDERED: ZOFRAN 4 MG/2 ML IM STA (15:00)
[2017-04-23] MEDS ORDERED: MORPHINE 2 MG/ML SYRINGE IM STA (15:00)
--- NOTE | 2017-04-23 15:53 | CT ---
EXAM: CT Abdomen without contrast. CT Pelvis without contrast. HISTORY: Left lower abdominal pain. COMPARISON: 04/20/2017. TECHNIQUE: Multiple axial images of the abdomen and pelvis were obtained without intravenous contras t. Images were reformatted in the coronal plane. FINDINGS: Please note that evaluation of the abdominal and pelvic structures is limited due to lack of intravenous contrast. The lung bases are clear. L4-S1 posterior fusion changes noted. Kyphoplasty changes seen at L2. Co mpression deformities seen at L3, L1 and T12. Right hip arthroplasty changes noted. Gallbladder is absent. The liver, pancreas, spleen, and left adrenal gland are unremarkable. Benign right adrenal nodule again seen. No calcified renal stones or hydronephrosis detected. Moderate hiatal hernia noted. A left inguinal hernia contains a few loops of small bowel. There is no evidence for associated inflammation or bowel wall thickening. There is no evidence for bowel obs truction. The appendix is normal. Urinary bladder is unremarkable. No free fluid or free air ident ified. Atherosclerotic calcifications are present. Since the prior study, there has been no significant interval change. IMPRESSION: Stable left inguinal hernia containing small bowel. No evidence for bowel obstruction or acute infla mmation.
--- NOTE | 2017-04-23 16:43 | ED.PDOC ---
General ED Provider: Dr. SPENCER GARIBAY Chief Complaint: Abdominal Pain Stated Complaint: ABDOMINAL PAIN Time Seen by Physician: 14:34 Mode of Arrival: Walk-In Information Source: Patient Exam Limitations: No limitations [facility] and Triage Documentation Reviewed and Agree: Yes Reviewed sepsis parameters & appropriate labs ordered?: Yes (SEEN AT ALL TIMES WITH TI VICK ) System Inflammatory Response Syndrome: Not Applicable Sepsis Protocol: For patient's 13 years and over: Temp is 96.8 and below OR 101 and greater Pulse >90 BPM Resp >20/minute Acutely Altered Mental Status Are patient's symptoms suggestive of a new infection, such as: -Pneumonia -Skin, Soft Tissue -Endocarditis -UTI -Bone, Joint Infection -Implantable Device -Acute Abdominal Infection -Wound Infection -Meningitis -Blood Stream Catheter Infection -Unknown System Inflammatory Response Syndrome: Not Applicable GI Complaint Exam - Abdominal Pain Complaint/Exam Onset: Gradual (THIS IS A CHRONIC PAIN WORSE TODAY) Duration: CHRONIC PAIN HISTORY OF HERNIA Symptoms Are: Still present Timing: Constant Initial Severity: Moderate Current Severity: Moderate Location of Pain: RLQ, LLQ Radiates To: Reports: Inguinal Character: Reports: Cramping Aggravating: Reports: None Alleviating: Reports: None Associated Signs and Symptoms: Denies: Diaphoresis, Fever, Cough, Chest pain, Dizziness, Back pain, Constipation, Blood in stool, Dysuria, Urinary frequency, Decreased urine output, Decreased appetite, Discharge, Nausea, Vomiting, Diarrhea, Decreased activity Related History: Reports: Similar episode Testicular Torsion Risk Factors: Reports: None Surgical Obstruction Risk Factors: Reports: None Related Surgical History: Reports: None Abdominal Findings: Present: None Differential Diagnoses: Bowel Obstruction, Constipation, Pancreatitis, UTI Review of Systems - Review Of Systems Constitutional: Reports: No symptoms Eyes: Reports: No symptoms Ears, Nose, Mouth, Throat: Reports: No symptoms Respiratory: Reports: No symptoms Cardiac: Reports: No symptoms GI: Reports: Abdominal pain : Reports: No symptoms Musculoskeletal: Reports: No symptoms Skin: Reports: No symptoms Neurological: Reports: No symptoms Endocrine: Reports: No symptoms Hematologic/Lymphatic: Reports: No symptoms All Other Systems: Reviewed and Negative Past Medical History - Past Medical History Previously Healthy: No Endocrine: Reports: Dyslipidemia, Other (rheumatic fever as a child) Cardiovascular: Reports: Hypertension, A-Fib Respiratory: Reports: COPD Hematological: Reports: None, Other (rheumatic fever as a child) Gastrointestinal: Reports: GERD, Liver Genitourinary: Reports: None Neuro/Psych: Reports: None, Migraine Musculoskeletal: Reports: Arthritis (Osteoporosis), Back Pain, Other Cancer: Reports: None Other Pertinent Past Medical History: BACK PROBLEMS, EMPHESEMA: 12/06/15 hospitalized 12/04/15. with back pain. - Surgical History General Surgical History: Reports: Cholecystectomy, Orthopedic (SEVERAL PAST OPERATIONS ON RIGHT HIP Right knee pins/rods/plates placed, Rt hip replaced), Back Surgery (multiple lower back sx), Hernia Repair (Hernia (2017)) - Family History Family History: Reports: None - Social History Smoking Status: Current every day smoker, Heavy tobacco smoker Hx Substance Use: No Alcohol Screening: None - Immunizations Influenza Vaccine within 12 Months: No Pneumococcal Vaccine up to Date: Yes (LAST YEAR) Physical Exam - Physical Exam Appearance: Well-appearing, No pain distress, Well-nourished Eyes: NEYDA, EOMI, Conjunctiva clear ENT: Ears normal, Nose normal, Oropharynx normal Respiratory: Airway patent, Breath sounds clear, Breath sounds equal, Respirations nonlabored Cardiovascular: RRR, Pulses normal, No rub, No murmur GI/: Soft, Nontender, No masses, Bowel sounds normal, No Organomegaly Musculoskeletal: Normal strength, ROM intact, No edema, No calf tenderness Skin: Warm, Dry, Normal color Neurological: Sensation intact, Motor intact, Reflexes intact, Cranial nerves intact, Alert, Oriented Psychiatric: Affect appropriate, Mood appropriate Interpretation - Radiology Interpretation Radiology Interpretation By: Radiologist Radiology Results: No acute changes Critical Care Note - Critical Care Note Total Time (mins): 0 Course - Course Hematology/Chemistry: 04/23/17 15:05 04/23/17 15:05 Orders, Labs, Meds: Lab Review 04/23/17 04/23/17 15:05 15:05 WBC 10.79 H RBC 4.43 L Hgb 13.7 L Hct 41.6 L MCV 93.9 MCH 30.9 MCHC 32.9 RDW Coeff of Nino 15.9 H Plt Count 266 Immature Gran % (Auto) 0.3 Neut % (Auto) 69.8 Lymph % (Auto) 21.1 Ford % (Auto) 8.0 Eos % (Auto) 0.2 Baso % (Auto) 0.6 Immature Gran # (Auto) 0.0 Neut # 7.5 H Lymph # 2.3 Ford # 0.9 Eos # 0.0 Baso # 0.1 Sodium 138 Potassium 4.0 Chloride 100 Carbon Dioxide 29 Anion Gap 13.0 BUN 26 H Creatinine 0.87 Estimated GFR (MDRD) 86.00 BUN/Creatinine Ratio 29.88 Glucose 86 Calcium 9.7 Total Bilirubin 0.4 AST 15 ALT 12 Alkaline Phosphatase 83 Total Protein 7.8 Albumin 3.9 Globulin 3.9 Albumin/Globulin Ratio 1.00 Orders Category Date Time Status CBC W/ AUTO DIFF Stat LAB 04/23/17 15:05 Completed COMPREHENSIVE METABOLIC PANEL Stat LAB 04/23/17 15:05 Completed Morphine Sulfate [Morphine 2 mg/ml Syringe] MEDS 04/23/17 15:00 Discontinued 2 mg IM ONCE STA Ondansetron HCl/Pf [Zofran 4 mg/2 ml] MEDS 04/23/17 15:00 Discontinued 4 mg IM ONCE STA CT ABDOMEN/PELVIS WO CONTRAST Stat RADS 04/23/17 15:00 Completed Medications Discontinued Medications Generic Name Dose Route Start Last Admin Trade Name Freq PRN Reason Stop Dose Admin Morphine Sulfate 2 mg 04/23/17 15:00 Morphine 2 Mg/Ml Syringe IM 04/23/17 15:01 ONCE STA Ondansetron HCl 4 mg 04/23/17 15:00 Zofran 4 Mg/2 Ml IM 04/23/17 15:01 ONCE STA Vital Signs: Temp Pulse Resp BP Pulse Ox 04/23/17 14:32 96.8 F L 95 H 20 181/96 H 98 Departure - Departure Time of Disposition: 16:43 Disposition: HOME SELF-CARE Discharge Problem: Abdominal pain Instructions: Abdominal Pain (ED), Inguinal Hernia (ED), Inguinal Hernia Repair (GEN) Condition: Good Pt referred to PMD for follow-up: Yes Additional Instructions: Please call your Family Physician as soon as possible to schedule a follow-up appointment. Allergies/Adverse Reactions: Allergies No Known Allergies Allergy (Verified 04/23/17 14:42) Home Medications: Ambulatory Orders Aspirin 81 mg PO DAILY tab-cap 04/02/17 Metoprolol Kaur/Hydrochlorothiaz [Metoprolol Er-Hctz 25-12.5 Mg] 1 each PO BID tab-cap 04/02/17 Albuterol Sulfate 0.083% Neb [Albuterol 0.083% Neb] 1 vial NEB RTQ4H 04/20/17 Atorvastatin Calcium [Lipitor] 20 mg PO BEDTIME 04/20/17 Isosorbide Mononitrate [Isosorbide Mononitrate ER] 30 mg PO DAILY 04/20/17 Lisinopril/Hydrochlorothiazide [Lisinopril-Hctz 10-12.5 mg Tab] 1 each PO DAILY 04/20/17 Mometasone/Formoterol [Dulera 100 Mcg/5 Mcg Inhaler] 2 inh IH BID 04/20/17 Mometasone/Formoterol [Dulera 100 Mcg/5 Mcg Inhaler] 13 gm IH 04/20/17 Nitroglycerin 0.4 mg SL DIRECTED PRN 04/20/17 Omeprazole [Prilosec] 20 mg PO BIDAC 04/20/17 Pantoprazole Sodium [Protonix] 40 mg PO BIDAC #60 tablet. 04/20/17 Pantoprazole Sodium [Protonix] 40 mg PO BIDAC #60 tablet. 04/20/17 Sucralfate Susp [Carafate] 1 gm PO ACHS #1 bottle 04/20/17 Sucralfate Susp [Carafate] 1 gm PO ACHS #1 bottle 04/20/17 Disposition Discussed With: Patient
== END 2017-04-23 17:14 | disposition home or self-care (01) ==
LOC: ED 14:31
DX: R10.9 Unspecified abdominal pain (principal); G89.29 Other chronic pain; E78.5 Hyperlipidemia, unspecified; I10 Essential (primary) hypertension; K40.90 Unilateral inguinal hernia, without obstruction or gangrene, not specified as recurrent; Z79.899 Other long term (current) drug therapy; F17.210 Nicotine dependence, cigarettes, uncomplicated
CPT/HCPCS: 36415; 80053; 85025; 99283

== ENCOUNTER 2017-05-16 14:54 | Inpatient (IN) ==
[2017-05-16] MEDS ORDERED: ZOFRAN 4 MG/2 ML IVP PRN (15:17)
[2017-05-16 15:28] VITALS: BMI 18.8
--- NOTE | 2017-05-16 16:21 | DI ---
EXAM: CHEST FRONTAL AND LATERAL VIEWS HISTORY: Cough. COMPARISON: 03/28/2017 FINDINGS: Heart size is normal. There is diffuse, chronic appearing interstitial accentuation. Carl gs are hyperinflated and there is relative lucency of the lung zones suggesting pulmonary emphysema. There are scattered calcifications suggesting old granulomatous disease. No consolidated pneumonia or vascular congestion. Mid thoracic spine compression deformities are stable since prior CT of 10/2016. IMPRESSION: 1. Severe chronic obstructive pulmonary disease is suggested. 2. No definite acute infiltrates.
--- NOTE | 2017-05-16 16:23 | CT ---
EXAM: CT abdomen pelvis without contrast HISTORY: Vomiting COMPARISON: CT abdomen pelvis 04/23/2017 and multiple priors TECHNIQUE: Serial axial images of the abdomen pelvis were performed from the lung bases through the inferior pelvis without contrast. These were viewed in multiple planes. FINDINGS: The lung bases demonstrate mild emphysematous disease. Evaluation is limited due to lack of contrast. There are scattered calcified granulomas of the liver and spleen. Gallbladder is been removed. There is a low attenuation right adrenal lesion which is un changed. Kidneys are unchanged. Spleen is unremarkable with calcified granulomas. Pancreas is unre markable. The stomach and is distended with a mild hiatal hernia. Small bowel in the abdomen pelvis is unremarkable. The appendix is normal. The colon demonstrates m ild diverticulosis without diverticulitis. There is a fat and the small bowel loop contained within the bilateral inguinal hernias with no evidence of obstruction. There is no free air or free fluid. There is moderate atherosclerotic disease. The osseous structures demonstrate fusion hardware from L4-S1 with unchanged vertebraplasty cement with extrusion. No new compression fracture is identified . IMPRESSION: 1. Bilateral inguinal hernias with internal bowel with no evidence of obstruction. 2. Sequela of old granulomatous disease. 3. Multilevel degenerative disease of the spine with postsurgical changes and moderate atherosclerot ic disease.
[2017-05-16] MEDS: CARAFATE PO SCH ×2 (16:57→20:25)
[2017-05-16] MEDS: SOLU-MEDROL 40 MG IVP SCH ×2 (16:57→20:24)
[2017-05-16] MEDS: ROCEPHIN 1 GM in SODIUM CHLORIDE 50 ML IV SCH (16:58)
[2017-05-16] MEDS: PRILOSEC PO SCH (16:58)
[2017-05-16] MEDS: LOPRESSOR PO SCH (16:58)
[2017-05-16] MEDS: SODIUM CHLORIDE 1,000 ML IV SCH (17:02)
[2017-05-16] MEDS: MORPHINE 2 MG/ML SYRINGE IVP PRN (20:24)
[2017-05-16] MEDS: LIPITOR PO SCH (20:25)
[2017-05-16] MEDS: VALIUM PO PRN (20:25)
[2017-05-16] MEDS: DUONEB NEB SCH (21:50)
[2017-05-17] MEDS: SODIUM CHLORIDE 1,000 ML IV SCH ×2 (02:43→16:28)
[2017-05-17] MEDS: MORPHINE 2 MG/ML SYRINGE IVP PRN ×3 (04:24→20:39)
[2017-05-17] MEDS: CARAFATE PO SCH ×4 (05:32→20:09)
[2017-05-17] MEDS: PRILOSEC PO SCH ×2 (05:32→16:29)
[2017-05-17] MEDS: DUONEB NEB SCH ×3 (05:48→21:25)
[2017-05-17] MEDS: ROCEPHIN 1 GM in SODIUM CHLORIDE 50 ML IV SCH (08:48)
[2017-05-17] MEDS: FLONASE NAS SCH (08:48)
[2017-05-17] MEDS: ASPIRIN CHEWABLE PO SCH (08:49)
[2017-05-17] MEDS: SOLU-MEDROL 40 MG IVP SCH ×2 (08:49→20:39)
[2017-05-17] MEDS: HYDROCHLOROTHIAZIDE PO SCH (08:50)
[2017-05-17] MEDS: LOPRESSOR PO SCH ×2 (08:51→16:29)
[2017-05-17] MEDS: ZESTRIL PO SCH (08:51)
[2017-05-17] MEDS: IMDUR PO SCH (08:51)
[2017-05-17] MEDS ORDERED: NON-FORMULARY MEDICATION (Fluticasone Propionate [Flonase Allergy Relief] 9.9 ML) NS SCH (09:00)
[2017-05-17] MEDS: NICODERM 21 MG TD SCH (16:30)
[2017-05-17] MEDS: VALIUM PO PRN (20:10)
[2017-05-17] MEDS: LIPITOR PO SCH (20:10)
[2017-05-18] MEDS: DUONEB NEB SCH ×3 (04:38→21:10)
[2017-05-18] MEDS: PRILOSEC PO SCH ×2 (05:37→16:40)
[2017-05-18] MEDS: CARAFATE PO SCH ×4 (05:38→20:26)
[2017-05-18] MEDS: MORPHINE 2 MG/ML SYRINGE IVP PRN ×3 (05:41→21:58)
[2017-05-18] MEDS: FLONASE NAS SCH (08:01)
[2017-05-18] MEDS: ZESTRIL PO SCH (08:02)
[2017-05-18] MEDS: IMDUR PO SCH (08:02)
[2017-05-18] MEDS: HYDROCHLOROTHIAZIDE PO SCH (08:02)
[2017-05-18] MEDS: LOPRESSOR PO SCH ×2 (08:02→16:40)
[2017-05-18] MEDS: ASPIRIN CHEWABLE PO SCH (08:02)
[2017-05-18] MEDS: NICODERM 21 MG TD SCH (08:03)
[2017-05-18] MEDS: SODIUM CHLORIDE 1,000 ML IV SCH (08:04)
[2017-05-18] MEDS: SOLU-MEDROL 40 MG IVP SCH ×2 (08:06→20:36)
[2017-05-18] MEDS: ROCEPHIN 1 GM in SODIUM CHLORIDE 50 ML IV SCH (08:07)
[2017-05-18] MEDS: LIPITOR PO SCH (20:26)
[2017-05-18] MEDS: VALIUM PO PRN (20:32)
[2017-05-18] MEDS ORDERED: OMNICEF PO SCH (21:00)
[2017-05-19] MEDS: DUONEB NEB SCH (04:45)
[2017-05-19 05:20] VITALS: BP 159/77; TEMP 97.5
[2017-05-19] MEDS: CARAFATE PO SCH (06:00)
[2017-05-19] MEDS: MORPHINE 2 MG/ML SYRINGE IVP PRN (06:00)
[2017-05-19] MEDS: PRILOSEC PO SCH (06:00)
--- NOTE | 2017-05-24 10:00 | PN ---
DATE OF SERVICE: 05/17/17 SUBJECTIVE: The patient was admitted with COPD exacerbation, acute gastroenteritis and vomiting is better. The patient does have a very large hiatal hernia. REVIEW OF SYSTEMS: CONSTITUTIONAL: No fever, no chills. HEENT: Normal. ENDOCRINE: No weight gain, no weight loss. CVS: No angina symptoms. No CHF symptoms. No palpitations. No atypical chest pain for CAD. No shortness of breath. No PND, no orthopnea. RESPIRATORY: Cough some, no hemoptysis. GI: No nausea, no vomiting. No abdominal pain. : No hematuria. No polyuria. MUSCULOSKELETAL: No joint swelling. PSYCHIATRIC: Not anxious. No depression. No suicidal thoughts. No homicidal thoughts. SKIN: Intact. No rash. PHYSICAL EXAMINATION: V/S: Blood pressure 103/45, respiratory rate 20, heart rate 80, temperature 97.8 , saturation 99. HEENT: Normocephalic, atraumatic. Mucosa dry. NECK: Supple. No JVD, no carotid bruit. No lymphadenopathy. LUNGS: Decreased and basilar crackles. No rales or rhonchi. HEART: S1, S2 normal. No S3. No murmur, gallop or regurgitation. ABDOMEN: Soft, nontender. Epigastric discomfort. Bowel sounds active. No rigidity. No rebound or guarding. No CVA tenderness. EXTREMITIES: No pedal edema. No clubbing or cyanosis MUSCULOSKELETAL: No joint swelling. NEUROLOGIC: Awake, alert, oriented times three. No focal deficit. LYMPHATIC: No lymph nodes palpable. SKIN: Intact. LABS: WBC 14.29, hgb 12.5, hct 36.9, plt count 366, sodium 138, potassium 4.4, chloride 101, bicarb 27, BUN 27, creatinine 1.07 and glucose 98 ASSESSMENT: 1. COPD exacerbation secondary to bronchitis 2. Acute gastroenteritis which is better 3. COPD 4. Large Hiatal hernia 5. CAD 6. CHF 7. Hypertension 8. DJD spine 9. Multiple compression fracture deformities PLAN: 1. Continue the Zofran PRN 2. DUO NEBS 3. Omnicef 4. Solu-Medrol 40 Q 12 hours 5. Daily I&O's TIME SPENT: More than 35 minutes MTDD
--- NOTE | 2017-05-24 10:06 | PN ---
DATE OF SERVICE: 05/18/17 SUBJECTIVE: The patient was admitted with the gastroenteritis and COPD exacerbation. The patient is feeling better. Still has some dry hacking cough. Eating good. Still the patient has a problem whenever he takes a big meal. REVIEW OF SYSTEMS: CONSTITUTIONAL: No fever, no chills. HEENT: Normal. ENDOCRINE: No weight gain, no weight loss. CVS: No angina symptoms. No CHF symptoms. No palpitations. No atypical chest pain for CAD. No shortness of breath. No PND, no orthopnea. RESPIRATORY: No cough, no hemoptysis. GI: No nausea, no vomiting. No abdominal pain. : No hematuria. No polyuria. MUSCULOSKELETAL: No joint swelling. PSYCHIATRIC: Not anxious. No depression. No suicidal thoughts. No homicidal thoughts. SKIN: Intact. No rash. PHYSICAL EXAMINATION: V/S: Blood pressure 154/78, respiratory rate 18, heart rate 84, temperature 98.0 with saturation 100%. HEENT: Normocephalic, atraumatic. Mucosa dry. Pallor positive. No icterus. NECK: Supple. No JVD, no carotid bruit. No lymphadenopathy. LUNGS: Decreased and basilar crackles. Clear to auscultation. No rales or rhonchi. HEART: S1, S2 normal. No S3. No murmur, gallop or regurgitation. ABDOMEN: Soft, Epigastric tenderness is present. Bowel sounds active. No rigidity. No rebound or guarding. No CVA tenderness. EXTREMITIES: No pedal edema. No clubbing or cyanosis MUSCULOSKELETAL: No joint swelling. NEUROLOGIC: Awake, alert, oriented times three. No focal deficit. LYMPHATIC: No lymph nodes palpable. SKIN: Intact. LABS: Sodium 136, potassium 3.9, chloride 103, bicarb 24, BUN 27, creatinine 0.93, WBC 12.97, hgb 10.8, hct 34.9, plt count 285. ASSESSMENT: 1. COPD exacerbation secondary to the bronchitis 2. Status post acute gastroenteritis 3. COPD 4. Severe DJD spine with compression deformities 5. Chronic pain syndrome 6. Coronary artery disease 7. Congestive heart failure 8. Hypertension 9. Dyslipidemia PLAN: 1. Continue the Omnicef, Solu-Medrol, DUO NEBS 2. Daily I&O's 3. Out of bed to chair activity as tolerated TIME SPENT: More than 35 minutes MTDD
--- NOTE | 2017-07-15 10:08 | DS ---
DATE OF SERVICE: 05/19/17 FINAL DIAGNOSIS: 1. ACUTE GASTROENTERITIS 2. CHRONIC OBSTRUCTIVE PULMONARY DISEASE EXACERBATION WITH BRONCHITIS 3. CHRONIC OBSTRUCTIVE PULMONARY DISEASE 4. CORONARY ARTERY DISEASE 5. DJD WITH COMPRESSION DEFORMITIES, MULTIPLE 6. CHRONIC PAIN SYNDROME 7. CONGESTIVE HEART FAILURE 8. HYPERTENSION 9. DYSLIPIDEMIA 10. HIATAL HERNIA 11. INGUINAL HERNIA 12. STATUS POST CHOLECYSTECTOMY PLAN: 1. Discharge the patient home. 2. Diet: Cardiac and healthy. Soft diet. 3. Continue home medications. 4. Follow up in the [facility] within five to seven days. 5. Continue Aspirin, Albuterol, Lipitor, Keflex, Valium, Fluticasone, Hydrocodone, Isosorbide, Lisinopril/Hydrochlorothiazide, Metoprolol, Omeprazole and Carafate. 6. Activity: As much as tolerated. DISEASE SPECIFIC EDUCATION: About the gastroenteritis, nausea, vomiting, dehydration, COPD and need for the pneumonia vaccination were discussed and he verbalized understanding. HOSPITAL COURSE: Guido Amezquita, who is a 72 year old male with multiple medical problems of COPD, continued smoking, noncompliance, chronic back pain, came to the office with nausea, vomiting, not able to keep anything down. He had shortness of breath, cough and congestion. He was admitted directly from the office. His white count was 14,000. He had bilateral inguinal hernias. Sequela for old granulomatous disease. Multilevel DJD of the spine with post surgical and moderate at risk pleuritic vascular disease. The patient was started on the steroids, breathing treatments and IV fluids. Solu-Medrol 40 mg every 12 hours, DuoNebs, Sucralfate and Protonix was given for the nausea and vomiting. Zofran did help. Gradually, he started feeling better. Rocephin 1 gram was given. Continued home medications and fluids were set at 60ml per hour. With the given treatment, gradually the patient's nausea and vomiting was better. He was then started on clear liquids and he tolerated this well. We then advanced the diet. He did not have any problems. As the patient was doing good and less coughing and less short of breath and able to tolerate the food, the patient was discharged to home. TIME SPENT: MORE THAN [facility]ES [facility]
== END 2017-05-19 08:55 | disposition home or self-care (01) | DRG 392 ==
LOC: MEDSURG A 14:54
PROVIDERS: ADMIT Emergency Medicine; ATTEND Emergency Medicine
DX: K52.9 Noninfective gastroenteritis and colitis, unspecified (principal); J44.1 Chronic obstructive pulmonary disease with (acute) exacerbation; J44.0 Chronic obstructive pulmonary disease with (acute) lower respiratory infection; J20.9 Acute bronchitis, unspecified; I25.10 Atherosclerotic heart disease of native coronary artery without angina pectoris; M15.9 Polyosteoarthritis, unspecified; G89.4 Chronic pain syndrome; I10 Essential (primary) hypertension; I50.9 Heart failure, unspecified; E78.5 Hyperlipidemia, unspecified; K44.9 Diaphragmatic hernia without obstruction or gangrene; K40.90 Unilateral inguinal hernia, without obstruction or gangrene, not specified as recurrent; D71 Functional disorders of polymorphonuclear neutrophils; M48.54XS Collapsed vertebra, not elsewhere classified, thoracic region, sequela of fracture; F17.200 Nicotine dependence, unspecified, uncomplicated; Z90.49 Acquired absence of other specified parts of digestive tract; Z79.899 Other long term (current) drug therapy
CPT/HCPCS: 36415; 80053; 82150; 83690; 85025; 94640; 99223; 99233; 99239

== ENCOUNTER 2017-07-08 08:28 | Outpatient (CLI) ==
--- NOTE | 2017-07-08 09:13 | DI ---
Exam: Three x-rays of the lumbar spine. Comparison: 09/10/2016. Reason for exam: Low back pain. FINDINGS: Operative changes are seen after pedicle screw and rita fixation spanning L4-S1 with interv ertebral body graft spacer placement. Vertebral plasties/kyphoplasty changes are seen in the L2 vert ebral body with similar appearing extrusion of cement into the disc space. No significant interval ch anges seen when compared to the previous exam with multilevel degenerative disease and compression de formities in the lumbosacral spine. Imaging findings are limited by diffuse osseous demineralization . Impression: 1. Similar appearing operative changes after pedicle screw and rita fixation in the lumbosacral spine with kyphoplasty changes and multilevel degenerative disease with compression deformities, intervert ebral body disc space height loss, and facet hypertrophy. 2. No new fracture or listhesis is seen. 3. No evidence of hardware complication or graft extrusion. If clinical concern exists for radiculo aidan or myelopathy, MRI may be performed for further characterization.
== END 2017-07-08 08:29 | disposition home or self-care (01) ==
LOC: RAD 08:28
PROVIDERS: ATTEND Emergency Medicine
DX: M54.5 Low back pain (principal)

== ENCOUNTER 2017-08-10 06:30 | Inpatient (IN) ==
[2017-08-10] MEDS ORDERED: SOLU-MEDROL 125 MG IVP STA (06:35)
[2017-08-10] MEDS ORDERED: ZOFRAN 4 MG/2 ML IVP STA (06:35)
[2017-08-10] MEDS ORDERED: MORPHINE 2 MG/ML SYRINGE IVP STA (06:35)
[2017-08-10] MEDS ORDERED: DUONEB NEB STA (06:35)
[2017-08-10] MEDS ORDERED: ASPIRIN CHEWABLE PO STA (06:50)
--- NOTE | 2017-08-10 06:50 | ED.PDOC ---
General Stated Complaint: Patient called ambulance as he was more short of breath today , he is been taking antibiotics for the URI, says he got worse over the night. Time Seen by Physician: 06:48 Mode of Arrival: Ambulance Information Source: Patient, EMT Nursing and Triage Documentation Reviewed and Agree: Yes Reviewed sepsis parameters & appropriate labs ordered?: No System Inflammatory Response Syndrome: Not Applicable <KATELYN FERRER - Last Filed: 08/10/17 06:48> <AWA HUSSEIN - Last Filed: 08/10/17 10:15> ED Provider: Dr. AWA HUSSEIN Chief Complaint: Shortness of Air [facility] Seps[facility] Protocol: For patient's 13 years and over: Temp is 96.8 and below OR 101 and greater Pulse >90 BPM Resp >20/minute Acutely Altered Mental Status Are patient's symptoms suggestive of a new infection, such as: -Pneumonia -Skin, Soft Tissue -Endocarditis -UTI -Bone, Joint Infection -Implantable Device -Acute Abdominal Infection -Wound Infection -Meningitis -Blood Stream Catheter Infection -Unknown Respiratory Complaint Exam - Shortness of Air Complaint/Exam Symptoms Are: Still present Timing: Constant Initial Severity: Moderate Current Severity: Moderate Character: Reports: Dyspnea at rest Aggravating: Reports: Allergens Alleviating: Reports: None Associated Signs and Symptoms: Reports: Cough, Wheezing Related History: Reports: Similar episode History of Healthcare-Acquired Pneumonia: No Pulmonary Embolism Risk Factors: Reports: None Cardiac Risk Factors: Reports: CAD, Elevated lipids, Hypertension, CHF Pseudomonas Risk Factors: Reports: None Tuberculosis Risk Factors: Reports: None Home Oxygen Use: No Recent Stress Test: No Recent Echo/LV Function: No Respiratory Distress: Mild Stridor Present: No Tracheal Deviation: No Subcutaneous Emphysema: No Accessory Muscle Use: No Retractions: Not Present Diminished Breath Sounds: Yes Prolonged Expiratory Phase: Yes Unable to Speak Full Sentences: Yes Fatigue: No Leg Swelling: No Kamron's Sign Present: No Grunting Respirations: No Kussmaul Respirations: No Differential Diagnoses: CHF, COPD Exacerbation, Pneumonia Quality Indicators for AMI: EKG in 10min., ASA Given if indicated <KATELYN FERRER - Last Filed: 08/10/17 06:48> Review of Systems - Review Of Systems Constitutional: Reports: Malaise, Weakness Eyes: Reports: No symptoms Ears, Nose, Mouth, Throat: Reports: No symptoms Respiratory: Reports: Cough, Short of air Cardiac: Reports: Chest pain GI: Reports: Abdominal pain : Reports: No symptoms Musculoskeletal: Reports: No symptoms Skin: Reports: No symptoms Neurological: Reports: No symptoms Endocrine: Reports: No symptoms Hematologic/Lymphatic: Reports: No symptoms All Other Systems: Reviewed and Negative <KATELYN FERRER - Last Filed: 08/10/17 06:48> Past Medical History - Past Medical History Previously Healthy: No Endocrine: Reports: Dyslipidemia, Other (rheumatic fever as a child) Cardiovascular: Reports: Hypertension, A-Fib Respiratory: Reports: COPD Hematological: Reports: None, Other (rheumatic fever as a child) Gastrointestinal: Reports: GERD, Liver Genitourinary: Reports: None Neuro/Psych: Reports: None, Migraine Musculoskeletal: Reports: Arthritis (Osteoporosis), Back Pain, Other Cancer: Reports: None Other Pertinent Past Medical History: BACK PROBLEMS, EMPHESEMA: 12/06/15 hospitalized 12/04/15. with back pain. - Surgical History General Surgical History: Reports: Cholecystectomy, Orthopedic (SEVERAL PAST OPERATIONS ON RIGHT HIP Right knee pins/rods/plates placed, Rt hip replaced), Back Surgery (multiple lower back sx), Hernia Repair (Hernia (2017)) - Family History Family History: Reports: None - Social History Smoking Status: Current every day smoker, Heavy tobacco smoker Smoking Cessation Counseling Time: > 3 min - 10 min Hx Substance Use: No Alcohol Screening: None - Immunizations Tetanus Shot up to Date: No (unknown) Influenza Vaccine within 12 Months: No Pneumococcal Vaccine up to Date: Yes (LAST YEAR) <KATELYN FERRER - Last Filed: 08/10/17 06:48> Physical Exam - Physical Exam Appearance: Ill-appearing Ill-appearing: Moderate Pain Distress: Moderate Eyes: NEYDA, EOMI, Conjunctiva clear ENT: Ears normal, Nose normal, Oropharynx normal Respiratory: Crackles, Wheezes Cardiovascular: RRR, Pulses normal, No rub, No murmur GI/: Soft, Nontender, No masses, Bowel sounds normal, No Organomegaly Musculoskeletal: Normal strength, ROM intact, No edema, No calf tenderness Skin: Warm, Dry, Normal color Neurological: Sensation intact, Motor intact, Reflexes intact, Cranial nerves intact, Alert, Oriented Psychiatric: Affect appropriate, Mood appropriate <WU FERRERAN - Last Filed: 08/10/17 06:48> Critical Care Note - Critical Care Note Total Time (mins): 30 <KATELYN FERRER - Last Filed: 08/10/17 06:48> Course - Course Hematology/Chemistry: 08/10/17 06:44 08/10/17 06:44 <AWA HUSSEIN - Last Filed: 08/10/17 10:15> - Course Orders, Labs, Meds: Lab Review 08/10/17 08/10/17 08/10/17 06:44 06:44 06:44 WBC 12.56 H RBC 3.93 L Hgb 11.8 L Hct 36.3 L MCV 92.4 MCH 30.0 MCHC 32.5 RDW Coeff of Nino 14.0 Plt Count 373 Immature Gran % (Auto) 0.5 Neut % (Auto) 63.7 Lymph % (Auto) 27.5 [place] % (Auto) 7.6 Eos % (Auto) 0.0 Baso % (Auto) 0.7 Immature Gran # (Auto) 0.1 Neut # (Auto) 8.0 H Lymph # (Auto) 3.5 H [place] # (Auto) 1.0 Eos # (Auto) 0.0 Baso # (Auto) 0.1 Sodium 141 Potassium 3.5 Chloride 103 Carbon Dioxide 27 Anion Gap 14.5 BUN 19 H Creatinine 0.98 Estimated GFR (MDRD) 75.00 BUN/Creatinine Ratio 19.38 Glucose 104 Calcium 9.4 Total Bilirubin 0.4 AST 13 L ALT 9 L Alkaline Phosphatase 63 Total Creatine Kinase 114 Troponin I 0.0120 B-Natriuretic Peptide 67 Total Protein 7.2 Albumin 3.6 Globulin 3.6 Albumin/Globulin Ratio 1.00 Orders Category Date Time Status EKG-(ED ONLY) Stat CARDIO 08/10/17 06:47 Completed NEBULIZER TREATMENT Stat CARDIO 08/10/17 06:35 Completed NPO REMINDER: IMAGING ONCE CARE 08/10/17 08:01 Completed ED IV/MEDIPORT/POWERPORT .ONCE EMERGENCY 08/10/17 06:35 Active B-TYPE NATRIURETIC PEPTIDE Stat LAB 08/10/17 06:44 Completed CBC W/ AUTO DIFF Stat LAB 08/10/17 06:44 Completed COMPREHENSIVE METABOLIC PANEL Stat LAB 08/10/17 06:44 Completed CREATINE KINASE Stat LAB 08/10/17 06:44 Completed TROPONIN I Stat LAB 08/10/17 06:44 Completed 0.9 % Sodium Chloride [Saline Flush] MEDS 08/10/17 06:35 Active 1 syr IVF PRN PRN Aspirin [Aspirin Chewable] MEDS 08/10/17 06:50 Discontinued 324 mg PO ONCE STA Ipratropium/Albuterol Neb [Duoneb] MEDS 08/10/17 06:35 Discontinued 1 vial NEB ONCE STA Methylprednisolone Sod Succ/Pf [Solu-Medrol 125 mg] MEDS 08/10/17 06:35 Discontinued 80 mg IVP ONCE STA Morphine Sulfate [Morphine 2 mg/ml Syringe] MEDS 08/10/17 06:35 Discontinued 2 mg IVP ONCE STA Ondansetron HCl/Pf [Zofran 4 mg/2 ml] MEDS 08/10/17 06:35 Discontinued 4 [address] IVP ONCE STA CT CHEST W/O CONTRAST Stat RADS 08/10/17 06:[address] SINUSES W/WO CONTRAST Stat RADS 08/10/17 08:00 Completed Medications Generic Name Dose Route Start Last Admin Trade Name Freq PRN Reason Stop Dose Admin Sodium Chloride 1 syr 08/10/17 06:35 08/10/17 07:52 Saline Flush IVF 1 syr PRN PRN Administration To flush IV Discontinued Medications Generic Name Dose Route Start Last Admin Trade Name Freq PRN Reason Stop Dose Admin Albuterol/Ipratropium 1 vial 08/10/17 06:35 08/10/17 07:02 Duoneb NEB 08/10/17 06:36 1 vial ONCE STA Administration Aspirin 324 mg 08/10/17 06:50 08/10/17 07:31 Aspirin Chewable PO 08/10/17 06:51 324 mg ONCE STA Administration Methylprednisolone Sodium Succinate 80 mg 08/10/17 06:35 08/10/17 07:39 Solu-Medrol 125 Mg IVP 08/10/17 06:36 80 mg ONCE STA Administration Morphine Sulfate 2 mg 08/10/17 06:35 08/10/17 07:35 Morphine 2 Mg/Ml Syringe IVP 08/10/17 06:36 2 mg ONCE STA Administration Ondansetron HCl 4 mg 08/10/17 06:35 08/10/17 07:33 Zofran 4 Mg/2 Ml IVP 08/10/17 06:36 4 mg ONCE STA Administration Vital Signs: Temp Pulse Resp BP Pulse Ox 08/10/17 06:32 97.7 F 97 H 24 140/99 H 99 Departure - Departure Pt referred to PMD for follow-up: No IPMP verified?: No Disposition Discussed With: Patient <KATELYN FERRER - Last Filed: 08/10/17 06:48> - Departure Time of Disposition: 09:55 Disposition Discussed With: Patient, Family <AWA HUSSEIN - Last Filed: 08/10/17 10:15> - Departure Disposition: ADMITTED INPATIENT Discharge Problem: COPD with acute exacerbation Condition: Stable Additional Instructions: Admitted per request of Dr Ferrer Discussed with Patient Allergies/Adverse Reactions: Allergies No Known Allergies Allergy (Verified 04/23/17 14:42) Home Medications: Ambulatory Orders Cephalexin [Keflex] 500 mg PO Q12HR 08/10/17 <KATELYN FERRER - Last Filed: 08/10/17 06:48> <AWA HUSSEIN - Last Filed: 08/10/17 10:15> Additional Information: 0750:Assumed mgt from Dr Coleman. Pt with improved respirations but complains of severe nasal drainage and sinsus pressure. CT CHEST REVIEWED Will obtain CT Sinuses to r/o duran sinusitis; explained to patient (AWA HUSSEIN)
--- NOTE | 2017-08-10 09:13 | CT ---
EXAM: CT PARANASAL SINUSES HISTORY: Sinus pressure and drainage TECHNIQUE: CT paranasal sinuses with and without contrast. Detailed axial sections. Coronal and sa gittal reformations. FINDINGS: There is subtle mucosal thickening in the anterior ethmoid cells. No definite frontal, sphenoid or m axillary thickening. There is no sinus fluid identified. Nasal septal deviation toward the left. T urbinates are mildly atrophic. The orbits are grossly unremarkable. IMPRESSION: Minimal chronic ethmoid sinusitis. No sinus fluid. Nasal septal deviation. Slightly atrophic turbi nates. No obvious abscesses identified.
[2017-08-10] MEDS ORDERED: VALIUM PO PRN (10:10)
[2017-08-10] MEDS ORDERED: NITROSTAT SL PRN (10:10)
[2017-08-10] MEDS ORDERED: NON-FORMULARY MEDICATION (Fluticasone Propionate [Flonase Allergy Relief] 9.9 ML) NS SCH (10:15)
[2017-08-10] MEDS: FLONASE NAS SCH (12:11)
[2017-08-10] MEDS: IMDUR PO SCH (12:11)
[2017-08-10] MEDS: ZESTRIL PO SCH (12:12)
[2017-08-10] MEDS: LOPRESSOR PO SCH ×2 (12:12→20:51)
[2017-08-10] MEDS: HYDROCHLOROTHIAZIDE PO SCH (12:13)
[2017-08-10] MEDS: LOVENOX SUBCUT SCH (12:13)
[2017-08-10] MEDS: XOPENEX 0.63 MG NEB SCH ×3 (12:24→23:25)
[2017-08-10 12:51] VITALS: BMI 15.3
[2017-08-10] MEDS: LEVAQUIN 500 MG in PREMIX 100 ML D5W 1 BAG IV SCH (12:52)
[2017-08-10] MEDS: PERCOCET 5-325 PO SCH ×2 (14:47→20:51)
[2017-08-10] MEDS: SODIUM CHLORIDE 1,000 ML IV SCH (14:47)
[2017-08-10] MEDS: MORPHINE 2 MG/ML SYRINGE IVP PRN ×2 (16:59→23:23)
[2017-08-10] MEDS: PULMICORT 0.5 MG/2 ML NEB SCH (17:07)
[2017-08-11] MEDS: PULMICORT 0.5 MG/2 ML NEB SCH ×2 (04:40→17:51)
[2017-08-11] MEDS: XOPENEX 0.63 MG NEB SCH ×4 (04:40→23:20)
[2017-08-11] MEDS: PROTONIX PO SCH ×2 (05:40→16:46)
[2017-08-11] MEDS: MORPHINE 2 MG/ML SYRINGE IVP PRN ×3 (05:43→19:44)
[2017-08-11] MEDS: NICODERM 21 MG TD SCH ×2 (08:28→09:28)
[2017-08-11] MEDS: FLONASE NAS SCH (08:28)
[2017-08-11] MEDS: HYDROCHLOROTHIAZIDE PO SCH (08:29)
[2017-08-11] MEDS: LOPRESSOR PO SCH ×2 (08:30→20:27)
[2017-08-11] MEDS: ZESTRIL PO SCH (08:30)
[2017-08-11] MEDS: IMDUR PO SCH (08:30)
[2017-08-11] MEDS: PERCOCET 5-325 PO SCH ×3 (08:30→20:27)
[2017-08-11] MEDS: LOVENOX SUBCUT SCH (08:31)
[2017-08-11] MEDS: LEVAQUIN 500 MG in PREMIX 100 ML D5W 1 BAG IV SCH (08:44)
[2017-08-11] MEDS ORDERED: SOLU-MEDROL 40 MG IVP SCH (09:00)
[2017-08-11] MEDS: SOLU-MEDROL 125 MG IVP SCH ×2 (10:04→22:17)
[2017-08-11] MEDS: SODIUM CHLORIDE 1,000 ML IV SCH (19:53)
[2017-08-12] MEDS: MORPHINE 2 MG/ML SYRINGE IVP PRN (02:00)
[2017-08-12] MEDS: PULMICORT 0.5 MG/2 ML NEB SCH ×2 (04:28→16:45)
[2017-08-12] MEDS: XOPENEX 0.63 MG NEB SCH ×4 (04:28→23:30)
[2017-08-12] MEDS: PROTONIX PO SCH ×2 (05:52→17:22)
[2017-08-12] MEDS: SOLU-MEDROL 125 MG IVP SCH ×2 (08:41→20:53)
[2017-08-12] MEDS: NICODERM 21 MG TD SCH (08:41)
[2017-08-12] MEDS: FLONASE NAS SCH (08:41)
[2017-08-12] MEDS: HYDROCHLOROTHIAZIDE PO SCH (08:42)
[2017-08-12] MEDS: IMDUR PO SCH (08:42)
[2017-08-12] MEDS: LOPRESSOR PO SCH ×2 (08:42→20:53)
[2017-08-12] MEDS: ZESTRIL PO SCH (08:42)
[2017-08-12] MEDS: PERCOCET 5-325 PO SCH ×3 (08:42→20:53)
[2017-08-12] MEDS: SODIUM CHLORIDE 1,000 ML IV SCH (08:43)
[2017-08-12] MEDS: LEVAQUIN 500 MG in PREMIX 100 ML D5W 1 BAG IV SCH (08:44)
[2017-08-12] MEDS: LOVENOX SUBCUT SCH (08:44)
[2017-08-12] MEDS: MORPHINE 4 MG/ML VIAL IVP PRN ×2 (12:13→19:41)
--- NOTE | 2017-08-12 12:40 | CT ---
EXAM: CT THORAX HISTORY: Chest pain. TECHNIQUE: CT thorax without intravenous contrast. Multiplanar images presented. COMPARISON: 03/28/2017 FINDINGS: Normal heart size. No pericardial effusion. Stable atherosclerosis and prominent aortic caliber. Mo derate pulmonary emphysema. Scattered fibrosis. No vascular congestion, pneumothorax or pleural flui d. No consolidated pneumonia. The bones are demineralized. Stable wedge-shaped compression deformities of two mid thoracic vertebr al bodies. Stable lower thoracic and upper lumbar vertebral body compression fractures. No acute fr acture is obvious. Incidental note of a tiny sliding hiatal hernia. IMPRESSION: 1. No acute cardiopulmonary process identified. Moderate pulmonary emphysema. 2. Stable multilevel vertebral body compression fractures. 3. Tiny sliding hiatal hernia.
[2017-08-13] MEDS: MORPHINE 4 MG/ML VIAL IVP PRN ×4 (02:01→21:13)
[2017-08-13] MEDS: XOPENEX 0.63 MG NEB SCH ×4 (05:10→22:58)
[2017-08-13] MEDS: PULMICORT 0.5 MG/2 ML NEB SCH ×2 (05:10→17:00)
[2017-08-13] MEDS: PROTONIX PO SCH ×2 (06:05→16:41)
[2017-08-13] MEDS: SOLU-MEDROL 125 MG IVP SCH ×2 (08:10→21:00)
[2017-08-13] MEDS: NICODERM 21 MG TD SCH (08:14)
[2017-08-13] MEDS: FLONASE NAS SCH (08:14)
[2017-08-13] MEDS: HYDROCHLOROTHIAZIDE PO SCH (08:15)
[2017-08-13] MEDS: IMDUR PO SCH (08:15)
[2017-08-13] MEDS: PERCOCET 5-325 PO SCH ×3 (08:15→21:01)
[2017-08-13] MEDS: LOPRESSOR PO SCH ×2 (08:15→21:01)
[2017-08-13] MEDS: ZESTRIL PO SCH (08:15)
[2017-08-13] MEDS: LOVENOX SUBCUT SCH (08:16)
[2017-08-13] MEDS: LEVAQUIN 500 MG in PREMIX 100 ML D5W 1 BAG IV SCH (08:16)
--- NOTE | 2017-08-13 09:26 | PN ---
DATE OF SERVICE: 08/11/17 SUBJECTIVE: The patient is still coughing, congestion and some wheezing. Abdominal pain and epigastric pain is better. Chest pain is better. He is complaining of back pain. The patient has a multiple compression deformities. REVIEW OF SYSTEMS: CONSTITUTIONAL: No fever, no chills. HEENT: Normal. ENDOCRINE: No weight gain, no weight loss. CVS: No angina symptoms. No CHF symptoms. No palpitations. No atypical chest pain for CAD. Shortness of breath. No PND, no orthopnea. RESPIRATORY: Cough, no hemoptysis. GI: No nausea, no vomiting. No abdominal pain. : No hematuria. No polyuria. MUSCULOSKELETAL: No joint swelling. PSYCHIATRIC: Not anxious. No depression. No suicidal thoughts. No homicidal thoughts. SKIN: Intact. No rash. PHYSICAL EXAMINATION: V/S: Blood pressure 130/84, respiratory rate 18, heart rate 69, temperature 98 and saturation 99%. HEENT: Normocephalic, atraumatic. Mucosa dry. Pallor positive. No icterus. NECK: Supple. No JVD, no carotid bruit. No lymphadenopathy. LUNGS: Decreased and basilar crackles. Mild expiratory wheeze. Clear to auscultation. No rales or rhonchi. HEART: S1, S2 normal. No S3. No murmur, gallop or regurgitation. ABDOMEN: Soft, nontender.Epigastric discomfort. Bowel sounds active. No rigidity. No rebound or guarding. No CVA tenderness. EXTREMITIES: No pedal edema. No clubbing or cyanosis MUSCULOSKELETAL: No joint swelling. NEUROLOGIC: Awake, alert, oriented times three. No focal deficit. LYMPHATIC: No lymph nodes palpable. SKIN: Intact. LABS: WBC 12.56, hgb 11.8, hct 36.3, plt count 373, sodium 141, potassium 3.5, chloride 103, bicarb 27, BUN 19, creatinine 0.98, glucose 104. ASSESSMENT: 1. COPD exacerbation secondary to the bronchitis 2. Chest pain, noncardiac 3. History of coronary artery disease, status post stent 4. Congestive heart failure 5. Hypertension 6. Dyslipidemia 7. Osteoarthritis 8. DJD spine 9. COPD 10.Multiple compression fractures of the back PLAN: 1. Continue the Aspirin and Pulmicort 2. Lovenox for the DVT prophylaxis 3. DUO NEBS 4. Isosorbide 5. Xopenex 6. Levofloxacin 7. Solu-Medrol 80 Q 8 hours. 8. Morphine PRN 9. Daily I&O's TIME SPENT: More than 35 minutes MTDD
--- NOTE | 2017-08-13 09:45 | HP ---
DATE OF SERVICE: 08/10/17 CHIEF COMPLAINT: Shortness of breath HISTORY OF PRESENT ILLNESS: This is a 72 year old male with a history of COPD, coronary artery disease with status post stents was brought by the ambulance for the severe epigastric chest pain and shortness of breath, cough and congestion. The patient was seen 2-3 days ago in the [facility] and was started on the antibiotics and steroids. Says that it was gradually getting worse and this morning the patient was not able to tolerate the shortness of breath so came to the emergency room and was seen by Dr. Washington in the emergency room. WBC was 12.56 with left shift, CT chest showed the bronchitis and no pneumonia. At that time the patient being admitted to the hospital for the chest pain, pleurisy, upper respiratory infection and COPD. REVIEW OF SYSTEMS: CONSTITUTIONAL: No fever, no chills. Weakness and tiredness. HEENT: Normal. ENDOCRINE: No weight gain; no weight loss. CVS: No chest pain. No PND, no orthopnea. Shortness of breath. No PND, no orthopnea. RESPIRATORY: Cough, Congestion. No hemoptysis. GI: No nausea, no vomiting. No abdominal pain. No melena. : No hematuria. No polyuria. MUSCULOSKELETAL: No joint swelling. Back pain PSYCHIATRIC: Not anxious. No depression. No suicidal thoughts. No homicidal thoughts. SKIN: Intact, no open lesions. PAST MEDICAL HISTORY: Coronary artery disease, status post stent Congestive heart failure Dyslipidemia Hypertension COPD Osteoarthritis DJD spine Multiple compression deformities in the back Diverticulosis Osteoporosis Hypothyroidism PAST SURGICAL HISTORY: Right leg surgical repair PERSONAL HISTORY: The patient smokes one pack a day. No alcohol and no drugs. MEDICATIONS: Albuterol Fluticasone Pantoprazole Metoprolol Isosorbide Atorvastatin Nitroglycerin Lisinopril Albuterol Sucralfate Diazepam Prednisone Oxycodone Keflex ALLERGIES: No known allergies PHYSICAL EXAMINATION: V/S: Blood pressure 140/99, respiratory rate 24, heart rate 97, temperature 97.7 with saturation 99. GENERAL: Cachetic male laying in a bed in distress from the pain and shortness of breath. HEENT: Atraumatic, normocephalic. No scleral icterus. Pallor positive. Mucosa dry. NECK: Supple. No JVD, no bruit. No lymphadenopathy. No thyromegaly. HEART: S1, S2 normal. No murmur. No cyanosis or clubbing. No ascites. LUNGS: Decreased and basilar crackles. Mild expiratory wheezing present . Clear to auscultation. No rales or rhonchi. ABDOMEN: Soft, nontender. Epigastric tenderness is present. Bowel sounds are active. No CVA tenderness. No rigidity or guarding. EXTREMITIES: No pedal edema. No cyanosis or clubbing MUSCULOSKELETAL: Normal joints, no swelling. NEUROLOGIC: The patient is awake and alert. SKIN: Intact; no open lesions. LYMPHATIC: No lymph nodes palpable. LABS: WBC 12.56, hgb 11.8, hct 36.3, plt count 373, sodium 141, potassium 3.5, chloride 103, bicarb 27, BUN 19, creatinine 0.98, glucose 104. ASSESSMENT: 1. COPD exacerbation secondary to the bronchitis 2. Chest pain, noncardiac mostly from the pleurisy 3. Coronary artery disease, status post stent 4. Hypertension 5. Congestive heart failure 6. Dyslipidemia 7. Osteoarthritis 8. Multiple compression deformities in the back 9. Depression 10.Anxiety PLAN: 1. Admit patient to the regular floor 2. CBC and CMP today and daily 3. Cardiac enzymes and troponin 4. IV Fluids 5. Levofloxacin daily 6. Lovenox for the DVT prophylaxis 7. Continue the Isosorbide 8. Solu-Medrol 80 TIME SPENT: MORE THAN 65-70 minutes MTDD
[2017-08-13] MEDS: SODIUM CHLORIDE 1,000 ML IV SCH (13:07)
--- NOTE | 2017-08-13 13:53 | PN ---
DATE OF SERVICE: 08/12/17 SUBJECTIVE: The patient was admitted with COPD exacerbation, bronchitis and chest pain. Cardiac enzymes are negative. The patient is laying in the bed and still coughing and congested getting clear to yellow phlegm. REVIEW OF SYSTEMS: CONSTITUTIONAL: No fever, no chills. HEENT: Normal. ENDOCRINE: No weight gain, no weight loss. CVS: No angina symptoms. No CHF symptoms. No palpitations. No atypical chest pain for CAD. No shortness of breath. No PND, no orthopnea. RESPIRATORY: No cough, no hemoptysis. GI: No nausea, no vomiting. No abdominal pain. : No hematuria. No polyuria. MUSCULOSKELETAL: No joint swelling. PSYCHIATRIC: Not anxious. No depression. No suicidal thoughts. No homicidal thoughts. SKIN: Intact. No rash. PHYSICAL EXAMINATION: V/S: blood pressure 107/63, respiratory rate 20, heart rate 89, temperature 98.4 with saturation is 100. GENERAL: Cachetic male laying in a bed not in any distress. HEENT: Normocephalic, atraumatic. NECK: Supple. No JVD, no carotid bruit. No lymphadenopathy. LUNGS: Decreased and basilar crackles. Expiratory wheezing. Clear to auscultation. No rales or rhonchi. HEART: S1, S2 normal. No S3. No murmur, gallop or regurgitation. ABDOMEN: Soft, nontender. Bowel sounds active. No rigidity. No rebound or guarding. No CVA tenderness. EXTREMITIES: No pedal edema. No clubbing or cyanosis MUSCULOSKELETAL: No joint swelling. NEUROLOGIC: Awake, alert, oriented times three. No focal deficit. LYMPHATIC: No lymph nodes palpable. SKIN: Intact. LABS: WBC 12.56, hgb 11.8, hct 36.3, plt count 373, sodium 141, potassium 3.5, chloride 103, bicarb 27, BUN 19, creatinine 0.98 and glucose 104. ASSESSMENT: 1. COPD exacerbation secondary to the bronchitis 2. Chest pain noncardiac 3. CAD status post stent 4. CHF 5. Hypertension 6. Multiple compression deformities in the back 7. Hiatal hernia PLAN: 1. Continue the Rocephin 2. DUO NEBS 3. Breathing treatments 4. Solu-Medrol Q 12 5. Daily I&O's TIME SPENT: More than 35 minutes MTDD
[2017-08-14] MEDS: MORPHINE 4 MG/ML VIAL IVP PRN ×2 (03:16→10:10)
[2017-08-14] MEDS: XOPENEX 0.63 MG NEB SCH ×2 (04:32→11:17)
[2017-08-14] MEDS: PULMICORT 0.5 MG/2 ML NEB SCH (04:32)
[2017-08-14 05:50] VITALS: BP 138/72; TEMP 97.8
[2017-08-14] MEDS: PROTONIX PO SCH (06:04)
[2017-08-14] MEDS ORDERED: CITRATE OF MAGNESIA PO STA (06:42)
[2017-08-14] MEDS: FLONASE NAS SCH (08:37)
[2017-08-14] MEDS: NICODERM 21 MG TD SCH (08:37)
[2017-08-14] MEDS: SOLU-MEDROL 125 MG IVP SCH (08:38)
[2017-08-14] MEDS: LOVENOX SUBCUT SCH (08:38)
[2017-08-14] MEDS: ZESTRIL PO SCH (08:39)
[2017-08-14] MEDS: HYDROCHLOROTHIAZIDE PO SCH (08:39)
[2017-08-14] MEDS: LOPRESSOR PO SCH (08:39)
[2017-08-14] MEDS: PERCOCET 5-325 PO SCH (08:39)
[2017-08-14] MEDS: IMDUR PO SCH (08:39)
[2017-08-14] MEDS: LEVAQUIN 500 MG in PREMIX 100 ML D5W 1 BAG IV SCH (09:42)
--- NOTE | 2017-08-14 10:56 | PN ---
DATE OF SERVICE: 08/13/17 SUBJECTIVE: Still coughing and congestion with shortness of breath with minimal exertion. REVIEW OF SYSTEMS: CONSTITUTIONAL: No fever, no chills. HEENT: Normal. ENDOCRINE: No weight gain, no weight loss. CVS: No angina symptoms. No CHF symptoms. No palpitations. No atypical chest pain for CAD. Shortness of breath. No PND, no orthopnea. RESPIRATORY: Cough, no hemoptysis. GI: No nausea, no vomiting. No abdominal pain. : No hematuria. No polyuria. MUSCULOSKELETAL: No joint swelling. PSYCHIATRIC: Not anxious. No depression. No suicidal thoughts. No homicidal thoughts. SKIN: Intact. No rash. PHYSICAL EXAMINATION: V/S: Blood pressure 144/75, respiratory rate 20, heart rate 78, temperature 98.3 with saturation 97 on 2 liters. HEENT: Normocephalic, atraumatic. Mucosa dry. Pallor positive. No icterus. NECK: Supple. No JVD, no carotid bruit. No lymphadenopathy. LUNGS: Decreased and basilar crackles, left more than the right. Clear to auscultation. No rales or rhonchi. HEART: S1, S2 normal. No S3. No murmur, gallop or regurgitation. ABDOMEN: Soft, nontender. Bowel sounds active. No rigidity. No rebound or guarding. No CVA tenderness. EXTREMITIES: No pedal edema. No clubbing or cyanosis MUSCULOSKELETAL: No joint swelling. NEUROLOGIC: Awake, alert, oriented times three. No focal deficit. LYMPHATIC: No lymph nodes palpable. SKIN: Intact. LABS: WBC 12.56, hgb 11.8, hct 36.3, plt count 373, sodium 141, potassium 3.5, chloride 103, bicarb 27, BUN 19, creatinine 0.98 and glucose 104. ASSESSMENT: 1. COPD Exacerbation secondary to the bibasilar pneumonia 2. Chest pain, noncardiac 3. CAD status post stent 4. CHF 5. Hypertension 6. Multiple compression deformities in the back 7. Osteoarthritis 8. DJD spine PLAN: 1. Lovenox for the DVT prophylaxis 2. Levofloxacin 3. Solu-Medrol 80Q 12 hours 4. DUO NEBS 5. Will get CBC and CMP in the morning TIME SPENT: More than 35 minutes MTDD
--- NOTE | 2017-10-03 14:40 | DS ---
DATE OF SERVICE: 08/14/17 FINAL DIAGNOSIS: 1. COPD EXACERBATION SECONDARY TO BRONCHITIS 2. MODERATE PULMONARY EMPHYSEMA 3. CAD STATUS POST STENTS, MULTIPLE, 2017 4. HYPERTENSION 5. DYSLIPIDEMIA 6. CHF 7. CHRONIC PAIN SYNDROME 8. DJD SPINE WITH MULTIPLE COMPRESSION DEFORMITIES 9. TINY SLIDING HIATAL HERNIA 10. INGUINAL HERNIA 11. CHOLECYSTECTOMY DISCHARGE INSTRUCTIONS: 1. Discharge the patient home 2. Followup in the [facility] with 5 to 7 days MEDICATIONS AT DISCHARGE: 1. Start breathing treatments 2. Continue Albuterol 3. Lipitor 4. Valium 5. Flonase 6. Isosorbide 7. Lisinopril 8. Hydrochlorothiazide 9. Metoprolol 10. Nitroglycerin 11. Hydrocodone 12. Pantoprazole 13. Carafate NEW PRESCRIPTIONS: Prednisone 10 mg twice a day for 5 days Keflex 500 mg twice a day for 5 days DIET INSTRUCTIONS: Cardiac and healthy ACTIVITY: As much as tolerated SMOKING: Counseling for smoking done DISEASE SPECIFIC EDUCATION: COPD exacerbation needing pneumonia vaccination and avoiding smoke discussed and verbalized understanding. HOSPITAL COURSE: This 72-year-old male with multiple medical problems came to the emergency room with cough, congestion and shortness of breath. White count was 12,000. CT chest negative for pneumonia. Despite giving the steroids and breathing treatment, the patient was still wheezing so the patient was admitted with COPD exacerbation and bronchitis. He was started on IV antibiotics, breathing treatments and Solu-Medrol. With the given treatment, gradually the patient started feeling better. Morphine was given for the pain because the patient had the chronic pain. Levofloxacin was given, antibiotic Lovenox for DVT prophylaxis. Solu-Medrol 80 q.8hr. With the given treatment, gradually he was up and about walking, did not have any problems. As the patient was feeling better, less short of breath, the patient was discharged home. TIME SPENT: MORE THAN 65 MINUTES MTDD
== END 2017-08-14 11:47 | disposition home or self-care (01) | DRG 192 ==
LOC: ED 06:30 → MEDSURG B 10:39
PROVIDERS: ADMIT Emergency Medicine; ATTEND Emergency Medicine
DX: J44.1 Chronic obstructive pulmonary disease with (acute) exacerbation (principal); J40 Bronchitis, not specified as acute or chronic; J43.8 Other emphysema; I25.10 Atherosclerotic heart disease of native coronary artery without angina pectoris; I10 Essential (primary) hypertension; E78.5 Hyperlipidemia, unspecified; I50.9 Heart failure, unspecified; G89.4 Chronic pain syndrome; M47.20 Other spondylosis with radiculopathy, site unspecified; K44.9 Diaphragmatic hernia without obstruction or gangrene; K40.90 Unilateral inguinal hernia, without obstruction or gangrene, not specified as recurrent; Z72.0 Tobacco use
CPT/HCPCS: 36415; 80053; 82550; 82962; 83880; 84484; 85025; 93005; 93010; 94640; 96374; 96375; 99233; 99239; 99284

== ENCOUNTER 2017-10-06 15:06 | Emergency (ER) ==
[2017-10-06 15:13] VITALS: BP 127/69; TEMP 97.1; BMI 18.8
--- NOTE | 2017-10-06 15:47 | CT ---
EXAM: CT abdomen pelvis without contrast TECHNIQUE: Helical axial CT of the abdomen and pelvis was performed without contrast with coronal an d sagittal reconstructions. COMPARISON: CT pelvis from 05/16/2017 HISTORY: Abdominal pain FINDINGS: There is no acute abnormality. Specifically there is no mesenteric inflammation, free air, free fluid or bowel wall thickening or edema or pathologic lymph nodes or obstruction or ileus. The liver, spleen, pancreas,and adrenal glands show no acute abnormality. There is a stable adrenal a denoma on the right measuring 2.5 cm. There is extensive old granulomatous disease. Lung bases show s ome hyperexpansion and some scarring or atelectasis on the right. There is a small hiatal hernia. Th ere has been prior cholecystectomy. There is no biliary or pancreatic ductal dilatation. There are no suspicious renal masses or large cysts and no hydronephrosis. There are no kidney stones . Both ureters demonstrate normal course and caliber. There is no filling defect in the urinary blad cori. The prostate is enlarged. There is a left-sided inguinal hernia containing loops of bowel with no evidence for obstruction or incarceration. The appendix is unremarkable. There are no inflamed colonic diverticula. There is advanced calcific atherosclerosis of the aorta. There are no acute osseous abnormalities. There has been extensive pos tsurgical change in the lumbar spine with multiple compressions. IMPRESSION: 1. No acute abnormality in the abdomen or pelvis. 2. Left inguinal hernia with no evidence for obstruction or incarceration. 3. Multiple other nonacute findings as detailed above.
--- NOTE | 2017-10-06 16:03 | ED.PDOC ---
General ED Provider: Dr. SPENCER GARIBAY Chief Complaint: Abdominal Pain Stated Complaint: ABDOMINAL PAIN Time Seen by Physician: 15:10 (CHRONIC ISSUE ) Mode of Arrival: Wheelchair Information Source: Patient Exam Limitations: No limitations Primary Care Provider: KATELYN FINK Referred to ED by: Other (NO TRAUMA/NO CHEST PAIN) Nursing and Triage Documentation Reviewed and Agree: Yes Reviewed sepsis parameters & appropriate labs ordered?: Yes (SEEN WITH PT'S NURSE AT ALL TIMES ) System Inflammatory Response Syndrome: Not Applicable Sepsis Protocol: For patient's 13 years and over: Temp is 96.8 and below OR 101 and greater Pulse >90 BPM Resp >20/minute Acutely Altered Mental Status Are patient's symptoms suggestive of a new infection, such as: -Pneumonia -Skin, Soft Tissue -Endocarditis -UTI -Bone, Joint Infection -Implantable Device -Acute Abdominal Infection -Wound Infection -Meningitis -Blood Stream Catheter Infection -Unknown GI Complaint Exam - Abdominal Pain Complaint/Exam Onset: Gradual Duration: MORE TODAY Symptoms Are: Still present Timing: Intermittent Initial Severity: Moderate Current Severity: Mild Location of Pain: Diffuse, Epigastric Radiates To: Denies: Chest, Back, Flank, LLQ, RLQ, Inguinal Character: Reports: Aching Aggravating: Reports: None Alleviating: Reports: None Associated Signs and Symptoms: Reports: Cough. Denies: Diaphoresis, Fever, Chest pain, Dizziness, Back pain, Constipation, Blood in stool, Dysuria, Urinary frequency, Decreased urine output, Decreased appetite, Discharge, Nausea , Vomiting, Diarrhea, Decreased activity Related History: Reports: Similar episode AAA Risk Factors: Reports: Hypertension Cardiac Risk Factors: Reports: Hypertension, Elevated lipids Testicular Torsion Risk Factors: Reports: None Surgical Obstruction Risk Factors: Reports: None Related Surgical History: Reports: None Abdominal Findings: Present: None Differential Diagnoses: Appendicitis, Bowel Obstruction, Constipation, Diverticulitis, Gastroenteritis, UTI Quality Indicators for AMI: EKG in 10min. Quality Indicators for Cardiac Chest Pain: EKG in 10min. Quality Indicator For Non-Traumatic Chest Pain/Syncope: EKG Performed Review of Systems - Review Of Systems Constitutional: Reports: Malaise Eyes: Reports: No symptoms Ears, Nose, Mouth, Throat: Reports: No symptoms Respiratory: Reports: No symptoms Cardiac: Reports: No symptoms GI: Reports: Abdominal pain : Reports: No symptoms Musculoskeletal: Reports: No symptoms Skin: Reports: No symptoms Neurological: Reports: No symptoms Endocrine: Reports: No symptoms Hematologic/Lymphatic: Reports: No symptoms All Other Systems: Reviewed and Negative Past Medical History - Past Medical History Previously Healthy: No Endocrine: Reports: Dyslipidemia, Other (rheumatic fever as a child) Cardiovascular: Reports: Hypertension, A-Fib Respiratory: Reports: COPD Hematological: Reports: None, Other (rheumatic fever as a child) Gastrointestinal: Reports: GERD, Liver Genitourinary: Reports: None Neuro/Psych: Reports: None, Migraine Musculoskeletal: Reports: Arthritis (Osteoporosis), Back Pain, Other Cancer: Reports: None Other Pertinent Past Medical History: BACK PROBLEMS, EMPHESEMA: 12/06/15 hospitalized 12/04/15. with back pain. - Surgical History General Surgical History: Reports: Cholecystectomy, Orthopedic (SEVERAL PAST OPERATIONS ON RIGHT HIP Right knee pins/rods/plates placed, Rt hip replaced), Back Surgery (multiple lower back sx), Hernia Repair (Hernia (2017)) - Family History Family History: Reports: None - Social History Smoking Status: Current every day smoker, Heavy tobacco smoker Hx Substance Use: No Alcohol Screening: None - Immunizations Tetanus Shot up to Date: Yes Influenza Vaccine within 12 Months: No Pneumococcal Vaccine up to Date: Yes (LAST YEAR) Physical Exam - Physical Exam Appearance: Well-appearing, No pain distress, Well-nourished Eyes: NEYDA, EOMI, Conjunctiva clear ENT: Ears normal, Nose normal, Oropharynx normal Respiratory: Airway patent, Breath sounds clear, Breath sounds equal, Respirations nonlabored Cardiovascular: RRR, Pulses normal, No rub, No murmur GI/: Soft, Nontender, No masses, Bowel sounds normal, No Organomegaly Musculoskeletal: Normal strength, ROM intact, No edema, No calf tenderness Skin: Warm, Dry, Normal color Neurological: Sensation intact, Motor intact, Reflexes intact, Cranial nerves intact, Alert, Oriented Psychiatric: Affect appropriate, Mood appropriate Interpretation - Radiology Interpretation Radiology Interpretation By: Radiologist Radiology Results: No acute changes - Clinical Editor Rate: Normal Rhythm: Sinus Ectopy: None - EKG Interpretation Rate: Normal Rhythm: Sinus Ectopy: None [place]: NL ST Segment: Normal Critical Care Note - Critical Care Note Total Time (mins): 0 Course - Course Hematology/Chemistry: 10/06/17 15:25 10/06/17 15:25 Orders, Labs, Meds: Lab Review 10/06/17 10/06/17 10/06/17 15:25 15:25 15:38 WBC 9.56 RBC 3.89 L Hgb 11.7 L Hct 35.4 L MCV 91.0 MCH 30.1 MCHC 33.1 RDW Coeff of Nino 14.9 H Plt Count 309 Immature Gran % (Auto) 0.5 Neut % (Auto) 65.6 Lymph % (Auto) 25.9 [place] % (Auto) 7.0 Eos % (Auto) 0.1 Baso % (Auto) 0.9 Immature Gran # (Auto) 0.1 Neut # (Auto) 6.3 Lymph # (Auto) 2.5 [place] # (Auto) 0.7 Eos # (Auto) 0.0 Baso # (Auto) 0.1 Sodium 136 Potassium 3.7 Chloride 100 Carbon Dioxide 24 Anion Gap 15.7 BUN 18 Creatinine 1.04 Estimated GFR (MDRD) 70.00 BUN/Creatinine Ratio 17.30 Glucose 107 Calcium 9.3 Total Bilirubin 0.9 AST 14 L ALT 11 L Alkaline Phosphatase 63 Total Protein 7.4 Albumin 3.8 Globulin 3.6 Albumin/Globulin Ratio 1.06 Urine Color Dark Urine Clarity Clear Urine pH 6.0 Ur Specific [place] 1.015 Urine Protein Negative Urine Glucose (UA) Negative Urine Ketones Negative Urine Blood Negative Urine Nitrite Negative Urine Bilirubin Negative Urine Urobilinogen 0.2 Ur Leukocyte Esterase Negative Orders Category Date Time Status EKG-(ED ONLY) Stat CARDIO 10/06/17 15:12 Completed CBC W/ AUTO DIFF Stat LAB 10/06/17 15:25 Completed COMPREHENSIVE METABOLIC PANEL Stat LAB 10/06/17 15:25 Completed URINALYSIS C & S IF INDICATED Stat LAB 10/06/17 15:[address] ABDOMEN/PELVIS WO CONTRAST Stat RADS 10/06/17 15:11 Completed Vital Signs: Temp Pulse Resp BP Pulse Ox 10/06/17 15:06 97.1 F L 80 15 127/69 96 Departure - Departure Time of Disposition: 16:03 Disposition: HOME SELF-CARE Discharge Problem: Abdominal pain Instructions: Abdominal Pain (ED) Condition: Good Pt referred to PMD for follow-up: Yes IPMP verified?: No Additional Instructions: Please call your Family Physician as soon as possible to schedule a follow-up appointment. Allergies/Adverse Reactions: Allergies No Known Allergies Allergy (Verified 04/23/17 14:42) Disposition Discussed With: Patient
== END 2017-10-06 16:11 | disposition home or self-care (01) ==
LOC: ED 15:06
DX: R10.9 Unspecified abdominal pain (principal); R05 Cough; I10 Essential (primary) hypertension; E78.5 Hyperlipidemia, unspecified; F17.210 Nicotine dependence, cigarettes, uncomplicated
CPT/HCPCS: 36415; 80053; 81001; 85025; 93005; 93010; 99283

== ENCOUNTER 2018-01-08 17:35 | Outpatient (CLI) | END 2018-01-08 17:36 | disposition home or self-care (01) | LOC: AMBL 17:35 | PROVIDERS: ATTEND Family Medicine | DX: R06.02 Shortness of breath (principal); R52 Pain, unspecified; R06.2 Wheezing; F17.210 Nicotine dependence, cigarettes, uncomplicated; J44.9 Chronic obstructive pulmonary disease, unspecified; I10 Essential (primary) hypertension; Z99.81 Dependence on supplemental oxygen ==

== ENCOUNTER 2018-01-30 10:38 | Inpatient (IN) | payer OTHER ==
[2018-01-30] MEDS ORDERED: DUONEB NEB STA (11:02)
[2018-01-30] MEDS ORDERED: PREDNISONE PO STA (11:02)
--- NOTE | 2018-01-30 11:29 | DI ---
EXAM: Two views of the chest. History: Cough. Comparison: Chest radiograph 05/16/2017, chest CT 08/10/2017 Findings: Heart size is normal. Coronary calcifications. Emphysema. No consolidated pneumonia. A therosclerotic vascular calcifications. No appreciable pleural fluid and no pneumothorax. Calcified granulomas are again seen within the thorax. Stable chronic compression deformities within the spin e. Impression: 1. No acute cardiopulmonary process. 2. Emphysema. 3. Coronary artery disease
--- NOTE | 2018-01-30 12:47 | ED.PDOC ---
General ED Provider: Dr. SPENCER GARIBAY Chief Complaint: Shortness of Air Stated Complaint: short of air Time Seen by Physician: 10:40 (seen with the pt's nurse at all times no chest pain) Mode of Arrival: Walk-In Information Source: Patient Exam Limitations: No limitations Primary Care Provider: BON LE Nursing and Triage Documentation Reviewed and Agree: Yes Does patient meet sepsis criteria?: No System Inflammatory Response Syndrome: Not Applicable (o2 sat on arrival 98%) Sepsis Protocol: For patient's 13 years and over: Temp is 96.8 and below OR 101 and greater Pulse >90 BPM Resp >20/minute Acutely Altered Mental Status Are patient's symptoms suggestive of a new infection, such as: -Pneumonia -Skin, Soft Tissue -Endocarditis -UTI -Bone, Joint Infection -Implantable Device -Acute Abdominal Infection -Wound Infection -Meningitis -Blood Stream Catheter Infection -Unknown Respiratory Complaint Exam - Respiratory Complaint/Exam Onset/Duration: chronic issue Symptoms Are: Still present, Resolved Initial Severity: Mild Current Severity: None Location: Throat, Chest Character: Reports: Non-productive cough, Dry cough Aggravating: Reports: None Alleviating: Reports: Spontaneous resolution Associated Signs and Symptoms: Reports: URI, Nasal congestion. Denies: Rapid breathing, Dyspnea, Fever, Chills, Chest pain, Pleuritic chest pain, Wheezing, Hemoptysis, Dizziness, Calf pain, Calf swelling, Edema, Hoarseness, Sinus discomfort, Vomiting, Sore throat, Weight loss, Decreased oral intake, Increased thirst, Increased appetite, Increased urination Related History: Reports: Similar episode (COPD) History of Healthcare-Acquired Pneumonia: No Related Surgical History: Reports: None Pulmonary Embolism Risk Factors: Smoking (INFACT ADMITTED TO SMOKING HEAVILY PAST 2 DAYS ) Cardiac Risk Factors: Reports: Elevated lipids, Hypertension Tuberculosis Risk Factors: Reports: None Status Asthmaticus Risk Factors: Reports: None Home Oxygen Use: No Recent Stress Test: No Recent Echo/LV Function: No Current Antibiotic Use: No Respiratory Distress: None Inadequate Respiratory Effort: No Dysphagia Present: No Stridor Present: No JVD Present: No Accessory Muscle Use: No Retractions: Not Present Diminished Breath Sounds: No Sinus Tenderness: None Grunting Respirations: No Kussmaul Respirations: No Differential Diagnoses: COPD Exacerbation, Pneumonia Review of Systems - Review Of Systems Constitutional: Reports: No symptoms Eyes: Reports: No symptoms Ears, Nose, Mouth, Throat: Reports: No symptoms Respiratory: Reports: Cough Cardiac: Reports: No symptoms GI: Reports: No symptoms : Reports: No symptoms Musculoskeletal: Reports: No symptoms Skin: Reports: No symptoms Neurological: Reports: No symptoms Endocrine: Reports: No symptoms Hematologic/Lymphatic: Reports: No symptoms All Other Systems: Reviewed and Negative Past Medical History - Past Medical History Previously Healthy: No Endocrine: Reports: Dyslipidemia, Other (rheumatic fever as a child) Cardiovascular: Reports: Hypertension, A-Fib Respiratory: Reports: COPD Hematological: Reports: None, Other (rheumatic fever as a child) Gastrointestinal: Reports: GERD, Liver Genitourinary: Reports: None Neuro/Psych: Reports: None, Migraine Musculoskeletal: Reports: Arthritis (Osteoporosis), Back Pain, Other Cancer: Reports: None Other Pertinent Past Medical History: BACK PROBLEMS, EMPHESEMA: 12/06/15 hospitalized 12/04/15. with back pain. - Surgical History General Surgical History: Reports: Cholecystectomy, Orthopedic (SEVERAL PAST OPERATIONS ON RIGHT HIP Right knee pins/rods/plates placed, Rt hip replaced), Back Surgery (multiple lower back sx), Hernia Repair (Hernia (2017)) - Family History Family History: Reports: None - Social History Smoking Status: Current every day smoker, Heavy tobacco smoker Hx Substance Use: No Alcohol Screening: None - Immunizations Tetanus Shot up to Date: No Influenza Vaccine within 12 Months: No Pneumococcal Vaccine up to Date: Yes (LAST YEAR) Physical Exam - Physical Exam Appearance: Well-appearing, No pain distress, Well-nourished Eyes: NEYDA, EOMI, Conjunctiva clear ENT: Ears normal, Nose normal, Oropharynx normal Respiratory: Rhonchi Cardiovascular: RRR, Pulses normal, No rub, No murmur GI/: Soft, Nontender, No masses, Bowel sounds normal, No Organomegaly Musculoskeletal: Normal strength, ROM intact, No edema, No calf tenderness Skin: Warm, Dry, Normal color Neurological: Sensation intact, Motor intact, Reflexes intact, Cranial nerves intact, Alert, Oriented Psychiatric: Affect appropriate, Mood appropriate Interpretation - Radiology Interpretation Radiology Interpretation By: Radiologist Radiology Results: No acute changes - Gin Clerk Rate: Normal Rhythm: Sinus Ectopy: PACs - EKG Interpretation Rate: Normal Rhythm: Sinus Ectopy: PACs Re-Evaluation - Re-Evaluation Time of Re-Evaluation: 11:15 Status: Improved Vital Signs Stable: Yes Pain Level: 0 Appearance: NAD Lungs: Clear Skin: Warm and Dry Neuro: Alert and Oriented X3 CV: RRR - Re-Evaluation Time of Re-Evaluation: 12:48 Status: Improved Vital Signs Stable: Yes Pain Level: 0 Appearance: NAD Skin: Warm and Dry Neuro: Alert and Oriented X3 CV: RRR Physician Notification - Case Discussed Physician Notified: [email or web address] Time of Notification: 14:01 Critical Care Note - Critical Care Note Total Time (mins): 0 Course - Course Hematology/Chemistry: 01/30/18 11:15 01/30/18 11:15 Orders, Labs, Meds: Lab Review 01/30/18 01/30/18 01/30/18 11:15 11:15 11:15 WBC 5.66 RBC 3.49 L Hgb 10.5 L Hct 31.6 L MCV 90.5 MCH 30.1 MCHC 33.2 RDW Coeff of Nino 15.6 H Plt Count 288 Immature Gran % (Auto) 0.2 Neut % (Auto) 67.1 Lymph % (Auto) 20.7 [place] % (Auto) 10.6 H Eos % (Auto) 0.0 Baso % (Auto) 1.4 Immature Gran # (Auto) 0.0 Neut # (Auto) 3.8 Lymph # (Auto) 1.2 [place] # (Auto) 0.6 Eos # (Auto) 0.0 Baso # (Auto) 0.1 Sodium 134.4 L Potassium 3.23 L Chloride 100.7 Carbon Dioxide 30.5 H Anion Gap 6.43 BUN 15.7 Creatinine 0.89 Estimated GFR (MDRD) 84.00 BUN/Creatinine Ratio 17.64 Glucose 113.3 H Calcium 8.51 Total Bilirubin 0.64 AST 77.6 H ALT 32.8 Alkaline Phosphatase 57.1 Total Creatine Kinase 934.7 H CK-MB (CK-2) 19.600 H* CK-MB (CK-2) % 2.0900 Troponin I 0.017 Total Protein 6.31 Albumin 3.72 Globulin 2.59 Albumin/Globulin Ratio 1.43 Orders Category Date Time Status EKG-(ED ONLY) Stat CARDIO 01/30/18 10:54 Completed NEBULIZER TREATMENT Stat CARDIO 01/30/18 11:02 Completed CBC W/ AUTO DIFF Stat LAB 01/30/18 11:15 Completed COMPREHENSIVE METABOLIC PANEL Stat LAB 01/30/18 11:15 Completed CREATINE KINASE Stat LAB 01/30/18 11:15 Completed TROPONIN I Stat LAB 01/30/18 11:15 Completed Ipratropium/Albuterol Neb [Duoneb] MEDS 01/30/18 11:02 Discontinued 1 vial NEB ONCE STA Prednisone MEDS 01/30/18 11:02 Discontinued 40 mg PO ONCE STA CHEST, 2 VIEWS PA & LAT Stat RADS 01/30/18 10:54 Completed Medications Discontinued Medications Generic Name Dose Route Start Last Admin Trade Name Rosalind PRN Reason Stop Dose Admin Albuterol/Ipratropium 1 vial 01/30/18 11:02 01/30/18 11:19 Duoneb NEB 01/30/18 11:03 1 vial ONCE STA Administration Prednisone 40 mg 01/30/18 11:02 01/30/18 11:19 Prednisone PO 01/30/18 11:03 40 mg ONCE STA Administration Vital Signs: Temp Pulse Resp BP Pulse Ox 01/30/18 10:38 98.2 F 72 18 171/81 H 98 Departure - Departure Time of Disposition: 13:00 Disposition: ADMITTED INPATIENT Discharge Problem: Elevated CK COPD (chronic obstructive pulmonary disease) Qualifiers: Chronic bronchitis type: unspecified Instructions: How to Stop Smoking (ED), Emphysema (ED), COPD (Chronic Obstructive Pulmonary Disease) (ED) Condition: Good Pt referred to PMD for follow-up: Yes IPMP verified?: No Additional Instructions: Please call your Family Physician as soon as possible to schedule a follow-up appointment.YOUR ENZYEMS ARE HIGH I DISCUSSED .I THINK THIS MAY BE DUE TO YOUR CHOLESTROL MEDICATIONS. HAVE THEM REPEATED SOON IF YOUR HAVE PAIN IN ARMS ,LEGS THIS COULD LASO BE DUE TO THE SAME MEDICATION Allergies/Adverse Reactions: Allergies No Known Allergies Allergy (Verified 01/30/18 10:42) Disposition Discussed With: Patient
[2018-01-30] MEDS ORDERED: VALIUM PO PRN (14:01)
[2018-01-30] MEDS ORDERED: NITROSTAT SL PRN (14:01)
[2018-01-30 15:28] VITALS: BMI 17.9
[2018-01-30] MEDS: PROTONIX PO SCH (16:16)
[2018-01-30] MEDS: K-DUR PO SCH ×2 (16:16→21:18)
[2018-01-30] MEDS: ZITHROMAX PO SCH (16:17)
[2018-01-30] MEDS: NORCO 10-325 PO PRN ×2 (16:17→21:14)
[2018-01-30] MEDS: NICODERM 21 MG TD SCH (16:17)
[2018-01-30] MEDS: LOVENOX SUBCUT SCH (16:19)
[2018-01-30] MEDS: DUONEB NEB SCH (17:39)
[2018-01-30] MEDS: LOPRESSOR PO SCH (21:19)
[2018-01-30] MEDS: SOLU-MEDROL 40 MG IVP SCH (21:20)
[2018-01-31] MEDS: DUONEB NEB SCH ×5 (00:30→23:00)
[2018-01-31] MEDS: NORCO 10-325 PO PRN ×6 (01:20→22:25)
[2018-01-31] MEDS: SOLU-MEDROL 40 MG IVP SCH (05:15)
[2018-01-31] MEDS: PROTONIX PO SCH ×2 (05:40→16:39)
[2018-01-31] MEDS ORDERED: NON-FORMULARY MEDICATION (Fluticasone Propionate [Flonase Allergy Relief] 9.9 ML) NS SCH (09:00)
[2018-01-31] MEDS: NICODERM 21 MG TD SCH (09:31)
[2018-01-31] MEDS: ROCEPHIN 1 GM in SODIUM CHLORIDE 50 ML IV SCH (09:31)
[2018-01-31] MEDS: LOVENOX SUBCUT SCH (09:31)
[2018-01-31] MEDS: FLONASE NAS SCH (09:31)
[2018-01-31] MEDS: LOPRESSOR PO SCH ×2 (09:32→20:52)
[2018-01-31] MEDS: HYDROCHLOROTHIAZIDE PO SCH (09:32)
[2018-01-31] MEDS: ZITHROMAX PO SCH (09:32)
[2018-01-31] MEDS: IMDUR PO SCH (09:32)
[2018-01-31] MEDS: K-DUR PO SCH ×3 (09:32→20:52)
[2018-01-31] MEDS: ZESTRIL PO SCH (09:32)
[2018-01-31] MEDS ORDERED: SOLU-MEDROL 40 MG IVP SCH (13:00)
[2018-01-31] MEDS: SOLU-MEDROL 125 MG IVP SCH ×2 (13:22→21:36)
--- NOTE | 2018-01-31 15:00 | HP ---
DATE OF SERVICE: 01/30/18 CHIEF COMPLAINT: Shortness of breath. HISTORY OF PRESENT ILLNESS: This is a 72 year old male who presented to the emergency room complaining of shortness of breath. He had been seen at the [facility] by Nii Reed and was instructed to come to the emergency room. PAST MEDICAL HISTORY: Dyslipidemia History of rheumatic fever as a child Hypertension Atrial fibrillation Chronic obstructive pulmonary disease Smoker GERD Fatty liver History of migraines Osteoarthritis Osteoporosis Chronic back pain PAST SURGICAL HISTORY: Status post cholecystectomy Multiple surgeries on right hip Total right hip replacement Right knee surgery Back surgery Status post hernia repair in 2017 SOCIAL HISTORY: He is a current everyday heavy tobacco smoker. Denies any alcohol or illicit drug use. REVIEW OF SYSTEMS: CONSTITUTIONAL: No night sweats. No fatigue, malaise, lethargy. No fever or chills. HEENT: Eyes: No visual changes. No eye pain. No eye discharge. ENT: No runny nose. No epistaxis. No sinus pain. No sore throat. No odynophagia. No ear pain. No congestion. RESPIRATORY: Cough, no congestion. No hemoptysis. Shortness of breath. CARDIOVASCULAR: No angina symptoms. No CHF symptoms. No atypical chest pain for CAD. No palpitations. No PND. No orthopnea. GASTROINTESTINAL: No abdominal pain. No nausea or vomiting. No diarrhea or constipation. No hematemesis. No hematochezia. GENITOURINARY: No urgency. No frequency. No dysuria. No hematuria. No obstructive symptoms. No discharge. No pain. No significant abnormal bleeding. MUSCULOSKELETAL: No musculoskeletal pain. No joint swelling. No arthritis. NEUROLOGICAL: No headache. No neck pain. No syncope. No seizures. No dizziness. PSYCHIATRIC: Not anxious. No depression. No suicidal thoughts. No homicidal thoughts. SKIN: No rash. No lesions. No wounds. ENDOCRINE: No unexplained weight loss. No weight gain. HEMATOLOGIC/LYMPHATIC: No anemia. No purpura. No petechiae. No prolonged or excessive bleeding. No palpable lymph nodes. LABS: White count 5.66, hemoglobin 10.5, hematocrit 31.6, platelets 288, sodium 134, potassium 30.2, chloride 100.7, BUN 15, creatinine 0.89, total bilirubin 0.6, AST 77, ALT 32, total CK 934, CKMB 19, percentage is only 2.09 and Troponin is negative. So it does not appear that this is cardiac in nature. Total protein 6.3, albumin 3.72. There are no acute changes in his EKG. Chest x-ray shows no acute cardiopulmonary process. Emphysema and coronary artery disease. MEDICATIONS: Albuterol Sulfate 2.5 mg/3 ml vial neb. inhalation every 4-6 hours prn Lipitor 20 mg p.o. bedtime Nitroglycerin 0.4 mg SL prn Flonase Allergy Relief 9.9 ml NS daily Lisinopril/HCTZ 10/12.5 mg daily Isosorbide Mononitrate 30 mg daily Metoprolol Tartrate 25 mg twice daily Diazepam 5 mg at bedtime Pantoprazole sodium 40 mg twice daily AC ProAir HFA one to two puffs every 4-6 hours prn Hydrocodone/Acetaminophen 10/325 mg every 4 hours prn ALLERGIES: No known drug allergies. PHYSICAL EXAMINATION: GENERAL: Alert and oriented times three. VITAL SIGNS: Temperature 98.2, heart rate 72, respirations 18, blood pressure 171/81, pulse ox 98% on room air. HEENT: Head normocephalic, atraumatic. Eyes: Extraocular muscles are intact. Pupils are equal, round and reactive to light and accommodation. Ears: No lesions. Nose appeared normal. Throat: No exudate or erythema. NECK: Supple. No JVD, no carotid bruit. No lymphadenopathy or thyromegaly. LUNGS: Diminished breath sounds bilaterally. Percussion note normal. Chest symmetrical. HEART: S1, S2, no S3. No murmurs. No cyanosis or clubbing. No ascites. Pulses: Dorsalis pedis and posterior tibial pulses +1 to +2 bilaterally. ABDOMEN: Soft. Nontender. Bowel sounds active. No CVA tenderness. No mass felt. EXTREMITIES: No edema. Full range of motion of all extremities, equal. NEUROLOGIC: No focal deficit. Cranial nerves II through XII are grossly intact. No headache, no double vision or headache. SKIN: Not dry. Intact. Turgor - normal. LYMPHATIC: No palpable lymph nodes/no lymphedema. MUSCULOSKELETAL: Normal joints with no swelling. Muscle tone is normal. ASSESSMENT: 1. SHORTNESS OF BREATH, ACUTE CHRONIC OBSTRUCTIVE PULMONARY DISEASE EXACERBATION 2. HYPOKALEMIA 3. ANEMIA 4. HYPERTENSION 5. DYSLIPIDEMIA 6. CHRONIC OBSTRUCTIVE PULMONARY DISEASE 7. SMOKER PLAN: 1. We will admit. 2. Routine telemetry orders. 3. CBC, CMP daily. 4. Sputum culture. 5. Normal saline IV at 75 cc per hour. 6. Start Rocephin 1 gram IV daily. 7. Start Solu-Cortef 125 mg IV every 8 hours. 8. DuoNebs every 6 hours scheduled. 9. Oxygen at 1-2 liters as needed. 10. 40 mEq of Potassium p.o. twice daily. 11. Continue all home medications. 12. Low sodium diet. 13. Will follow closely. Again, his EKG shows no acute changes. His Troponin is negative. CKMB percentage at 2, so this does not indicate that it is any kind of cardiac process. COPD and acute bronchitis. Will follow closely. TIME SPENT: More than 70 minutes. [facility]
[2018-02-01] MEDS: NORCO 10-325 PO PRN ×6 (02:22→22:59)
[2018-02-01] MEDS: DUONEB NEB SCH ×4 (05:15→23:30)
[2018-02-01] MEDS: PROTONIX PO SCH ×2 (05:51→16:47)
[2018-02-01] MEDS: SOLU-MEDROL 125 MG IVP SCH ×3 (05:51→20:51)
[2018-02-01] MEDS: ZESTRIL PO SCH (09:14)
[2018-02-01] MEDS: HYDROCHLOROTHIAZIDE PO SCH (09:15)
[2018-02-01] MEDS: IMDUR PO SCH (09:16)
[2018-02-01] MEDS: LOPRESSOR PO SCH ×2 (09:16→20:52)
[2018-02-01] MEDS: K-DUR PO SCH ×3 (09:16→20:51)
[2018-02-01] MEDS: NICODERM 21 MG TD SCH (09:17)
[2018-02-01] MEDS: FLONASE NAS SCH (09:17)
[2018-02-01] MEDS: ROCEPHIN 1 GM in SODIUM CHLORIDE 50 ML IV SCH (09:21)
[2018-02-01] MEDS: LOVENOX SUBCUT SCH (09:21)
[2018-02-01] MEDS: ZITHROMAX PO SCH (09:23)
[2018-02-02] MEDS: NORCO 10-325 PO PRN ×5 (03:06→20:50)
[2018-02-02] MEDS: DUONEB NEB SCH ×4 (04:56→23:10)
[2018-02-02] MEDS: SOLU-MEDROL 125 MG IVP SCH ×3 (05:37→23:54)
[2018-02-02] MEDS: PROTONIX PO SCH ×2 (05:39→16:30)
[2018-02-02] MEDS: IMDUR PO SCH (08:45)
[2018-02-02] MEDS: K-DUR PO SCH ×4 (08:45→20:21)
[2018-02-02] MEDS: ZESTRIL PO SCH (08:46)
[2018-02-02] MEDS: ZITHROMAX PO SCH (08:46)
[2018-02-02] MEDS: ROCEPHIN 1 GM in SODIUM CHLORIDE 50 ML IV SCH (08:47)
[2018-02-02] MEDS: LOPRESSOR PO SCH ×2 (08:47→20:20)
[2018-02-02] MEDS: NICODERM 21 MG TD SCH (08:48)
[2018-02-02] MEDS: LOVENOX SUBCUT SCH (08:52)
[2018-02-02] MEDS: FLONASE NAS SCH (09:24)
[2018-02-02] MEDS: HYDROCHLOROTHIAZIDE PO SCH (09:25)
[2018-02-03] MEDS: NORCO 10-325 PO PRN ×3 (01:01→09:23)
[2018-02-03] MEDS: DUONEB NEB SCH ×2 (05:00→11:14)
[2018-02-03] MEDS: SOLU-MEDROL 125 MG IVP SCH (05:12)
[2018-02-03] MEDS: PROTONIX PO SCH (05:43)
[2018-02-03] MEDS ORDERED: ZESTRIL PO SCH (08:17)
[2018-02-03] MEDS: IMDUR PO SCH (09:20)
[2018-02-03] MEDS: K-DUR PO SCH (09:21)
[2018-02-03] MEDS: LOPRESSOR PO SCH (09:21)
[2018-02-03] MEDS: HYDROCHLOROTHIAZIDE PO SCH (09:22)
[2018-02-03] MEDS: NICODERM 21 MG TD SCH (09:23)
[2018-02-03] MEDS: LOVENOX SUBCUT SCH (09:26)
--- NOTE | 2018-02-03 09:28 | PCM.PROG ---
Attending Provider: ATTENDING PROVIDER: [facility] patient is seen with Swathi Davies, Nurse Practitioner. DATE OF SERVICE: 02/03/18 SUBJECTIVE: This 72 year old WHITE/ M was hospitalized 01/30/18. The patient is sitting on side of bed, alert. resting comfortably. Breathing is better. Blood pressure has been slightly elevated. Anticipate discharge home today. The patient has 02 at home. REVIEW OF SYSTEMS: CONSTITUTIONAL: Weakness. No night sweats. No malaise, lethargy. No fever or chills. HEENT: Eyes: No visual changes. No eye pain. No eye discharge. ENT: No runny nose. No epistaxis. No sinus pain. No odynophagia. No congestion. RESPIRATORY: Cough. No congestion. No hemoptysis. No shortness of breath. CARDIOVASCULAR: No angina symptoms. No CHF symptoms. No atypical chest pain for CAD. No palpitations. No orthopnea.. GASTROINTESTINAL: No abdominal pain. No nausea or vomiting. No diarrhea or constipation. No hematemesis. No hematochezia. GENITOURINARY: No urgency. No frequency. No dysuria. No hematuria. No obstructive symptoms. No discharge. No pain. No significant abnormal bleeding. MUSCULOSKELETAL: No musculoskeletal pain; no joint swelling. NEUROLOGICAL: Awake, alert, oriented to time, place and person. No headache. No neck pain. No syncope. No seizures. No dizziness. PSYCHIATRIC: Not anxious. No depression. No suicidal thoughts. No homicidal thoughts. SKIN: No rash. No lesions. No wounds. ENDOCRINE: No unexplained weight loss. No weight gain. HEMATOLOGIC/LYMPHATIC: No anemia. No purpura. No petechiae. No prolonged or excessive bleeding. No palpable lymph nodes. PHYSICAL EXAMINATION: GENERAL: The patient is awake, alert and oriented, lying in bed in no distress. VITAL SIGNS: Temperature 97.8 F, Pulse 81, Respiratory Rate 16, BP 158/78, Pulse Ox 98% HEENT: Head normocephalic, atraumatic. Eyes: Extraocular muscles are intact. Pupils are equal, round and reactive to light and accommodation. Ears: No lesions. Nose appeared normal. Throat: No exudate or erythema. NECK: Supple. No JVD, no carotid bruit. No lymphadenopathy or thyromegaly. LUNGS: Diminished breath sounds. No wheezing. Clear to auscultation. Percussion note normal. Chest symmetrical. HEART: S1, S2, no S3. No murmurs. No cyanosis or clubbing. No ascites. Pulses: Dorsalis pedis and posterior tibial pulses +1 to +2 both sides. ABDOMEN: Soft. Non-tender. Bowel sounds active. No CVA tenderness. No mass felt. EXTREMITIES: No edema. Full range of motion of all extremities, equal. NEUROLOGIC: No focal deficit. Cranial nerves II through XII are grossly intact. No headache, no double vision or headache. SKIN: Not dry. Intact. Turgor-normal. LYMPHATIC: No palpable lymph nodes/no lymphedema. MUSCULOSKELETAL: Normal joints with no swelling. Muscle tone is normal. LAB REVIEW: 02/03/18 05:00 02/03/18 05:00 02/03/18 05:00: Sodium 131.0 L, Potassium 3.70, Chloride 97.7 L, Carbon Dioxide 31.1 H, Anion Gap 5.90, BUN 28.3 H, Creatinine 0.79, Estimated GFR (MDRD) 96.00 , BUN/Creatinine Ratio 35.82, Glucose 191.5 H, Calcium 8.61, Total Bilirubin 0.26, AST 44.4, ALT 29.5, Alkaline Phosphatase 51.3 L, Total Protein 5.71 L, Albumin 3.41 L, Globulin 2.30, Albumin/Globulin Ratio 1.48 02/03/18 05:00: WBC 10.90 H, RBC 3.33 L, Hgb 10.0 L, Hct 30.3 L, MCV 91.0, MCH 30.0, MCHC 33.0, RDW Coeff of Nino 15.3 H, Plt Count 290, Immature Gran % (Auto) 0.5, Neut % (Auto) 93.4, Lymph % (Auto) 3.3 L, Teller % (Auto) 2.7, Eos % (Auto) 0.0, Baso % (Auto) 0.1, Immature Gran # (Auto) 0.1, Neut # (Auto) 10.2 H, Lymph # (Auto) 0.4 L, Teller # (Auto) 0.3 L, Eos # (Auto) 0.0, Baso # (Auto) 0.0 ASSESSMENT: 1. ACUTE COPD EXACERBATION, IMPROVING. 2. HYPERTENSION, CONTROLLED. 3. UTI. PLAN: 1. Discharge home. 2. Followup in the clinic later this week. 3. Omnicef 300 mg b.i.d. times five days. 4. Prednisone 10 mg b.i.d. times five days. Plan and coordination of the patient's care discussed in the presence of Ed Manager and nurse. CONDITION: Stable SCRIBED BY: SYLVIE UP Pharmaceutical Process Engineer scribed while in presence of service performed by Dr. Crabtree/Swathi Davies APRN on 02/03/18 ([id number])
[2018-02-03] MEDS: FLONASE NAS SCH (09:30)
[2018-02-03] MEDS: ROCEPHIN 1 GM in SODIUM CHLORIDE 50 ML IV SCH (09:31)
--- NOTE | 2018-02-03 09:53 | PN ---
DATE OF SERVICE: 01/30/18 SUBJECTIVE: The patient is a 72-year-old white male hospitalized with exacerbation of COPD along with atypical chest pain. The patient had 2% CK-MB with high CK level. He has a history of having cardiac cath done at [facility] a few months ago. There was no intervention done. He was told that he he doesn't need anything to be done at the present time. He has a history of coronary artery disease, doesn't say that he ever had a stent but the patient is a poor historian. He complains of back problems and back pain and wants pain medicine. PHYSICAL EXAMINATION: GENERAL: The patient is oriented to time, place and person, not in distress. VITAL SIGNS: Temperature 98, pulse 72, respiratory rate 18, BP 170/80 in the emergency room. Oxygen sat 98%. HEENT: Head normocephalic, atraumatic. Eyes: Extraocular muscles are intact. Pupils are equal, round and reactive to light and accommodation. Ears: No lesions. Nose appeared normal. Throat: No exudate or erythema. NECK: Supple. No JVD, no carotid bruit. No lymphadenopathy or thyromegaly. LUNGS: Decreased breath sounds but clear to auscultation. Percussion note normal. Chest symmetrical. HEART: S1, S2, no S3. No murmurs. No cyanosis or clubbing. No ascites. Pulses: Dorsalis pedis and posterior tibial pulses +1 bilaterally. ABDOMEN: Soft. Nontender. Bowel sounds active. No CVA tenderness. No mass felt. EXTREMITIES: No pedal edema. Full range of motion of all extremities, equal. NEUROLOGIC: No focal deficit. Cranial nerves II through XII are grossly intact. No headache, no double vision or headache. SKIN: Not dry. Intact. Turgor - normal. LYMPHATIC: No palpable lymph nodes/no lymphedema. MUSCULOSKELETAL: Normal joints with no swelling. Muscle tone is normal. ASSESSMENT: 1. ACUTE EXACERBATION OF COPD, WILL TREAT WITH ANTIBIOTICS. PLAN: 1. Zithromax 500 mg daily for 3 days along with steroids, nebs treatment. 2. Advised to quit smoking. 3. Counseling for smoking done. 4. Will monitor the EKG and cardiac markers. 5. Will do echocardiogram. 6. Will try to get records from [facility]. 7. Back exercises discussed. 8. The side effects of all medications discussed including Atorvastatin and Rhabdomyolysis. CONDITION: Stable. The patient was seen with the nurse practitioner. TIME SPENT: More than 30 minutes. Plan and coordination of the patient's care discussed in the presence of nurse. HUE
[2018-02-03 10:32] VITALS: BP 147/66; TEMP 98.1
--- NOTE | 2018-02-03 10:51 | PN ---
DATE OF SERVICE: 02/01/18 SUBJECTIVE: The patient has been walking with a walker. He has been doing much better. He is less short of breath. He is still coughing some, nonproductive. REVIEW OF SYSTEMS: CONSTITUTIONAL: No night sweats. No fatigue, malaise, lethargy. No fever or chills. HEENT: Eyes: No visual changes. No eye pain. No eye discharge. ENT: No runny nose. No epistaxis. No sinus pain. No sore throat. No odynophagia. No congestion. RESPIRATORY: Mild cough. No congestion. No hemoptysis. No shortness of breath. CARDIOVASCULAR: No angina symptoms. No CHF symptoms. No atypical chest pain for CAD. No palpitations. No orthopnea. GASTROINTESTINAL: Appetite has improved. No abdominal pain. No nausea or vomiting. No diarrhea or constipation. No hematemesis. No hematochezia. GENITOURINARY: No urgency. No frequency. No dysuria. No hematuria. No obstructive symptoms. No discharge. No pain. No significant abnormal bleeding. MUSCULOSKELETAL: No musculoskeletal pain; no joint swelling. NEUROLOGICAL: No headache. No neck pain. No syncope. No seizures. No dizziness. PSYCHIATRIC: Not anxious. No depression. No suicidal thoughts. No homicidal thoughts. SKIN: No rash. No lesions. No wounds. ENDOCRINE: No unexplained weight loss. No weight gain. HEMATOLOGIC/LYMPHATIC: No anemia. No purpura. No petechiae. No prolonged or excessive bleeding. No palpable lymph nodes. PHYSICAL EXAMINATION: VITAL SIGNS: Temperature 98.1, pulse 77, respiratory rate 18, BP 128/63, pulse ox 99%. HEENT: Head normocephalic, atraumatic. Eyes: Extraocular muscles are intact. Pupils are equal, round and reactive to light and accommodation. Ears: No lesions. Nose appeared normal. Throat: No exudate or erythema. NECK: Supple. No JVD, no carotid bruit. No lymphadenopathy or thyromegaly. LUNGS: Decreased breath sounds but clear to auscultation. Kyphosis is present. Percussion note normal. Chest symmetrical. HEART: S1, S2, no S3. No murmurs. No cyanosis or clubbing. No ascites. Pulses: Dorsalis pedis and posterior tibial pulses +1 to +2 both sides. ABDOMEN: Soft. Nontender. Bowel sounds active. No CVA tenderness. No mass felt. EXTREMITIES: No edema. Full range of motion of all extremities, equal. NEUROLOGIC: No focal deficit. Cranial nerves II through XII are grossly intact. No headache, no double vision or headache. SKIN: Not dry. Intact. Turgor - normal. LYMPHATIC: No palpable lymph nodes/no lymphedema. MUSCULOSKELETAL: Normal joints with no swelling. Muscle tone is normal. LABS: Hemoglobin 10.2, hematocrit 30, WBC 12,000, normal differential. Creatinine 0.7 , BUN 27, potassium 4.1. ASSESSMENT: 1. ACUTE BRONCHITIS WITH SEVERE CHRONIC LUNG DISEASE WITH HISTORY OF SMOKING, SEEMS TO BE UNDER CONTROL. PLAN: 1. Continue steroids, antibiotics, nebs treatment. 2. The patient is advised to quit smoking. Counseling done. The patient is advised to join pulmonary rehab and he declined. CONDITION: Stable/Improving. TIME SPENT: More than 30 minutes. Plan and coordination of the patient's care discussed in the presence of nurse. HUE
--- NOTE | 2018-02-03 10:58 | PN ---
DATE OF SERVICE: 01/31/18 SUBJECTIVE: 72-year-old white male was seen and examined with the nurse practitioner. As the patient's condition is improved, bronchitis symptoms are much less. Echo showed normal LV contractility and normal LV size, borderline RV cavity enlargement. Otherwise echo was practically normal. The patient's EKG and telemetry showed sinus rhythm. No ST-T wave change. No evidence of acute SC. CONDITION: Stable. TIME SPENT: More than 30 minutes. Plan and coordination of the patient's care discussed in the presence of nurse. HUE
--- NOTE | 2018-02-03 11:06 | PN ---
DATE OF SERVICE: 02/02/18 SUBJECTIVE: The patient refuses to wear oxygen, refuses nebs treatment this morning. The patient was short of breath at that time. He is noncompliant, wants more pain medications. PHYSICAL EXAMINATION: VITAL SIGNS: Temperature 97.7, pulse 64, respiratory rate 12, BP 160/70. Pulse ox 99% on 2L. HEENT: Head normocephalic, atraumatic. Eyes: Extraocular muscles are intact. Pupils are equal, round and reactive to light and accommodation. Ears: No lesions. Nose appeared normal. Throat: No exudate or erythema. NECK: Supple. No JVD, no carotid bruit. No lymphadenopathy or thyromegaly. LUNGS: Decreased breath sounds but clear to auscultation. Percussion note normal. Chest symmetrical. HEART: S1, S2, no S3. No murmurs. No cyanosis or clubbing. No ascites. Pulses: Dorsalis pedis and posterior tibial pulses +1 to +2 both sides. ABDOMEN: Soft. Nontender. Bowel sounds active. No CVA tenderness. No mass felt. EXTREMITIES: No edema. Full range of motion of all extremities, equal. NEUROLOGIC: No focal deficit. Cranial nerves II through XII are grossly intact. No headache, no double vision or headache. SKIN: Not dry. Intact. Turgor - normal. LYMPHATIC: No palpable lymph nodes/no lymphedema. MUSCULOSKELETAL: Normal joints with no swelling. Muscle tone is normal. LABS: Hemoglobin 9.8, hematocrit 29, WBC 12,000, normal differential. Creatinine 0.7, BUN 27, potassium 4.3. ASSESSMENT: 1. ACUTE BRONCHITIS, STABLE. 2. COPD. CONDITION: The patient's overall condition is stable. The patient is noncompliant of medications, lifestyle. Counseling for smoking done. TIME SPENT: More than 30 minutes. Plan and coordination of the patient's care discussed in the presence of nurse. HUE
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
--- NOTE | 2018-02-04 11:40 | PN ---
DATE OF SERVICE: 01/31/18 SUBJECTIVE: The patient states he is still significantly short of breath, not feeling much better today. He has not eaten but 50 to 75% of his meals. He is scheduled for an echo today with Dr. Mcdowell. REVIEW OF SYSTEMS: CONSTITUTIONAL: Positive for weakness. No night sweats. No fatigue, malaise, lethargy. No fever or chills. HEENT: Eyes: No visual changes. No eye pain. No eye discharge. ENT: No runny nose. No epistaxis. No sinus pain. No sore throat. No odynophagia. No congestion. RESPIRATORY: Positive for shortness of breath, cough. No hemoptysis. CARDIOVASCULAR: No angina symptoms. No CHF symptoms. No atypical chest pain for CAD. No palpitations. No orthopnea. GASTROINTESTINAL: No abdominal pain. No nausea or vomiting. No diarrhea or constipation. No hematemesis. No hematochezia. GENITOURINARY: No urgency. No frequency. No dysuria. No hematuria. No obstructive symptoms. No discharge. No pain. No significant abnormal bleeding. MUSCULOSKELETAL: Chronic back pain. NEUROLOGICAL: No headache. No neck pain. No syncope. No seizures. No dizziness. PSYCHIATRIC: Not anxious. No depression. No suicidal thoughts. No homicidal thoughts. SKIN: No rash. No lesions. No wounds. ENDOCRINE: No unexplained weight loss. No weight gain. HEMATOLOGIC/LYMPHATIC: No anemia. No purpura. No petechiae. No prolonged or excessive bleeding. No palpable lymph nodes. PHYSICAL EXAMINATION: GENERAL: The patient is somewhat cachetic in appearance. VITAL SIGNS: Temperature 98.5, heart rate 68, respirations 20, BP 146/72, pulse ox 98%. HEENT: Head normocephalic, atraumatic. Eyes: Extraocular muscles are intact. Pupils are equal, round and reactive to light and accommodation. Ears: No lesions. Nose appeared normal. Throat: No exudate or erythema. NECK: Supple. No JVD, no carotid bruit. No lymphadenopathy or thyromegaly. LUNGS: Severely diminished breath sounds bilaterally with bilateral inspiratory and expiratory wheezing. Percussion note normal. Chest symmetrical. HEART: Regular heart sounds. S1, S2, no S3. No murmurs. No cyanosis or clubbing. No ascites. Pulses: Dorsalis pedis and posterior tibial pulses +1 to +2 both sides. ABDOMEN: Soft. Nontender. Bowel sounds active. No CVA tenderness. No mass felt. EXTREMITIES: No leg edema. Full range of motion of all extremities, equal. NEUROLOGIC: No focal deficit. Cranial nerves II through XII are grossly intact. No headache, no double vision or headache. SKIN: Not dry. Intact. Turgor - normal. LYMPHATIC: No palpable lymph nodes/no lymphedema. MUSCULOSKELETAL: Normal joints with no swelling. Muscle tone is normal. LABS: 01/31/18: WBC 4.71, hemoglobin 10.3, platelets 293, hematocrit 20.8. Chemistries: Sodium 133.5, chloride 100.8, BUN 22.3, glucose 137.9, potassium 4.38, c02 32.1, creatinine 0.83, glucose 137.9. ASSESSMENT: 1. ACUTE BRONCHITIS. 2. ACUTE COPD EXACERBATION. 3. SMOKER. 4. ANEMIA. 5. HYPONATREMIA. 6. CORONARY ARTERY DISEASE. 7. CHRONIC BACK PAIN WITH HISTORY OF COMPRESSION FRACTURE, SEES PAIN MANAGEMENT. PLAN: 1. Will increase Solu-Medrol to 125 mg IV q.8hr. 2. He is doing Duonebs q.6hr scheduled. 3. We have continued his [place] which he gets from Pain Management as he does have multiple compression fractures. 4. Echocardiogram by Dr. Mcdowell today. 5. IV fluids NS at 75 cc/hr. 6. Will follow him closely. TIME SPENT: More than 30 minutes. Plan and coordination of the patient's care discussed in the presence of nurse. HUE
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
--- NOTE | 2018-02-04 12:45 | ECHO2D ---
Date of Exam: 01/31/18 Ordering Physician: DR. AMY CRABTREE--HOSPITALIST Room #: 120 Reason for Echo: ELEVATED CARDIAC ENZYMES, CAD, RESPIRATORY FAILURE M-Mode Normal Adult Results LV Dimensions Normal Adult Results AoV Opening excursions >1.6 >1.6 LVEDD-base- 3.5-5.8 4.1 Ao root dimensions 2.0-3.7 2.8 LVESD-base- 3.1-4.6 L. Atrium dimensions 1.9-3.8 3.9 Post. Wall thickness 0.8-1.1 1.0 IV septum (thickness) 0.7-1.2 1.1 Post. Wall excursion 0.72-1.3 NORMAL Septal motion NORMAL Systolic motion R. Ventricular cavity 1.5-2.0 NORMAL LVEF 60% 50% Paradoxical septal wall motion NORMAL 2-D : 2-D M Mode Echocardiogram was performed using apical four chamber and left parasternal long and short axis views. Mitral, tricuspid and aortic valves appear to be normal. Contractility of the left ventricle seems to be normal, so is the cavity size. Left atrial cavity size and aortic root appear to be normal. There is no pericardial effusion. There is no thrombus noted in the left ventricular or left aortic cavity. No mitral valve prolapse noted. M-MODE: MV: NORMAL AV: NORMAL TV: NORMAL PV: CHAMBER SIZE: NORMAL WALL MOTION: NORMAL PERICARDIUM: NORMAL INTERPRETATION: 1. NORMAL 2 "D" "M" MODE [facility]CHO [facility]
--- NOTE | 2018-02-06 09:58 | PN ---
DATE OF SERVICE: 02/03/18 SUBJECTIVE: The patient is seen and examined with the nurse practitioner. His condition is stable. He is walking around, up and about in no distress. PHYSICAL EXAMINATION: HEENT: Head normocephalic, atraumatic. Eyes: Extraocular muscles are intact. Pupils are equal, round and reactive to light and accommodation. Ears: No lesions. Nose appeared normal. Throat: No exudate or erythema. NECK: Supple. No JVD, no carotid bruit. No lymphadenopathy or thyromegaly. LUNGS: Decreased breath sounds. Clear to auscultation. Percussion note normal. Chest symmetrical. HEART: S1, S2, no S3. No murmurs. No cyanosis or clubbing. No ascites. Pulses: Dorsalis pedis and posterior tibial pulses +1 to +2 both sides. ABDOMEN: Soft. Nontender. Bowel sounds active. No CVA tenderness. No mass felt. EXTREMITIES: No edema. Full range of motion of all extremities, equal. NEUROLOGIC: No focal deficit. Cranial nerves II through XII are grossly intact. No headache, no double vision or headache. SKIN: Not dry. Intact. Turgor - normal. LYMPHATIC: No palpable lymph nodes/no lymphedema. MUSCULOSKELETAL: Normal joints with no swelling. Muscle tone is normal. ASSESSMENT/PLAN: 1. The patient is noncompliant. 2. Advised to quit smoking. 3. Pulmonary rehab discussed and declined. CONDITION: Stable TIME SPENT: More than 30 minutes. Plan and coordination of the patient's care discussed in the presence of nurse. HUE
--- NOTE | 2018-02-06 09:59 | PN ---
CODING FOR BILLING 01/30/18 LEVEL 5 01/31/18 INTERMEDIATE 02/01/18 INTERMEDIATE 02/02/18 INTERMEDIATE 02/03/18 DISCHARGE MTDD
== END 2018-02-03 12:20 | disposition home or self-care (01) | DRG 191 ==
LOC: ED 10:38 → MEDSURG B 14:14
PROVIDERS: ADMIT Internal Medicine; ATTEND Internal Medicine
DX: J44.1 Chronic obstructive pulmonary disease with (acute) exacerbation (principal); N39.0 Urinary tract infection, site not specified; I10 Essential (primary) hypertension; I25.2 Old myocardial infarction; I50.9 Heart failure, unspecified; I25.10 Atherosclerotic heart disease of native coronary artery without angina pectoris; J06.9 Acute upper respiratory infection, unspecified; J40 Bronchitis, not specified as acute or chronic; E78.5 Hyperlipidemia, unspecified; E87.6 Hypokalemia; E03.9 Hypothyroidism, unspecified; K21.9 Gastro-esophageal reflux disease without esophagitis; K30 Functional dyspepsia; M19.90 Unspecified osteoarthritis, unspecified site; M81.0 Age-related osteoporosis without current pathological fracture; M47.9 Spondylosis, unspecified; F41.8 Other specified anxiety disorders; F17.210 Nicotine dependence, cigarettes, uncomplicated; D64.9 Anemia, unspecified; B96.89 Other specified bacterial agents as the cause of diseases classified elsewhere; Z72.0 Tobacco use
CPT/HCPCS: 36415; 80053; 81001; 82550; 82553; 84439; 84443; 84484; 85025; 87070; 87186; 93005; 93010; 94640; 97802; 99223; 99232; 99239; 99284

== ENCOUNTER 2018-02-05 11:18 | Outpatient (CLI) | END 2018-02-05 11:19 | disposition home or self-care (01) | LOC: LAB 11:18 | PROVIDERS: ATTEND Internal Medicine | DX: E87.6 Hypokalemia (principal); I10 Essential (primary) hypertension; Z12.5 Encounter for screening for malignant neoplasm of prostate | CPT/HCPCS: 36415; 80053; 80061 ==

== ENCOUNTER 2018-04-25 08:56 | Outpatient (CLI) | payer OTHER ==
[2018-03-12 11:19] VITALS: BMI 17.9
== END 2018-04-25 09:20 | disposition short-term general hospital (02) ==
LOC: AMBL 08:56
PROVIDERS: ATTEND Internal Medicine
DX: R55 Syncope and collapse (principal); M54.2 Cervicalgia; M54.6 Pain in thoracic spine; R06.02 Shortness of breath; R07.89 Other chest pain; I25.2 Old myocardial infarction; R52 Pain, unspecified; S41.111A Laceration without foreign body of right upper arm, initial encounter; S41.112A Laceration without foreign body of left upper arm, initial encounter

== ENCOUNTER 2018-08-18 18:08 | Outpatient (CLI) ==
[2018-08-18 18:30] VITALS: BMI 18.9
== END 2018-08-18 18:16 | disposition critical access hospital (66) ==
LOC: AMBL 18:08
PROVIDERS: ATTEND Internal Medicine
DX: R07.89 Other chest pain (principal); R00.0 Tachycardia, unspecified; R29.6 Repeated falls; W19.XXXA Unspecified fall, initial encounter

== ENCOUNTER 2018-08-18 18:23 | Emergency (ER) | payer OTHER ==
[2018-08-18 18:30] VITALS: BP 131/92; BMI 18.9
--- NOTE | 2018-08-18 18:43 | ED.PDOC ---
General ED Provider: Dr. MICKEY ESQUIVEL Chief Complaint: Chest Wall Injury/Pain Stated Complaint: 73 y ol;d with a combined complaint of chest discomfort,weak and lighjtheaded when trying to get up and smoker.Some degree of breathing impairement but speaks full sentenmces and in a good volume,However upon auscultation lungs sound congrested and with diminished breathing sounds.Also quite sensitive tgo touch,He saye he has a difficulty urinating. He meets the sepsis criteria. Time Seen by Physician: 18:35 Mode of Arrival: Ambulance Information Source: Patient Exam Limitations: Language barrier Primary Care Provider: USMAN ANTUNEZ Nursing and Triage Documentation Reviewed and Agree: Yes Does patient meet sepsis criteria?: No (overall picture not consistent with sepsis/.CT/ neg.Lab negVS impr.) System Inflammatory Response Syndrome: Not Applicable Sepsis Protocol: For patient's 13 years and over: Temp is 96.8 and below OR 101 and greater Pulse >90 BPM Resp >20/minute Acutely Altered Mental Status Are patient's symptoms suggestive of a new infection, such as: -Pneumonia -Skin, Soft Tissue -Endocarditis -UTI -Bone, Joint Infection -Implantable Device -Acute Abdominal Infection -Wound Infection -Meningitis -Blood Stream Catheter Infection -Unknown Cardiovascular Complaint Exam - Chest Pain Complaint/Exam Onset: Gradual Symptoms Are: Still present Timing: Intermittent Length of Chest Pain Episodes: hours Initial Severity: Moderate Current Severity: Mild Location: Reports: Right anterior Pain Radiates: Reports: Back, Left shoulder Character: Reports: Aching Aggravating: Reports: Movement Alleviating: Reports: Rest, Upright position Associated Signs and Symptoms: Reports: Fever, Back pain, Dizziness Related History: Reports: Similar episode Related Surgical History: Reports: None History of Healthcare-Acquired Pneumonia: Reports: No AMI/ACS Risk Factors: Reports: Sedentary, Hypertension TAD Risk Factors: Reports: Hypertension Pulmonary Embolism Risk Factors: Reports: Smoking Prior Care for this Complaint: Yes Recent Stress Test: No Recent Echo/LV Function: No JVD Present: No Subcutaneous Emphysema Present: No Diminshed Breath Sounds: Yes Reproducible Chest Wall Pain: Yes Bilateral Pulses Present: Yes Unequal Pulses Noted: No If Risk Factors for AMI/ACS Consider: EKG If Risk Factors for PE Consider: Chest CT with contrast Quality Indicator For Non-Traumatic Chest Pain/Syncope: EKG Performed Antibiotics Delayed Due To: Further testing required Patient Advised to Stop Smoking: Yes Review of Systems - Review Of Systems Constitutional: Reports: Fever Eyes: Reports: No symptoms Ears, Nose, Mouth, Throat: Reports: No symptoms Respiratory: Reports: Orthopnea, Wheezing, Other Cardiac: Reports: Chest pain, Lightheadedness, Other GI: Reports: Abdominal pain : Reports: Dysuria Musculoskeletal: Reports: Back pain, Muscle pain Skin: Reports: No symptoms Neurological: Reports: No symptoms Endocrine: Reports: No symptoms Hematologic/Lymphatic: Reports: No symptoms All Other Systems: Reviewed and Negative Past Medical History - Past Medical History Previously Healthy: No Endocrine: Reports: Dyslipidemia, Other (rheumatic fever as a child) Cardiovascular: Reports: Hypertension, A-Fib Respiratory: Reports: COPD Hematological: Reports: None, Other (rheumatic fever as a child) Gastrointestinal: Reports: GERD, Liver Genitourinary: Reports: None Neuro/Psych: Reports: None, Migraine Musculoskeletal: Reports: Arthritis (Osteoporosis), Back Pain, Other Cancer: Reports: None Other Pertinent Past Medical History: BACK PROBLEMS, EMPHESEMA: 12/06/15 hospitalized 12/04/15. with back pain. - Surgical History General Surgical History: Reports: Cholecystectomy, Orthopedic (SEVERAL PAST OPERATIONS ON RIGHT HIP Right knee pins/rods/plates placed, Rt hip replaced), Back Surgery (multiple lower back sx), Hernia Repair (Hernia (2017)) - Family History Family History: Reports: None - Social History Smoking Status: Current every day smoker, Heavy tobacco smoker Hx Substance Use: No Alcohol Screening: None - Immunizations Influenza Vaccine within 12 Months: No Pneumococcal Vaccine up to Date: Yes (LAST YEAR) Physical Exam - Physical Exam Appearance: Ill-appearing Ill-appearing: Moderate Pain Distress: Mild Eyes: NEYDA, EOMI, Conjunctiva clear ENT: Ears normal, Nose normal Neck: Supple Respiratory: Airway patent, Breath sounds diminished Cardiovascular: Pulses normal, No rub GI/: Soft, No masses, Bowel sounds normal Musculoskeletal: Normal strength, No calf tenderness Skin: Warm, Dry Neurological: Sensation intact, Motor intact, Reflexes intact Psychiatric: Affect appropriate Interpretation - Radiology Interpretation Radiology Interpretation By: Radiologist Radiology Results: No acute changes Exam Interpreted: CXR Radiology Interpretation By: Radiologist Radiology Results: No acute changes Exam Interpreted: CT Scan Re-Evaluation - Re-Evaluation Time of Re-Evaluation: 21:17 Status: Improved Vital Signs Stable: Yes (ct showing no PE and no infiltrates) Critical Care Note - Critical Care Note Total Time (mins): 0 Course - Course Hematology/Chemistry: 08/18/18 19:06 08/18/18 19:06 Orders, Labs, Meds: Lab Review 08/18/18 08/18/18 08/18/18 19:06 19:06 19:06 WBC 8.54 RBC 4.02 L Hgb 11.5 L Hct 35.1 L MCV 87.3 MCH 28.6 MCHC 32.8 RDW Coeff of Nino 17.5 H Plt Count 208 Immature Gran % (Auto) 0.5 Neut % (Auto) 61.2 Lymph % (Auto) 27.0 [place] % (Auto) 10.0 Eos % (Auto) 0.0 Baso % (Auto) 1.3 Immature Gran # (Auto) 0.0 Neut # (Auto) 5.2 Lymph # (Auto) 2.3 [place] # (Auto) 0.9 Eos # (Auto) 0.0 Baso # (Auto) 0.1 PT INR APTT D-Dimer (Manual) Sodium 138.8 Potassium 4.40 Chloride 100.9 Carbon Dioxide 28.1 Anion Gap 14.20 BUN 25.7 H Creatinine 1.04 Estimated GFR (MDRD) 70.00 BUN/Creatinine Ratio 24.71 Glucose 115.8 H Lactic Acid 1.06 Calcium 8.88 Total Bilirubin 0.39 AST 21.5 ALT 10.0 Alkaline Phosphatase 91.5 Total Creatine Kinase 91.0 Troponin I < 0.012 NT-Pro-B Natriuret Pep 208.000 H Total Protein 7.05 Albumin 4.60 Globulin 2.45 Albumin/Globulin Ratio 1.87 Procalcitonin 08/18/18 08/18/18 08/18/18 19:06 19:06 19:06 WBC RBC Hgb Hct MCV MCH MCHC RDW Coeff of Nino Plt Count Immature Gran % (Auto) Neut % (Auto) Lymph % (Auto) [place] % (Auto) Eos % (Auto) Baso % (Auto) Immature Gran # (Auto) Neut # (Auto) Lymph # (Auto) [place] # (Auto) Eos # (Auto) Baso # (Auto) PT 9.7 INR 0.97 APTT 22.7 L D-Dimer (Manual) 2035.36 Sodium Potassium Chloride Carbon Dioxide Anion Gap BUN Creatinine Estimated GFR (MDRD) BUN/Creatinine Ratio Glucose Lactic Acid Calcium Total Bilirubin AST ALT Alkaline Phosphatase Total Creatine Kinase Troponin I NT-Pro-B Natriuret Pep Total Protein Albumin Globulin Albumin/Globulin Ratio Procalcitonin < 0.05 Orders Category Date Time Status EKG-(ED ONLY) Stat CARDIO 08/18/18 19:31 Completed NEBULIZER TREATMENT Stat CARDIO 08/18/18 18:56 Completed NPO REMINDER: IMAGING ONCE CARE 08/18/18 19:32 Completed Vital signs [ED VITAL SIGNS] .ONCE EMERGENCY 08/18/18 19:01 Active BLOOD CULTURE (ED ONLY) Stat LAB 08/18/18 19:20 Received CBC W/ AUTO DIFF Stat LAB 08/18/18 19:06 Completed COMPREHENSIVE METABOLIC PANEL Stat LAB 08/18/18 19:06 Completed CREATINE KINASE Stat LAB 08/18/18 19:06 Completed D-DIMER Stat LAB 08/18/18 19:06 Completed LACTIC ACID Stat LAB 08/18/18 19:06 Completed NT-PROBNP Stat LAB 08/18/18 19:06 Completed PARTIAL THROMBOPLASTIN TIME Stat LAB 08/18/18 19:06 Completed PROCALCITONIN Stat LAB 08/18/18 19:06 Completed PT WITH INR Stat LAB 08/18/18 19:06 Completed TROPONIN I Stat LAB 08/18/18 19:06 Completed URINALYSIS C & S IF INDICATED Stat LAB 08/18/18 20:06 Ordered 0.9 % Sodium Chloride [Saline Flush] MEDS 08/18/18 18:53 Ordered 1 syr IVF PRN PRN Albuterol Sulfate 0.083% Neb [Albuterol 0.083% Neb] MEDS 08/18/18 18:55 Discontinued 1 vial NEB ONCE STA Ketorolac Tromethamine [Toradol] MEDS 08/18/18 19:13 Discontinued 30 mg IM ONCE STA Sodium Chloride 0.9% [Sodium Chloride] 500 ml MEDS 08/18/18 18:54 Discontinued IV BOLUS CHEST, 1V AP ONLY Stat RADS 08/18/18 18:[address] ABDOMEN/PELVIS WO CONTRAST Stat RADS 08/18/18 18:[address] CHEST PE PROTOCOL Stat RADS 08/18/18 19:31 Completed Medications Generic Name Dose Route Start Last Admin Trade Name Freq PRN Reason Stop Dose Admin Sodium Chloride 1 syr 08/18/18 18:53 Saline Flush IVF PRN PRN To flush IV Discontinued Medications Generic Name Dose Route Start Last Admin Trade Name Rosalind PRN Reason Stop Dose Admin Albuterol Sulfate 1 vial 08/18/18 18:55 08/18/18 19:35 Albuterol 0.083% Neb NEB 08/18/18 18:56 1 vial ONCE STA Administration Sodium Chloride 500 mls @ 500 mls/hr 08/18/18 18:54 08/18/18 20:01 Sodium Chloride IV 08/18/18 19:53 500 mls/hr BOLUS STA Administration Ketorolac Tromethamine 30 mg 08/18/18 19:13 08/18/18 20:01 Toradol IM 08/18/18 19:14 30 mg ONCE STA Administration Vital Signs: Temp Pulse Resp BP Pulse Ox 08/18/18 20:01 99.0 F 08/18/18 18:24 99.6 F 114 H 28 H 131/92 H 96 JALEN Risk Score JALEN Risk Score: Risk Score Odds of by 30D 0 0.1 (0.1-0.2) 1 0.3 (0.2-0.3) 2 0.4 (0.3-0.5) 3 0.7 (0.6-0.9) 4 1.2 (1.0-1.5) 5 2.2 (1.9-2.6) 6 3.0 (2.5-3.6) 7 4.8 (3.8-6.1) Departure - Departure Time of Disposition: 21:28 Disposition: HOME SELF-CARE Discharge Problem: Abdominal hernia Instructions: Emphysema (ED) Condition: Good Pt referred to PMD for follow-up: Yes IPMP verified?: No Allergies/Adverse Reactions: Allergies No Known Allergies Allergy (Verified 03/12/18 11:21) Home Medications: Ambulatory Orders Hydrocodone/Acetaminophen [[place]a 10-325 Tablet] 1 each PO Q4HR PRN 01/30/18 Disposition Discussed With: Patient, Family
[2018-08-18] MEDS ORDERED: SODIUM CHLORIDE 500 ML IV STA (18:54)
[2018-08-18] MEDS ORDERED: ALBUTEROL 0.083% NEB NEB STA (18:55)
[2018-08-18] MEDS ORDERED: TORADOL IM STA (19:13)
[2018-08-18 20:02] VITALS: TEMP 99
--- NOTE | 2018-08-18 20:17 | CT ---
EXAM: CT abdomen and pelvis without contrast HISTORY: Abdominal discomfort, difficulty urinating TECHNIQUE: Multi-slice transaxial helical with coronal and sagittal reformed images COMPARISON: CT abdomen/pelvis from 10/06/2017 FINDINGS: The lung bases are free of acute airspace or interstitial opacities. The heart size is nor mal. There are no pericardial or pleural effusions. The lungs are emphysematous. Calcified granulomas are noted within the liver and spleen. The hepatic attenuation is diffusely low relative to the spleen. The gallbladder is surgically absent. No biliary dilatation is appreciated . The pancreas and left adrenal gland are normal. There is a low attenuation nodule in the right ad renal gland measuring 2.1 cm. This is overall unchanged. The kidneys have normal size and attenuation. No nephrolithiasis or ureterolithiasis are evident. N o ureteral pelvicaliectasis is appreciated. The nonopacified bladder is partially obscured from beam -hardening artifact created by the patient's right hip artifact. No bladder distension is evident. A left inguinal hernia transmits non incarcerated loops of small bowel. No intestinal distension is appreciated. The abdominal aorta is atherosclerotic. No lymphadenopathy or ascites are appreciated. The bones are free of suspicious osteolytic or osteoblastic lesions. Previous vertebral augmentation has been performed at L2. There are mild chronic compression deformities at T12, L1, L3, L4, and po ssibly L5. A right total hip prosthetic is in place without periprosthetic lucency. IMPRESSION: 1. Emphysema. 2. Benign right adrenal adenoma. 3. Mild diffuse hepatic steatosis. 4. No biliary dilatation. 5. No nephrolithiasis, ureterolithiasis, or ureteral pelvicaliectasis. 5. Right inguinal hernia transmitting non pressure loops of small bowel. 6. Multiple chronic lumbar vertebral compression deformities. 7. Nonobstructive intestinal gas pattern. 8. ASCVD.
--- NOTE | 2018-08-18 20:57 | DI ---
EXAM: Portable AP view of the chest CLINICAL HISTORY: Chest pain. FINDINGS: Comparison is made to the exam dated 01/30/2018. The heart size and mediastinal contours ar e normal. No masses are seen. No infiltrates are demonstrated. No pneumothorax is evident. No eff usions are seen. Bony structures are grossly intact. The aorta is atherosclerotic. IMPRESSION: No acute cardiopulmonary process
--- NOTE | 2018-08-18 20:59 | CT ---
EXAM: CT of the chest with contrast angiography for pulmonary embolism. CLINICAL HISTORY: Shortness of breath. TECHNIQUE: Multiple axial images were obtained through the chest with contrast. Sagittal and melo l reformats were obtained. MIP images were also reviewed. FINDINGS: The lungs show no evidence of mass, infiltrate, or effusion. Emphysematous changes are se en. Atherosclerotic changes are noted. No pneumothorax is seen. No areas of consolidation are note d. The heart size is normal. No mediastinal adenopathy is seen. The visualized portions of the thy roid gland are normal. No filling defects are seen within the main pulmonary trunk, right or left pulmonary arteries, segmen shelly branches, or subsegmental branches. The thoracic aorta is normal. Upper abdominal viscera are also normal. IMPRESSION: No evidence of pulmonary embolism Atherosclerosis Emphysema
== END 2018-08-18 21:45 | disposition home or self-care (01) ==
LOC: ED 18:23
DX: R07.9 Chest pain, unspecified (principal); R53.1 Weakness; R42 Dizziness and giddiness; Z72.0 Tobacco use; R50.9 Fever, unspecified; M54.9 Dorsalgia, unspecified; R10.9 Unspecified abdominal pain; R30.0 Dysuria; K46.9 Unspecified abdominal hernia without obstruction or gangrene
CPT/HCPCS: 36415; 80053; 82550; 83605; 83880; 84145; 84484; 85025; 85379; 85610; 85730; 87040; 93005; 93010; 94640; 96375; 99284

== ENCOUNTER 2018-08-26 15:40 | Outpatient (CLI) | END 2018-08-26 15:57 | disposition short-term general hospital (02) | LOC: AMBL 15:40 | PROVIDERS: ATTEND Emergency Medicine | DX: R06.03 Acute respiratory distress (principal); R06.2 Wheezing; M54.9 Dorsalgia, unspecified; R05 Cough; Z99.81 Dependence on supplemental oxygen ==

== ENCOUNTER 2018-09-04 10:57 | Outpatient (CLI) | END 2018-09-04 10:58 | disposition home or self-care (01) | LOC: RHC-LAB 10:57 → FCC-LAB 10:58 | PROVIDERS: ATTEND Nurse Practitioner Family | DX: M81.0 Age-related osteoporosis without current pathological fracture (principal); I20.8 Other forms of angina pectoris; R06.02 Shortness of breath | CPT/HCPCS: 36415; 82306; 83880 ==

== ENCOUNTER 2018-09-29 09:04 | Outpatient (CLI) | END 2018-09-29 09:05 | disposition home or self-care (01) | LOC: LAB 09:04 | PROVIDERS: ATTEND Nurse Practitioner Family | DX: D64.9 Anemia, unspecified (principal) | CPT/HCPCS: 36415; 82607; 82728; 82746; 83540; 83550 ==

== ENCOUNTER 2018-10-09 09:08 | Outpatient (CLI) | END 2018-10-09 09:09 | disposition home or self-care (01) | LOC: CAR 09:08 | PROVIDERS: ATTEND Nurse Practitioner Family | DX: J44.9 Chronic obstructive pulmonary disease, unspecified (principal); Z99.81 Dependence on supplemental oxygen | CPT/HCPCS: 94761 ==

== ENCOUNTER 2018-10-17 19:07 | Emergency (ER) ==
[2018-10-17 19:15] VITALS: BP 157/116; TEMP 99.2; BMI 17.9
[2018-10-17] MEDS: SOLU-MEDROL 125 MG IVP STA (19:31)
[2018-10-17] MEDS: LASIX IVP STA (19:32)
[2018-10-17] MEDS: XOPENEX 1.25 MG NEB STA (20:05)
[2018-10-17] MEDS: DUONEB NEB STA (20:15)
--- NOTE | 2018-10-17 20:36 | CT ---
EXAM: CT of the chest without contrast History: Dyspnea. Comparison: Chest CT 08/10/2017 Technique: Multiplanar CT images through the thorax were obtained without the administration of IV c ontrast Findings: Heart size is normal. Coronary calcifications. No change in the 4 cm ascending aortic an eurysm. No pathologically enlarged thoracic lymph nodes. Calcified granulomas again seen within the thorax. Emphysema again noted. No consolidation. No pleural fluid and no pneumothorax. No suspic ious lung masses or lung nodules. Within the visualized upper abdomen, there is motion artifact. The liver is fatty. Status post chol ecystectomy. Calcified granulomas are seen within the liver and spleen. Small hiatal hernia. No ch aravind in the benign right adrenal adenoma. No change in the chronic compression deformities within th e spine. Osteopenia. Impression: 1. No acute intrathoracic process. 2. Emphysema. 3. No change in the 4 cm ascending aortic aneurysm. 4. Coronary artery disease. 5. Hepatic steatosis. 6. Small hiatal hernia. 7. Other findings as detailed above.
[2018-10-17] MEDS: ATIVAN IVP STA (20:56)
--- NOTE | 2018-10-17 21:12 | ED.PDOC ---
General ED Provider: Dr. AWA OCONNOR-ER Chief Complaint: Shortness of Air Stated Complaint: i cant breathe---i need to see my heart doctor Time Seen by Physician: 19:10 Mode of Arrival: Ambulance Information Source: Patient, EMT Exam Limitations: No limitations Primary Care Provider: NOLVIA BOLDEN Nursing and Triage Documentation Reviewed and Agree: Yes Does patient meet sepsis criteria?: No System Inflammatory Response Syndrome: Not Applicable Sepsis Protocol: For patient's 13 years and over: Temp is 96.8 and below OR 101 and greater Pulse >90 BPM Resp >20/minute Acutely Altered Mental Status Are patient's symptoms suggestive of a new infection, such as: -Pneumonia -Skin, Soft Tissue -Endocarditis -UTI -Bone, Joint Infection -Implantable Device -Acute Abdominal Infection -Wound Infection -Meningitis -Blood Stream Catheter Infection -Unknown Respiratory Complaint Exam - Shortness of Air Complaint/Exam Onset/Duration: 2 days Symptoms Are: Still present Timing: Constant Initial Severity: Mild Current Severity: Mild Character: Reports: Dyspnea at rest Alleviating: Reports: EMS treatment Associated Signs and Symptoms: Reports: Wheezing Cardiac Risk Factors: Reports: CAD Pseudomonas Risk Factors: Reports: Chronic Lung Disease Home Oxygen Use: No Recent Stress Test: No Recent Echo/LV Function: No Respiratory Distress: Mild Stridor Present: No Tracheal Deviation: No Subcutaneous Emphysema: No Accessory Muscle Use: No Retractions: Not Present Diminished Breath Sounds: No Prolonged Expiratory Phase: No Unable to Speak Full Sentences: No Fatigue: No Leg Swelling: No Kamron's Sign Present: No Grunting Respirations: No Kussmaul Respirations: No Differential Diagnoses: COPD Exacerbation Quality Indicator For Non-Traumatic Chest Pain/Syncope: EKG Performed Review of Systems - Review Of Systems Constitutional: Reports: No symptoms Eyes: Reports: No symptoms Ears, Nose, Mouth, Throat: Reports: No symptoms Respiratory: Reports: Cough, Short of air, Wheezing Cardiac: Reports: No symptoms GI: Reports: No symptoms : Reports: No symptoms Musculoskeletal: Reports: No symptoms Skin: Reports: No symptoms Neurological: Reports: No symptoms Endocrine: Reports: No symptoms Hematologic/Lymphatic: Reports: No symptoms All Other Systems: Reviewed and Negative Past Medical History - Past Medical History Previously Healthy: No Endocrine: Reports: Dyslipidemia, Other (rheumatic fever as a child) Cardiovascular: Reports: Hypertension, A-Fib Respiratory: Reports: COPD Hematological: Reports: None, Other (rheumatic fever as a child) Gastrointestinal: Reports: GERD, Liver Genitourinary: Reports: None Neuro/Psych: Reports: None, Migraine Musculoskeletal: Reports: Arthritis (Osteoporosis), Back Pain, Other Cancer: Reports: None Other Pertinent Past Medical History: BACK PROBLEMS, EMPHESEMA: 12/06/15 hospitalized 12/04/15. with back pain. - Surgical History General Surgical History: Reports: Cholecystectomy, Orthopedic (SEVERAL PAST OPERATIONS ON RIGHT HIP Right knee pins/rods/plates placed, Rt hip replaced), Back Surgery (multiple lower back sx), Hernia Repair (Hernia (2017)) - Family History Family History: Reports: None - Social History Smoking Status: Current some day smoker Hx Substance Use: No Alcohol Screening: Occasionally - Immunizations Tetanus Shot up to Date: Yes Influenza Vaccine within 12 Months: No Pneumococcal Vaccine up to Date: Yes (LAST YEAR) Physical Exam - Physical Exam Appearance: Well-appearing, No pain distress, Well-nourished Eyes: NEYDA, EOMI, Conjunctiva clear ENT: Ears normal, Nose normal, Oropharynx normal Neck: Supple Respiratory: Wheezes Cardiovascular: Tachycardia GI/: Soft, Nontender, No masses, Bowel sounds normal, No Organomegaly Musculoskeletal: Normal strength, ROM intact, No edema, No calf tenderness Skin: Warm, Dry, Normal color Neurological: Sensation intact, Motor intact, Reflexes intact, Cranial nerves intact, Alert, Oriented Psychiatric: Affect appropriate, Mood appropriate, Anxious Interpretation - Radiology Interpretation Radiology Interpretation By: Radiologist Radiology Results: Negative Exam Interpreted: CT Scan - EKG Interpretation Time of EKG #1: 21:12 Rate: Tachy Rhythm: Sinus Ectopy: None [place]: NL ST Segment: Normal Critical Care Note - Critical Care Note Total Time (mins): 0 Course - Course Hematology/Chemistry: 10/17/18 19:23 10/17/18 19:23 Orders, Labs, Meds: Lab Review 10/17/18 10/17/18 10/17/18 19:08 19:23 19:23 WBC 9.03 RBC 4.34 L Hgb 12.7 L Hct 37.7 L MCV 86.9 MCH 29.3 MCHC 33.7 RDW Coeff of Nino 17.3 H Plt Count 208 Immature Gran % (Auto) 0.3 Neut % (Auto) 57.7 Lymph % (Auto) 30.9 [place] % (Auto) 9.4 Eos % (Auto) 0.1 Baso % (Auto) 1.6 Immature Gran # (Auto) 0.0 Neut # (Auto) 5.2 Lymph # (Auto) 2.8 [place] # (Auto) 0.9 Eos # (Auto) 0.0 Baso # (Auto) 0.1 Puncture Site Lb O2 Saturation 99.0 ABG pH 7.473 H ABG pCO2 35.8 ABG pO2 117.0 H ABG HCO3 26.2 H ABG Total CO2 27 ABG Base Excess 3 H Braulio Test + O2 Delivery Device Bnc Oxygen Liter Flow 2.00 FiO2 % 28.0 Sodium 138.8 Potassium 4.19 Chloride 93.9 L Carbon Dioxide 26.8 Anion Gap 22.29 BUN 24.7 H Creatinine 1.06 Estimated GFR (MDRD) 68.00 BUN/Creatinine Ratio 23.30 Glucose 103.3 Calcium 9.24 Total Bilirubin 0.90 AST 49.8 ALT 26.5 Alkaline Phosphatase 105.2 Total Creatine Kinase 108.6 Troponin I 0.027 NT-Pro-B Natriuret Pep Total Protein 7.84 Albumin 4.89 Globulin 2.95 Albumin/Globulin Ratio 1.65 10/17/18 19:23 WBC RBC Hgb Hct MCV MCH MCHC RDW Coeff of Nino Plt Count Immature Gran % (Auto) Neut % (Auto) Lymph % (Auto) [place] % (Auto) Eos % (Auto) Baso % (Auto) Immature Gran # (Auto) Neut # (Auto) Lymph # (Auto) [place] # (Auto) Eos # (Auto) Baso # (Auto) Puncture Site O2 Saturation ABG pH ABG pCO2 ABG pO2 ABG HCO3 ABG Total CO2 ABG Base Excess Braulio Test O2 Delivery Device Oxygen Liter Flow FiO2 % Sodium Potassium Chloride Carbon Dioxide Anion Gap BUN Creatinine Estimated GFR (MDRD) BUN/Creatinine Ratio Glucose Calcium Total Bilirubin AST ALT Alkaline Phosphatase Total Creatine Kinase Troponin I NT-Pro-B Natriuret Pep 1210.000 H Total Protein Albumin Globulin Albumin/Globulin Ratio Orders Category Date Time Status ABG DRAW REQUEST Stat CARDIO 10/17/18 19:08 Ordered EKG-(ED ONLY) Stat CARDIO 10/17/18 19:08 Ordered NEBULIZER TREATMENT Stat CARDIO 10/17/18 19:09 Ordered ED SOLUTIONS SPECIALIST APPLIED .ONCE EMERGENCY 10/17/18 19:08 Active ED IV/MEDIPORT/POWERPORT .ONCE EMERGENCY 10/17/18 19:08 Active ABG Stat LAB 10/17/18 19:08 Completed CBC W/ AUTO DIFF Stat LAB 10/17/18 19:23 Completed COMPREHENSIVE METABOLIC PANEL Stat LAB 10/17/18 19:23 Completed CREATINE KINASE Stat LAB 10/17/18 19:23 Completed NT-PROBNP Stat LAB 10/17/18 19:23 Completed TROPONIN I Stat LAB 10/17/18 19:23 Completed 0.9 % Sodium Chloride [Saline Flush] MEDS 10/17/18 19:08 Ordered 1 syr IVF PRN PRN Furosemide [Lasix] MEDS 10/17/18 19:10 Discontinued 40 mg IVP ONCE STA Ipratropium/Albuterol Neb [Duoneb] MEDS 10/17/18 19:09 Discontinued 1 vial NEB ONCE STA Levalbuterol HCl [Xopenex 1.25 mg] MEDS 10/17/18 19:10 Discontinued 1 vial NEB ONCE STA Lorazepam [Ativan] MEDS 10/17/18 20:48 Discontinued 1 mg IVP ONCE STA Methylprednisolone Sod Succ/Pf [Solu-Medrol 125 mg] MEDS 10/17/18 19:09 Discontinued 125 [address] IVP ONCE [address]A CT CHEST W/O CONTRAST Stat RADS 10/17/18 19:09 Completed Medications Generic Name Dose Route Start Last Admin Trade Name Freq PRN Reason Stop Dose Admin Sodium Chloride 1 syr 10/17/18 19:08 Saline Flush IVF PRN PRN To flush IV Discontinued Medications Generic Name Dose Route Start Last Admin Trade Name Freq PRN Reason Stop Dose Admin Albuterol/Ipratropium 1 vial 10/17/18 19:09 10/17/18 20:15 Duoneb NEB 10/17/18 19:10 1 vial ONCE STA Administration Furosemide 40 mg 10/17/18 19:10 10/17/18 19:32 Lasix IVP 10/17/18 19:11 40 mg ONCE STA Administration Levalbuterol HCl 1 vial 10/17/18 19:10 10/17/18 20:05 Xopenex 1.25 Mg NEB 10/17/18 19:11 1 vial ONCE STA Administration Lorazepam 1 mg 10/17/18 20:48 10/17/18 20:56 Ativan IVP 06/28/19 20:49 1 mg ONCE STA Administration Methylprednisolone Sodium Succinate 125 mg 10/17/18 19:09 10/17/18 19:31 Solu-Medrol 125 Mg IVP 10/17/18 19:10 125 mg ONCE STA Administration Vital Signs: Temp Pulse Resp BP Pulse Ox 10/17/18 19:09 99.2 F 102 H 24 157/116 H 97 Departure - Departure Time of Disposition: 21:12 Disposition: TSF SHORT-TRM HOSP Discharge Problem: COPD (chronic obstructive pulmonary disease) Qualifiers: COPD type: unspecified COPD Qualified Code(s): J44.9 - Chronic obstructive pulmonary disease, unspecified Volume overload Qualifiers: Hypervolemia type: unspecified Qualified Code(s): E87.70 - Fluid overload, unspecified Instructions: COPD (Chronic Obstructive Pulmonary Disease) (ED) Condition: Stable Pt referred to PMD for follow-up: Yes IPMP verified?: No Allergies/Adverse Reactions: Allergies No Known Allergies Allergy (Verified 10/17/18 19:19) Home Medications: Ambulatory Orders Oxycodone HCl/Acetaminophen [Percocet 7.5-325 Mg Tablet] 1 each PO Q4-6H Pt. Stabilized Within Hospital's Capabilities/Transferred To: patient transferred to [facility](discussed [facility] cardiology) Transfer Form Completed: Yes Disposition Discussed With: Patient
== END 2018-10-17 22:00 | disposition short-term general hospital (02) ==
LOC: ED 19:07
DX: J44.9 Chronic obstructive pulmonary disease, unspecified (principal); E87.70 Fluid overload, unspecified; R06.02 Shortness of breath; I25.10 Atherosclerotic heart disease of native coronary artery without angina pectoris; E78.5 Hyperlipidemia, unspecified; I10 Essential (primary) hypertension; R00.0 Tachycardia, unspecified; F17.210 Nicotine dependence, cigarettes, uncomplicated
CPT/HCPCS: 36415; 80053; 82550; 82803; 83880; 84484; 85025; 93005; 93010; 94640; 96374; 96375; 99285

== ENCOUNTER 2018-11-15 15:52 | Emergency (ER) | payer OTHER ==
[2018-11-15 15:57] VITALS: BP 163/102; TEMP 98.6; BMI 18.2
[2018-11-15] MEDS ORDERED: DUONEB NEB STA (15:57)
--- NOTE | 2018-11-15 16:34 | DI ---
EXAM: Single view of the chest. History: Short of breath Comparison: Chest radiograph 01/30/2018 Findings: Heart size is normal. Chronic obstructive pulmonary disease with hyperinflation. Calcifi ed granulomas are again seen in the thorax. No consolidation. No pleural fluid and no pneumothorax. No acute osseous abnormalities. Atherosclerotic vascular calcifications. Impression: No acute cardiopulmonary process. Chronic obstructive pulmonary disease.
[2018-11-15] MEDS ORDERED: SODIUM CHLORIDE 1,000 ML IV STA (17:16)
[2018-11-15] MEDS ORDERED: ASPIRIN CHEWABLE PO STA (18:00)
--- NOTE | 2018-11-15 18:00 | ED.PDOC ---
General ED Provider: Dr. SPENCER GARIBAY Chief Complaint: Shortness of Air Stated Complaint: CHEST PAIN SHORT OF AIR STARTED 1 DAY AGO. SHORTLY P.T.A BECOME WORSE . THE PAIN RADIATED TO HIS BACK Time Seen by Physician: 15:55 (SEEN WITH TERRI BARBOSA MARCI AT ALL TIMES ) Mode of Arrival: Ambulance Information Source: Patient Exam Limitations: No limitations Primary Care Provider: NOLVIA BOLDEN Nursing and Triage Documentation Reviewed and Agree: Yes Does patient meet sepsis criteria?: No System Inflammatory Response Syndrome: Not Applicable Sepsis Protocol: For patient's 13 years and over: Temp is 96.8 and below OR 101 and greater Pulse >90 BPM Resp >20/minute Acutely Altered Mental Status Are patient's symptoms suggestive of a new infection, such as: -Pneumonia -Skin, Soft Tissue -Endocarditis -UTI -Bone, Joint Infection -Implantable Device -Acute Abdominal Infection -Wound Infection -Meningitis -Blood Stream Catheter Infection -Unknown Cardiovascular Complaint Exam - Chest Pain Complaint/Exam Onset: Gradual Duration: 1 DAY Symptoms Are: Still present Timing: Intermittent Length of Chest Pain Episodes: HOURS PT UNCERTAIN Initial Severity: Moderate Current Severity: Mild (MAINLY S.O.B .) Location: Reports: Midsternal Pain Radiates: Reports: Back Character: Reports: Dull, Aching Aggravating: Reports: None Alleviating: Reports: None Associated Signs and Symptoms: Reports: Hemoptysis, Back pain Related History: Reports: Similar episode Related Surgical History: Reports: None History of Healthcare-Acquired Pneumonia: Reports: No AMI/ACS Risk Factors: Reports: Sedentary, Hypertension, Smoking Review of Systems - Review Of Systems Constitutional: Reports: No symptoms Eyes: Reports: No symptoms Ears, Nose, Mouth, Throat: Reports: No symptoms Respiratory: Reports: Cough Cardiac: Reports: Chest pain GI: Reports: No symptoms : Reports: No symptoms Musculoskeletal: Reports: No symptoms Skin: Reports: No symptoms Neurological: Reports: No symptoms Endocrine: Reports: No symptoms Hematologic/Lymphatic: Reports: No symptoms All Other Systems: Reviewed and Negative Past Medical History - Past Medical History Previously Healthy: No Endocrine: Reports: Dyslipidemia, Other (rheumatic fever as a child) Cardiovascular: Reports: CAD (NSTEMI E.F=40%), Hypertension, A-Fib Respiratory: Reports: COPD Hematological: Reports: Anemia (IRON DIFF ), Other (rheumatic fever as a child) Gastrointestinal: Reports: GERD, Liver Genitourinary: Reports: None, Other (ADRENAL MASS LEFT, [facility] Neuro/Psych: Reports: None, Migraine Musculoskeletal: Reports: Arthritis (Osteoporosis), Back Pain, Other (CLOSED CPMPRESSIN FX OF [place]) Cancer: Reports: None Other Pertinent Past Medical History: BACK PROBLEMS, EMPHESEMA: 12/06/15 hospitalized 12/04/15. with back pain. - Surgical History General Surgical History: Reports: Cholecystectomy, Orthopedic (SEVERAL PAST OPERATIONS ON RIGHT HIP Right knee pins/rods/plates placed, Rt hip replaced), Back Surgery (multiple lower back sx), Hernia Repair (Hernia (2017)) - Family History Family History: Reports: None - Social History Smoking Status: Current some day smoker Hx Substance Use: No Alcohol Screening: Occasionally - Immunizations Influenza Vaccine within 12 Months: No Pneumococcal Vaccine up to Date: Yes (LAST YEAR) Physical Exam - Physical Exam Appearance: Ill-appearing Ill-appearing: Moderate Pain Distress: Mild Eyes: NEYDA, EOMI, Conjunctiva clear ENT: Dry mucosa Respiratory: Airway patent, Breath sounds diminished, Rhonchi Cardiovascular: RRR, Pulses normal, No rub, No murmur GI/: Soft, Nontender, No masses, Bowel sounds normal, No Organomegaly Musculoskeletal: Normal strength, ROM intact, No edema, No calf tenderness Skin: Warm, Dry, Normal color Neurological: Sensation intact, Motor intact, Reflexes intact, Cranial nerves intact, Alert, Oriented Psychiatric: Affect appropriate, Mood appropriate Interpretation - Radiology Interpretation Radiology Interpretation By: Radiologist Radiology Results: Negative Exam Interpreted: Portable CXR - Dictaphone Technician Rate: Normal Rhythm: Sinus Ectopy: PVCs - EKG Interpretation Rate: Normal Rhythm: Sinus Ectopy: PVCs [place]: NL ST Segment: Normal Re-Evaluation - Re-Evaluation Time of Re-Evaluation: 16:30 Status: Improved Vital Signs Stable: Yes Pain Level: 0 Appearance: NAD Lungs: Other (DIMINSHED BREATH SOUNDS , RONCHI) Skin: Warm and Dry Neuro: Alert and Oriented X3 CV: RRR - Re-Evaluation Time of Re-Evaluation: 18:06 Status: Improved Vital Signs Stable: Yes Pain Level: 0 Appearance: NAD Skin: Warm and Dry Neuro: Alert and Oriented X3 CV: RRR Physician Notification - Case Discussed Physician Notified: PMD Time of Notification: 18:08 (TRANSFER ) Physician Notified: DONALD KOENIG Time of Notification: 18:22 Critical Care Note - Critical Care Note Total Time (mins): 0 Course - Course Hematology/Chemistry: 11/15/18 16:13 11/15/18 16:13 Orders, Labs, Meds: Lab Review 11/15/18 11/15/18 11/15/18 15:58 16:13 16:13 WBC 11.81 H RBC 4.12 L Hgb 12.0 L Hct 36.6 L MCV 88.8 MCH 29.1 MCHC 32.8 RDW Coeff of Nino 17.0 H Plt Count 232 Immature Gran % (Auto) 0.5 Neut % (Auto) 71.1 Lymph % (Auto) 15.7 [place] % (Auto) 11.9 H Eos % (Auto) 0.0 Baso % (Auto) 0.8 Immature Gran # (Auto) 0.1 Neut # (Auto) 8.4 H Lymph # (Auto) 1.9 [place] # (Auto) 1.4 Eos # (Auto) 0.0 Baso # (Auto) 0.1 D-Dimer (Manual) Puncture Site Rr O2 Saturation 96.0 ABG pH 7.49 H ABG pCO2 39.4 ABG pO2 76.0 L ABG HCO3 30.3 H ABG Total CO2 31 H ABG Base Excess 7 H Braulio Test + FiO2 % 21.0 Sodium 137.5 Potassium 3.81 Chloride 93.2 L Carbon Dioxide 31.3 H Anion Gap 16.81 BUN 18.1 Creatinine 1.10 Estimated GFR (MDRD) 65.00 BUN/Creatinine Ratio 16.45 Glucose 115.7 H Lactic Acid Calcium 9.06 Total Bilirubin 0.74 AST 26.1 ALT 16.6 Alkaline Phosphatase 111.3 Total Creatine Kinase 98.6 Troponin I < 0.012 Total Protein 7.60 Albumin 4.52 Globulin 3.08 Albumin/Globulin Ratio 1.46 Procalcitonin 11/15/18 11/15/18 11/15/18 16:13 16:13 16:13 WBC RBC Hgb Hct MCV MCH MCHC RDW Coeff of Nino Plt Count Immature Gran % (Auto) Neut % (Auto) Lymph % (Auto) [place] % (Auto) Eos % (Auto) Baso % (Auto) Immature Gran # (Auto) Neut # (Auto) Lymph # (Auto) [place] # (Auto) Eos # (Auto) Baso # (Auto) D-Dimer (Manual) 3531.92 Puncture Site O2 Saturation ABG pH ABG pCO2 ABG pO2 ABG HCO3 ABG Total CO2 ABG Base Excess Braulio Test FiO2 % Sodium Potassium Chloride Carbon Dioxide Anion Gap BUN Creatinine Estimated GFR (MDRD) BUN/Creatinine Ratio Glucose Lactic Acid 1.33 Calcium Total Bilirubin AST ALT Alkaline Phosphatase Total Creatine Kinase Troponin I Total Protein Albumin Globulin Albumin/Globulin Ratio Procalcitonin 0.05 Orders Category Date Time Status ABG DRAW REQUEST Stat CARDIO 11/15/18 15:58 Completed EKG-(ED ONLY) Stat CARDIO 11/15/18 18:01 Completed NEBULIZER TREATMENT Stat CARDIO 11/15/18 15:57 Completed IV ACCESS ONCE CARE 11/15/18 15:57 Active NPO REMINDER: IMAGING ONCE CARE 11/15/18 17:16 Active ABG Stat LAB 11/15/18 15:58 Completed BLOOD CULTURE Stat LAB 11/15/18 16:40 Received CBC W/ AUTO DIFF Stat LAB 11/15/18 16:13 Completed COMPREHENSIVE METABOLIC PANEL Stat LAB 11/15/18 16:13 Completed CREATINE KINASE Stat LAB 11/15/18 16:13 Completed D-DIMER Stat LAB 11/15/18 16:13 Completed LACTIC ACID Stat LAB 11/15/18 16:13 Completed PROCALCITONIN Stat LAB 11/15/18 16:13 Completed TROPONIN I Stat LAB 11/15/18 16:13 Completed Aspirin [Aspirin Chewable] MEDS 11/15/18 18:00 Discontinued 324 mg PO ONCE STA Ipratropium/Albuterol Neb [Duoneb] MEDS 11/15/18 15:57 Discontinued 1 vial NEB ONCE STA Sodium Chloride 0.9% [Sodium Chloride] 1,000 ml MEDS 11/15/18 17:16 Active IV 125 mls/hr CHEST, 1V AP ONLY Stat RADS 11/15/18 15:[address] CHEST PE PROTOCOL Stat RADS 11/15/18 17:16 Completed Medications Generic Name Dose Route Start Last Admin Trade Name Freq PRN Reason Stop Dose Admin Sodium Chloride 1,000 mls @ 125 mls/hr 11/15/18 17:16 11/15/18 17:50 Sodium Chloride IV 11/16/18 01:15 125 mls/hr .Q8H STA Administration Discontinued Medications Generic Name Dose Route Start Last Admin Trade Name Freq PRN Reason Stop Dose Admin Albuterol/Ipratropium 1 vial 11/15/18 15:57 11/15/18 16:19 Duoneb NEB 11/15/18 15:58 1 vial ONCE STA Administration Aspirin 324 mg 11/15/18 18:00 11/15/18 18:09 Aspirin Chewable PO 11/15/18 18:01 324 mg ONCE STA Administration Vital Signs: Temp Pulse Resp BP Pulse Ox 11/15/18 15:53 98.6 F 76 24 163/102 H 95 JALEN Risk Score JALEN Risk Score: Risk Score Odds of by 30D 0 0.1 (0.1-0.2) 1 0.3 (0.2-0.3) 2 0.4 (0.3-0.5) 3 0.7 (0.6-0.9) 4 1.2 (1.0-1.5) 5 2.2 (1.9-2.6) 6 3.0 (2.5-3.6) 7 4.8 (3.8-6.1) Departure - Departure Time of Disposition: 18:22 Disposition: TSF SHORT-TRM HOSP Discharge Problem: COPD (chronic obstructive pulmonary disease) Qualifiers: COPD type: unspecified COPD Qualified Code(s): J44.9 - Chronic obstructive pulmonary disease, unspecified Chest pain Qualifiers: Chest pain type: unspecified Qualified Code(s): R07.9 - Chest pain, unspecified Anemia Qualifiers: Anemia type: unspecified type Qualified Code(s): D64.9 - Anemia, unspecified Instructions: Angina (DC) Condition: Good Pt referred to PMD for follow-up: Yes IPMP verified?: No Additional Instructions: Please call your Family Physician as soon as possible to schedule a follow-up appointment. Allergies/Adverse Reactions: Allergies No Known Allergies Allergy (Uncoded 11/15/18 15:57) Home Medications: Ambulatory Orders Hydrocodone Bit/Acetaminophen [[place] 10-325] 1 each PO Q4HR PRN 11/15/18 Transfer Form Completed: Yes Disposition Discussed With: Patient
--- NOTE | 2018-11-15 18:10 | CT ---
EXAM: CTA of the chest. History: Chest pain, elevated D-dimer. Comparison: Chest CT 10/17/2018 Technique: Multiplanar CT images through the thorax were obtained following administration of IV con trast. MIP images and 3-D reconstructions were also acquired. Findings: Heart size is normal. Coronary calcifications. No change in the 4 cm ascending thoracic aortic aneurysm. No pulmonary arterial filling defects. No pathologically enlarged lymph nodes. Em physema. No consolidation. No pleural fluid and no pneumothorax. Calcified granulomas are again se en within the thorax. There is diffuse bronchial wall thickening. No suspicious lung masses or lung nodules. Within the visualized upper abdomen, the liver is fatty. Calcified granulomas seen within the liver and spleen. Stable chronic compression deformities within the spine. Impression: 1. No pulmonary embolism. 2. Diffuse bronchial wall thickening but no consolidated pneumonia. 3. Emphysema. 4. Coronary artery disease. 5. No change in the 4 cm ascending aortic aneurysm. 6. Hepatic steatosis
== END 2018-11-15 20:20 | disposition short-term general hospital (02) ==
LOC: ED 15:52
DX: J44.9 Chronic obstructive pulmonary disease, unspecified (principal); R07.9 Chest pain, unspecified; R06.02 Shortness of breath; D64.9 Anemia, unspecified; I10 Essential (primary) hypertension; E78.5 Hyperlipidemia, unspecified; I25.10 Atherosclerotic heart disease of native coronary artery without angina pectoris; F17.210 Nicotine dependence, cigarettes, uncomplicated; Z87.19 Personal history of other diseases of the digestive system
CPT/HCPCS: 36415; 80053; 82550; 82803; 83605; 84145; 84484; 85025; 85379; 87040; 93005; 93010; 94640; 96360; 99285

== ENCOUNTER 2018-12-21 11:43 | Outpatient (CLI) | payer OTHER | END 2018-12-21 11:57 | disposition short-term general hospital (02) | LOC: AMBL 11:43 | PROVIDERS: ATTEND Family Medicine | DX: R53.1 Weakness (principal); R06.02 Shortness of breath; R07.9 Chest pain, unspecified; R06.2 Wheezing; R00.0 Tachycardia, unspecified; R73.9 Hyperglycemia, unspecified; M54.9 Dorsalgia, unspecified; Z79.899 Other long term (current) drug therapy ==